=== PATIENT | female | born 1970 | race Hispanic/Latino ===

== ENCOUNTER 2017-09-30 16:00 | Outpatient (RCR) | payer OTHER, SELFPAY ==
--- NOTE | 2017-08-18 15:55 | PT.OTN ---
Current Diagnoses Effusion, right knee (08/18/17) Stiffness of right knee, not elsewhere classified (08/18/17) Muscle weakness (generalized) (08/18/17) Other abnormalities of gait and mobility (08/18/17) Other tear of lateral meniscus, current injury, right knee, initial encounter (08/18/17) Other tear of lateral meniscus, current injury, right knee, subsequent encounter (08/18/17) Transition note: On August 17, 2017 our therapy services consisting of Speech, Occupational, and Physical Therapy transitioned from the [employer] electronic documentation system to a new [employer] electronic documentation system.?? All documentation prior to August 17 can be found under [employer] saved data. From August 17 forward all medical record documentation will be in [employer] 6.1.
--- NOTE | 2017-08-18 17:35 | PT.OTN ---
Current Diagnoses Effusion, right knee (08/18/17) Stiffness of right knee, not elsewhere classified (08/18/17) Muscle weakness (generalized) (08/18/17) Other abnormalities of gait and mobility (08/18/17) Other tear of lateral meniscus, current injury, right knee, initial encounter (08/18/17) Other tear of lateral meniscus, current injury, right knee, subsequent encounter (08/18/17) Physical Therapy Treatment Note PT-OP-A Visit Information Start: 08/18/17 16:01 Freq: Status: Active Protocol: Activity Type Activity Date Activity User E-Sign Co-Sign Detail Recorded Client Recorded Date Recorded By Document 08/18/17 17:10 [facility] [email or web address] 08/18/17 17:34 [facility] 08/18/17 17:10 Out-Patient Physical Therapy Visit Information [Visit Information] -Visit Type Treatment Note -Visit Start Time 15:15 -Visit Stop Time 16:08 -Total Visit Minutes 53 -Visit Number 2/ of current auth. (60 total/yr) -Number of CHIEF OPERATOR SYNTHESIS Visits 0 [Evaluation Information] -Evaluation Date 08/13/17 PT-OP-C Subjective Start: 08/18/17 16:01 Freq: Status: Active Protocol: Activity Type Activity Date Activity User E-Sign Co-Sign Detail Recorded Client Recorded Date Recorded By Document 08/18/17 17:10 [facility] [email or web address] 08/18/17 17:34 [facility] 08/18/17 17:10 OP-PT Subjective [Patient Comments] -Patient Comments Pt notes that she has been doing her HEP as instructed. She still has some pain with immediate walking upon prolonged sitting. -Patient Reported Progress Improving PT-OP-K Range of Motion Start: 08/18/17 16:01 Freq: Status: Active Protocol: Activity Type Activity Date Activity User E-Sign Co-Sign Detail Recorded Client Recorded Date Recorded By Document 08/18/17 17:10 [facility] [email or web address] 08/18/17 17:34 [facility] 08/18/17 17:10 Knee Goniometric Range of Motion [Knee] Measured in Degrees Right -Knee ROM WFL No -Patient Position Supine -Extension Active (degrees) 2 -Extension Passive (degrees) 0 PT-OP-Q Treatments Start: 08/18/17 16:01 Freq: Status: Active Protocol: Activity Type Activity Date Activity User E-Sign Co-Sign Detail Recorded Client Recorded Date Recorded By Document 08/18/17 17:10 [place] [id number] 08/18/17 17:34 [facility] 08/18/17 17:10 Gym Equipment [Shuttle Recovery] Unilateral Squats -Details bilateral -Resistance 25 -Shuttle Recovery Platform Stable -Reps/Time 15 Bilateral Squats -Resistance 50 -Shuttle Recovery Platform Stable -Reps/Time 15 [Shuttle Balance] 1 -Details Red- DL normal, semi-tandem -Reps/Duration 4 Therapeutic Exercises [Supine Exercises] 1 -Supine Exercise Name SLR flexion- neutral and RLE ER -Side right -Reps/Minutes 15 neutral, 8 with ER [Sidelying Exercises] 1 -Sidelying Exercise Name clamshells -Side right -Reps/Minutes 20 [Standing Exercises] 2 -Standing Exercise Name Gastroc stretch -Side bilateral -Equipment Used THAI -Reps/Minutes 3 min 1 -Standing Exercise Name TKE -Side right -Resistance L3 band -Reps/Minutes 20 Manual Therapy Treatment [Joint Mobilizations] 2 -Joint PF joint -Direction superior, inferior, medial -Grade IV -Body Position Supine -Reps/Duration 11 min 1 -Joint Tibiofemoral -Direction A/P -Grade IV -Body Position Supine -Reps/Duration 8 min PT-OP-R Modalities Start: 08/18/17 16:01 Freq: Status: Active Protocol: Activity Type Activity Date Activity User E-Sign Co-Sign Detail Recorded Client Recorded Date Recorded By Document 08/18/17 17:10 [email or web address] 08/18/17 17:34 [facility] 08/18/17 17:10 Hot Pack/Cold Pack [Treatment] Cold Pack -Location R knee- ant/ posterior -Patient Position Supine -Treatment Duration (minutes) 10 -Patient Tolerance Good PT-OP-T Assessment and Plan Start: 08/18/17 16:01 Freq: Status: Active Protocol: Activity Type Activity Date Activity User E-Sign Co-Sign Detail Recorded Client Recorded Date Recorded By Document 08/18/17 17:10 [place] [id number] 08/18/17 17:34 [facility] 08/18/17 17:10 Physical Therapy Assessment [Rehab Potential] -Rehabilitation Potential Excellent [Impairments] -Impairments Balance Pain ROM [Assessment Summary] -Assessment Pt tolerated manual therapy with improved standing R knee ROM (able to achieve full extension in standing). Pt requires occasional tactile cuing to prevent hip rotation with TKE activity. Pt with c/o pain during Shuttle Recovery, but decreased when lowered resistance. Physical Therapy Plan [Frequency and Duration] -Frequency of Treatment 2x/Week -Duration of Treatment 53 -Plan of Care Start Date 08/13/17 [Next Visit Focus/Plan] -Next Visit Plan R knee ROM and strength progression, prone vs standing HS curls, standing balance, heel raises.
--- NOTE | 2017-08-25 17:43 | PT.OTN ---
Current Diagnoses Effusion, right knee (08/25/17) Stiffness of right knee, not elsewhere classified (08/25/17) Muscle weakness (generalized) (08/25/17) Other abnormalities of gait and mobility (08/25/17) Other tear of lateral meniscus, current injury, right knee, initial encounter (08/25/17) Other tear of lateral meniscus, current injury, right knee, subsequent encounter (08/25/17) Physical Therapy Treatment Note PT-OP-A Visit Information Start: 08/18/17 16:01 Freq: Status: Active Protocol: Document 08/25/17 17:30 [facility] (Rec: 08/25/17 17:43 [facility] [email or web address]) Out-Patient Physical Therapy Visit Information Visit Information Visit Type Treatment Note Visit Start Time 15:13 Visit Stop Time 15:53 Total Visit Minutes 40 Visit Number 3 of current auth. (60 total/yr) Number of GRIZZLY WORKER Visits 0 PT-OP-C Subjective Start: 08/18/17 16:01 Freq: Status: Active Protocol: Document 08/25/17 17:30 [facility] (Rec: 08/25/17 17:43 [facility] [email or web address]) OP-PT Subjective Patient Comments Patient Comments Pt reports more confidence with stairs although she admits she almost slipped in the shower again. Patient Reported Progress Improving PT-OP-K Range of Motion Start: 08/18/17 16:01 Freq: Status: Active Protocol: Document 08/25/17 17:30 [facility] (Rec: 08/25/17 17:43 [facility] [email or web address]) Knee Goniometric Range of Motion Knee Measured in Degrees Right Extension Active (degrees) 0 PT-OP-Q Treatments Start: 08/18/17 16:01 Freq: Status: Active Protocol: Document 08/25/17 17:30 [facility] (Rec: 08/25/17 17:43 [facility] [email or web address]) Gym Equipment Cable Column (Body Solid) Leg Curl Details bilateral Resistance 2 plates Reps/Time 15 reps Shuttle Recovery Unilateral Squats Resistance 25 Shuttle Recovery Platform Stable Reps/Time 15 reps Bilateral Squats Resistance 50 Shuttle Recovery Platform Stable Reps/Time 20 reps Shuttle Balance 1 Details Red- DL normal, semi-tandem, lateral WBOS Reps/Duration 8 min. Therapeutic Ball 1 Exercise Details bilateral knee flex/ext. Ball Size/Color 55 cm red Body Position Supine Reps/Duration 25 reps Therapeutic Exercises Prone Exercises 1 Prone Exercise Name Planks- forward Reps/Minutes 1 rep. Comments 35 sec to fatigue. Standing Exercises 2 Standing Exercise Name Gastroc stretch Side bilateral Equipment Used THAI Reps/Minutes 3 min Manual Therapy Treatment Joint Mobilizations 2 Joint PF joint Direction superior, inferior, medial Grade IV Body Position Supine Reps/Duration 10 min. PT-OP-T Assessment and Plan Start: 08/18/17 16:01 Freq: Status: Active Protocol: Document 08/25/17 17:30 [facility] (Rec: 08/25/17 17:43 [facility] [email or web address]) Physical Therapy Assessment Assessment Summary Assessment Pt able to achieve 0 degrees of knee extension AROM this session, but still with c/o pain during active movement and does not tolerate body weight exercises as of this time. Overall, pt appears to be improving, but will require ongoing progression as tolerated with strengthening, maintaining ROM, and improvements with balance and return to prior level of function. Physical Therapy Plan Frequency and Duration Frequency of Treatment 2x/Week Duration of Treatment 53 Plan of Care Start Date 08/13/17 Next Visit Focus/Plan Next Visit Plan progression of knee strengthening, balance, toward CKC activities.
--- NOTE | 2017-09-03 16:18 | PT.OTN ---
Current Diagnoses Effusion, right knee (09/03/17) Stiffness of right knee, not elsewhere classified (09/03/17) Muscle weakness (generalized) (09/03/17) Other abnormalities of gait and mobility (09/03/17) Other tear of lateral meniscus, current injury, right knee, initial encounter (09/03/17) Other tear of lateral meniscus, current injury, right knee, subsequent encounter (09/03/17) Physical Therapy Treatment Note PT-OP-A Visit Information Start: 08/18/17 16:01 Freq: Status: Active Protocol: Document 09/03/17 15:59 [facility] (Rec: 09/03/17 16:17 [facility] [email or web address]) Out-Patient Physical Therapy Visit Information Visit Information Visit Type Treatment Note Visit Start Time 15:15 Visit Stop Time 16:05 Total Visit Minutes 50 Visit Number 06/28 (60 total/yr) Number of PLUG STITCHER Visits 0 Evaluation Information Evaluation Date 08/13/17 PT-OP-C Subjective Start: 08/18/17 16:01 Freq: Status: Active Protocol: Document 09/03/17 15:59 [facility] (Rec: 09/03/17 16:17 [facility] [email or web address]) OP-PT Subjective Patient Comments Patient Comments Pt reports she has been doing her HEP. She is able to do stairs without c/o pain. Patient Reported Progress Improving PT-OP-K Range of Motion Start: 08/18/17 16:01 Freq: Status: Active Protocol: Document 09/03/17 15:59 [facility] (Rec: 09/03/17 16:17 [facility] [email or web address]) Knee Goniometric Range of Motion Knee Measured in Degrees Right Knee ROM WFL Yes Patient Position Supine Flexion Active (degrees) 135 Flexion Passive (degrees) 145 Extension Active (degrees) 0 Hyper-Extension Active 2 PT-OP-Q Treatments Start: 08/18/17 16:01 Freq: Status: Active Protocol: Document 09/03/17 15:59 [facility] (Rec: 09/03/17 16:17 [facility] [email or web address]) Gym Equipment Shuttle Recovery Unilateral Squats Resistance 75 Shuttle Recovery Platform Stable Reps/Time 20 reps Bilateral Squats Resistance 112 Shuttle Recovery Platform Stable Reps/Time 20 reps Shuttle Balance 1 Details Red- DL normal, semi-tandem, lateral WBOS Reps/Duration 5 min. Therapeutic Exercises Supine Exercises 1 Supine Exercise Name SLR flexion- neutral and RLE ER Side right Resistance 2 Reps/Minutes 15 each Standing Exercises 3 Standing Exercise Name 1/2 lunges with BOSU for L knee Reps/Minutes 10 reps Comments UE assist 2 Standing Exercise Name Gastroc stretch Side bilateral Equipment Used THAI Reps/Minutes 3 min Gait Training Gait Activity 1 Description 6 steps Device Used none Level of Assistance indep. Treatment Focus 2 min Comments no rails. Mild ER of R foot descending steps. Manual Therapy Treatment Joint Mobilizations 2 Joint PF joint Direction superior, inferior, medial Grade IV Body Position Supine Reps/Duration 4 min. Neuro Re-Education Treatment Balance Activities 1 Details DL standing on BOSU Surface black and blue surface Comments 4 min. PT-OP-R Modalities Start: 08/18/17 16:01 Freq: Status: Active Protocol: Document 09/03/17 15:59 [facility] (Rec: 09/03/17 16:17 [facility] [email or web address]) Hot Pack/Cold Pack Treatment Cold Pack Location R knee- ant/posterior Patient Position Supine Treatment Duration (minutes) 10 Patient Tolerance Good PT-OP-T Assessment and Plan Start: 08/18/17 16:01 Freq: Status: Active Protocol: Document 09/03/17 15:59 [facility] (Rec: 09/03/17 16:17 [facility] [email or web address]) Physical Therapy Assessment Assessment Summary Assessment Pt's R knee ROM is at normal ranges at this time, no pain with knee ROM testing. Pt still with lateral pain in the knee with stabilization training, and demonstrates loss of balance when on Shuttle Balance first aid trainer due to impaired tolerance to increased WB on the R knee. Pt unable to complete a full lunge due to hesitancy of increased weight on the R knee , although she reports she was able to do this before injury without difficulty. Physical Therapy Plan Frequency and Duration Frequency of Treatment 2x/Week Duration of Treatment 53 Plan of Care Start Date 08/13/17 Next Visit Focus/Plan Next Visit Plan Balance training, weight shifting to RLE to improve tolerance with increased function and recreation.
--- NOTE | 2017-09-08 17:58 | PT.OTN ---
Addendum entered and electronically signed by Nathan Cardoso, PT 09/08/17 17:59: inaccurate treatment duration under physical therapy plan- duration for this treatment was 40 min. Original Note: Current Diagnoses Effusion, right knee (09/08/17) Stiffness of right knee, not elsewhere classified (09/08/17) Muscle weakness (generalized) (09/08/17) Other abnormalities of gait and mobility (09/08/17) Other tear of lateral meniscus, current injury, right knee, initial encounter (09/08/17) Other tear of lateral meniscus, current injury, right knee, subsequent encounter (09/08/17) Physical Therapy Treatment Note PT-OP-A Visit Information Start: 08/18/17 16:01 Freq: Status: Active Protocol: Document 09/08/17 15:55 [facility] (Rec: 09/08/17 17:57 [facility] [email or web address]) Out-Patient Physical Therapy Visit Information Visit Information Visit Type Treatment Note Visit Start Time 15:15 Visit Stop Time 15:55 Total Visit Minutes 40 Visit Number 5/12 (60 total/yr) Number of EMPLOYMENT OFFICER Visits 0 Evaluation Information Evaluation Date 08/13/17 PT-OP-C Subjective Start: 08/18/17 16:01 Freq: Status: Active Protocol: Document 09/08/17 15:55 [facility] (Rec: 09/08/17 17:57 [facility] [email or web address]) OP-PT Subjective Patient Comments Patient Comments Pt states that weight shifting onto the RLE is still the most painful activity. PT-OP-Q Treatments Start: 08/18/17 16:01 Freq: Status: Active Protocol: Document 09/08/17 15:55 [facility] (Rec: 09/08/17 17:57 [facility] [email or web address]) Gym Equipment Shuttle Recovery Unilateral Squats Resistance 50 Shuttle Recovery Platform Stable Reps/Time 15 reps Bilateral Squats Resistance 112 Shuttle Recovery Platform Unstable Reps/Time 20 reps Shuttle Balance 1 Details Red- DL normal, semi-tandem, lateral WBOS Reps/Duration 5 min. Sport Cord 1 Exercise Details Resisted walk- fwd, bkwd, lateral Cord/Resistance black with blue Reps/Duration 6 each Manual Therapy Treatment Soft Tissue Mobilization 2 Body Location R Lateral hamstring Mobilization Type Strumming Intensity/Depth Moderate Body Position Supine 1 Body Location R lateral knee @ arthroscopic incision Mobilization Type Myofascial Release Intensity/Depth Moderate Body Position Supine Joint Mobilizations 2 Joint PF joint Direction superior, inferior, medial Grade IV Body Position Supine Reps/Duration 6 min. PT-OP-R Modalities Start: 08/18/17 16:01 Freq: Status: Active Protocol: Document 09/03/17 15:59 [facility] (Rec: 09/03/17 16:17 [facility] [email or web address]) Hot Pack/Cold Pack Treatment Cold Pack Location R knee- ant/posterior Patient Position Supine Treatment Duration (minutes) 10 Patient Tolerance Good PT-OP-T Assessment and Plan Start: 08/18/17 16:01 Freq: Status: Active Protocol: Document 09/08/17 15:55 [facility] (Rec: 09/08/17 17:57 [facility] [email or web address]) Physical Therapy Assessment Assessment Summary Assessment Pt with impaired eccentric control with WB on the RLE with resisted walking, and tendency to lean to the L with lateral balancing on the Shuttle Balance Board. Pt with tenderness at the lateral HS and joint line at arthroscopic incisional area, but improving. Physical Therapy Plan Frequency and Duration Frequency of Treatment 2x/Week Duration of Treatment 53 Plan of Care Start Date 08/13/17 Next Visit Focus/Plan Next Visit Plan Step up/down with resistance from sports cord, cont to advance weight shifting and equal standing weight distribution. Please Sign and Return: I have reviewed this Plan of Care and certify that the skilled therapy services above are required to meet the patient???s needs. Physician Signature Date Printed Name and Credentials Clinical Instructor Signature Printed Name and Credentials
--- NOTE | 2017-09-10 16:49 | PT.OTN ---
Current Diagnoses Effusion, right knee (09/10/17) Stiffness of right knee, not elsewhere classified (09/10/17) Muscle weakness (generalized) (09/10/17) Other abnormalities of gait and mobility (09/10/17) Other tear of lateral meniscus, current injury, right knee, initial encounter (09/10/17) Other tear of lateral meniscus, current injury, right knee, subsequent encounter (09/10/17) Physical Therapy Treatment Note PT-OP-A Visit Information Start: 08/18/17 16:01 Freq: Status: Active Protocol: Document 09/10/17 15:54 [facility] (Rec: 09/10/17 15:59 [facility] [email or web address]) Out-Patient Physical Therapy Visit Information Visit Information Visit Type Treatment Note Visit Start Time 15:19 Visit Stop Time 15:54 Total Visit Minutes 35 Visit Number 09/28 (60 total/yr) Number of AD TAKER Visits 0 Evaluation Information Evaluation Date 08/13/17 PT-OP-C Subjective Start: 08/18/17 16:01 Freq: Status: Active Protocol: Document 09/10/17 15:54 [facility] (Rec: 09/10/17 15:59 [facility] [email or web address]) OP-PT Subjective Patient Comments Patient Comments Pt notes that she is still having trouble wanting to increased WB on the RLE. Her knee was sore after previous session. PT-OP-F Manual Assessment Start: 09/10/17 15:54 Freq: Status: Active Protocol: Document 09/10/17 15:54 [facility] (Rec: 09/10/17 15:59 [facility] [email or web address]) Manual Assessments Joint Mobility Assessment Joint Mobility Assessment Hypomobile: PF medial, inf, superior glides PT-OP-K Range of Motion Start: 08/18/17 16:01 Freq: Status: Active Protocol: Document 09/03/17 15:59 [facility] (Rec: 09/03/17 16:17 [facility] [email or web address]) Knee Goniometric Range of Motion Knee Measured in Degrees Right Knee ROM WFL Yes Patient Position Supine Flexion Active (degrees) 135 Flexion Passive (degrees) 145 Extension Active (degrees) 0 Hyper-Extension Active 2 PT-OP-Q Treatments Start: 08/18/17 16:01 Freq: Status: Active Protocol: Document 09/10/17 15:54 [facility] (Rec: 09/10/17 15:59 [facility] [email or web address]) Gym Equipment Cable Column (Body Solid) Leg Extension Details bilateral Resistance 3 plates Reps/Time 20 reps Leg Curl Details bilateral Resistance 3 plates Reps/Time 20 reps Shuttle Balance 1 Details Red- DL normal, semi-tandem, lateral WBOS Reps/Duration 5 min. Therapeutic Exercises Standing Exercises 4 Standing Exercise Name Step up/down on 5 step with sports cord resistance Side bilateral Resistance black with blue SC Reps/Minutes 10 each PT-OP-R Modalities Start: 08/18/17 16:01 Freq: Status: Active Protocol: Document 09/03/17 15:59 [facility] (Rec: 09/03/17 16:17 [facility] [email or web address]) Hot Pack/Cold Pack Treatment Cold Pack Location R knee- ant/posterior Patient Position Supine Treatment Duration (minutes) 10 Patient Tolerance Good PT-OP-T Assessment and Plan Start: 08/18/17 16:01 Freq: Status: Active Protocol: Document 09/10/17 15:54 [facility] (Rec: 09/10/17 16:48 [facility] [email or web address]) Physical Therapy Assessment Assessment Summary Assessment Pt with hesitancy to place RLE in WB onto unstable surfaces, but improved after gentle part-practice into full motion of activity. Pt still with c/ o discomfort in the lateral R knee, and would greatly benefit from the continuation of skilled physical therapy to improve her gait and functional mobility to premorbid levels. Physical Therapy Plan Frequency and Duration Frequency of Treatment 2x/Week Plan of Care Start Date 08/13/17 Next Visit Focus/Plan Next Note Type Treatment Note Next Visit Plan prog. standing balance, R knee strengthening as tolerated. Please Sign and Return: I have reviewed this Plan of Care and certify that the skilled therapy services above are required to meet the patient???s needs. Physician Signature Date Printed Name and Credentials Clinical Instructor Signature Printed Name and Credentials
--- NOTE | 2017-09-15 17:10 | PT.OTN ---
Current Diagnoses Effusion, right knee (09/15/17) Stiffness of right knee, not elsewhere classified (09/15/17) Muscle weakness (generalized) (09/15/17) Other abnormalities of gait and mobility (09/15/17) Other tear of lateral meniscus, current injury, right knee, initial encounter (09/15/17) Other tear of lateral meniscus, current injury, right knee, subsequent encounter (09/15/17) Physical Therapy Treatment Note PT-OP-A Visit Information Start: 08/18/17 16:01 Freq: Status: Active Protocol: Document 09/15/17 15:55 [facility] (Rec: 09/15/17 17:10 [facility] [email or web address]) Out-Patient Physical Therapy Visit Information Visit Information Visit Type Treatment Note Visit Start Time 15:15 Visit Stop Time 15:55 Total Visit Minutes 40 Visit Number 10/28 (60 total/yr) Number of DIRECTOR EDUCATION Visits 0 Evaluation Information Evaluation Date 08/13/17 PT-OP-C Subjective Start: 08/18/17 16:01 Freq: Status: Active Protocol: Document 09/15/17 15:55 [facility] (Rec: 09/15/17 17:10 [facility] [email or web address]) OP-PT Subjective Patient Comments Patient Comments Pt notes pain along L joint line and some lateral hamstring musculature this session. PT-OP-F Manual Assessment Start: 09/10/17 15:54 Freq: Status: Active Protocol: Document 09/15/17 15:55 [facility] (Rec: 09/15/17 17:10 [facility] [email or web address]) Manual Assessments Soft Tissue Assessment Soft Tissue Mobility Assessment TTP: lateral HS R knee Joint Mobility Assessment Joint Mobility Assessment Hypomobile: PF medial, inf, superior glides R knee PT-OP-Q Treatments Start: 08/18/17 16:01 Freq: Status: Active Protocol: Document 09/15/17 15:55 [facility] (Rec: 09/15/17 17:10 [facility] [email or web address]) Gym Equipment Cable Column (Body Solid) Leg Extension Details bilateral Resistance 3 plates Reps/Time 20 reps Leg Curl Details bilateral, unilateral Resistance 4 plates B, 3 plate U Reps/Time 15 reps Shuttle Balance 1 Details Red- DL normal, lateral WBOS Reps/Duration 10 min. Comments with and without perturbations . Therapeutic Exercises Sitting Exercises 1 Sitting Exercise Name Stool scoots (HS) Side bilateral Reps/Minutes 30 ft Standing Exercises 5 Standing Exercise Name Fitter Side bilateral Reps/Minutes 15 reps 4 Standing Exercise Name Step up/down on 5 step with sports cord resistance Side bilateral Resistance black with blue SC Reps/Minutes 12 each Comments fwd, bkwd, R and crossover with RLE going L Manual Therapy Treatment Soft Tissue Mobilization 2 Body Location R Lateral hamstring Mobilization Type Strumming Intensity/Depth Moderate Body Position Supine 1 Body Location R lateral knee @ arthroscopic incision Mobilization Type Myofascial Release Intensity/Depth Moderate Body Position Supine Joint Mobilizations 2 Joint PF joint Direction superior, inferior, medial Grade IV Body Position Supine Reps/Duration 6 min. PT-OP-T Assessment and Plan Start: 08/18/17 16:01 Freq: Status: Active Protocol: Document 09/15/17 15:55 [facility] (Rec: 09/15/17 17:10 [facility] [email or web address]) Physical Therapy Assessment Assessment Summary Assessment Pt requires UE assistance on Shuttle Balance Board with perturbations, but effective to increase WB on the R affected side. Pt was able to do cross-over step up onto 5 step with verbal encouragement due to fear of WB on the RLE. Physical Therapy Plan Frequency and Duration Frequency of Treatment 2x/Week Duration of Treatment 8 weeks Plan of Care Start Date 08/13/17 Plan of Care End Date 10/07/17 Next Visit Focus/Plan Next Note Type Treatment Note Next Visit Plan progress HS and quad strength R knee, standing balance and balance reactions. Please Sign and Return: I have reviewed this Plan of Care and certify that the skilled therapy services above are required to meet the patient???s needs. Physician Signature Date Printed Name and Credentials Clinical Instructor Signature Printed Name and Credentials
--- NOTE | 2017-09-30 17:17 | PT.OTN ---
Current Diagnoses Effusion, right knee (09/30/17) Stiffness of right knee, not elsewhere classified (09/30/17) Muscle weakness (generalized) (09/30/17) Other abnormalities of gait and mobility (09/30/17) Other tear of lateral meniscus, current injury, right knee, initial encounter (09/30/17) Other tear of lateral meniscus, current injury, right knee, subsequent encounter (09/30/17) Physical Therapy Treatment Note PT-OP-A Visit Information Start: 08/18/17 16:01 Freq: Status: Active Protocol: Document 09/30/17 16:55 RCC (Rec: 09/30/17 17:15 RCC [email or web address]) Out-Patient Physical Therapy Visit Information Visit Information Visit Type Treatment Note Visit Start Time 16:02 Visit Stop Time 16:55 Total Visit Minutes 55 Visit Number 11/28 (60 total/yr) Number of INSTRUMENTATION AND CONTROLS TECHNICIAN Visits 0 Evaluation Information Evaluation Date 08/13/17 PT-OP-C Subjective Start: 08/18/17 16:01 Freq: Status: Active Protocol: Document 09/30/17 16:55 RCC (Rec: 09/30/17 17:16 RCC [email or web address]) OP-PT Subjective Patient Comments Patient Comments Pt notes mild swelling in the R knee. Overall, she still has difficulty with placing increased WB on the RLE. PT-OP-F Manual Assessment Start: 09/10/17 15:54 Freq: Status: Active Protocol: Document 09/30/17 16:55 RCC (Rec: 09/30/17 17:15 RCC [email or web address]) Manual Assessments Soft Tissue Assessment Soft Tissue Mobility Assessment TTP: lateral R knee joint line near arthroscopic incision. PT-OP-K Range of Motion Start: 08/18/17 16:01 Freq: Status: Active Protocol: Document 09/03/17 15:59 RCC (Rec: 09/03/17 16:17 RCC [email or web address]) Knee Goniometric Range of Motion Knee Measured in Degrees Right Knee ROM WFL Yes Patient Position Supine Flexion Active (degrees) 135 Flexion Passive (degrees) 145 Extension Active (degrees) 0 Hyper-Extension Active 2 PT-OP-Q Treatments Start: 08/18/17 16:01 Freq: Status: Active Protocol: Document 09/30/17 16:55 RCC (Rec: 09/30/17 17:15 RCC [email or web address]) Gym Equipment Shuttle Recovery Unilateral Squats Resistance 50 Shuttle Recovery Platform Stable Reps/Time 15 reps Bilateral Squats Resistance 100 Shuttle Recovery Platform Stable Reps/Time 25 reps Shuttle Balance 1 Details Red- DL normal, lateral WBOS Reps/Duration 5 min. Comments with and without perturbations . Sport Cord 2 Exercise Details Step up/down- fwd, bkwd, lateral & cross-over Cord/Resistance blue with black Reps/Duration 10 each Comments 5 step Therapeutic Exercises Standing Exercises 3 Standing Exercise Name 1/2 lunges with BOSU (blue) Side right Reps/Minutes 10 reps 1 Standing Exercise Name Wall squats Side bilateral Equipment Used 55 cm ball Reps/Minutes 10 reps Manual Therapy Treatment Soft Tissue Mobilization 1 Body Location R lateral knee @ arthroscopic incision Mobilization Type Myofascial Release Intensity/Depth Moderate Body Position Supine Joint Mobilizations 2 Joint PF joint Direction superior, inferior, medial Grade IV Body Position Supine Reps/Duration 8 min. PT-OP-R Modalities Start: 08/18/17 16:01 Freq: Status: Active Protocol: Document 09/30/17 16:55 RCC (Rec: 09/30/17 17:16 [facility] [email or web address]) Hot Pack/Cold Pack Treatment Cold Pack Location R knee- ant/posterior Patient Position Supine Treatment Duration (minutes) 10 Patient Tolerance Good PT-OP-T Assessment and Plan Start: 08/18/17 16:01 Freq: Status: Active Protocol: Document 09/30/17 16:55 RCC (Rec: 09/30/17 17:15 [facility] [email or web address]) Physical Therapy Assessment Assessment Summary Assessment Pt still with anxiety/ apprehension to place increased WB on the RLE on stable and unstable surfaces. Pt unable to perform full squat on ball with wall, but did achieve ~70 degrees of knee flexion. Physical Therapy Plan Frequency and Duration Frequency of Treatment 2x/Week Duration of Treatment 8 weeks Plan of Care Start Date 08/13/17 Plan of Care End Date 10/07/17 Next Visit Focus/Plan Next Note Type Progress Note Next Visit Plan reassess objective measures Please Sign and Return: I have reviewed this Plan of Care and certify that the skilled therapy services above are required to meet the patient?s needs. Physician Signature Date Printed Name and Credentials Clinical Instructor Signature Printed Name and Credentials
--- NOTE | 2018-01-26 09:40 | PT.OPDS ---
Current Diagnoses Effusion, right knee (09/30/17) Stiffness of right knee, not elsewhere classified (09/30/17) Muscle weakness (generalized) (09/30/17) Other abnormalities of gait and mobility (09/30/17) Other tear of lateral meniscus, current injury, right knee, initial encounter (09/30/17) Other tear of lateral meniscus, current injury, right knee, subsequent encounter (09/30/17) Provider Visit Care Team Role Provider Type Sagar Martin MD Attending Provider Physician Family Provider Primary Care Provider Specialty: Family Practice Address: [address] [place] [address] Email: [email or web address] Visit Number Visit Number 11/28 (60 total/yr) Discharge Summary PT-OP-C Subjective Start: 08/18/17 16:01 Freq: Status: Active Protocol: Document 01/26/18 09:36 RCC (Rec: 01/26/18 09:40 RCC [email or web address]) OP-PT Subjective Patient Comments Patient Comments Pt cancelled her final PT appointments, has not attended PT since 09/30/2017 for her R knee. She states she is still having some difficulty with weight shifting, but doing better overall. PT-OP-F Manual Assessment Start: 09/10/17 15:54 Freq: Status: Active Protocol: Document 09/30/17 16:55 RCC (Rec: 09/30/17 17:15 RCC [email or web address]) Manual Assessments Soft Tissue Assessment Soft Tissue Mobility Assessment TTP: lateral R knee joint line near arthroscopic incision. PT-OP-K Range of Motion Start: 08/18/17 16:01 Freq: Status: Active Protocol: Document 09/03/17 15:59 RCC (Rec: 09/03/17 16:17 RCC [email or web address]) Knee Goniometric Range of Motion Knee Measured in Degrees Right Knee ROM WFL Yes Patient Position Supine Flexion Active (degrees) 135 Flexion Passive (degrees) 145 Extension Active (degrees) 0 Hyper-Extension Active 2 PT-OP-T Assessment and Plan Start: 08/18/17 16:01 Freq: Status: Active Protocol: Document 01/26/18 09:36 RCC (Rec: 01/26/18 09:40 RCC [email or web address]) Physical Therapy Assessment Assessment Summary Assessment Pt last attended physical therapy on 09/30/2017, and did not attend any further appointments during the most recent plan of care. Overall, pt was improving with gait and stairs, but still somewhat with difficulty in weight shifting due to apprehension/ anxiety vs. pain. Pt will be discharged at this time, as she has not been seen in this clinic for nearly 4 months. Recommend follow up with surgeon if issues/concerns continue. Unable to perform objective measures, as pt did not return for her re- evaluation. Physical Therapy Plan Discharge Physical Therapy Discharge Reasons No Longer Attending PT Discharge Comments pt did not complete most recent POC.
== END 2018-01-28 11:33 ==
LOC: PHYS 16:00
PROVIDERS: Family Provider Family Medicine; PCP Family Medicine; Visit Provider Family Medicine
DX: S83.281A Other tear of lateral meniscus, current injury, right knee, initial encounter (principal); S83.281D Other tear of lateral meniscus, current injury, right knee, subsequent encounter; R26.89 Other abnormalities of gait and mobility; M62.81 Muscle weakness (generalized); M25.661 Stiffness of right knee, not elsewhere classified; M25.461 Effusion, right knee
CPT/HCPCS: 97010; 97110; 97112; 97140

== ENCOUNTER 2017-12-04 09:30 | Emergency (ER) | payer OTHER, SELFPAY ==
[2017-12-04 09:36] VITALS: BP 135/92; PULSE 126; RESP 18; TEMP 37.1; O2SAT 100; BMI 31.1
--- NOTE | 2017-12-04 09:50 | DI.RAD.S_ITS ---
PROCEDURE: XR CHEST 1V INDICATIONS: suspected sepsis TECHNIQUE: One view of the chest was acquired. COMPARISON: None. FINDINGS: Surgical changes and devices: None. Lungs and pleura: No pleural effusions or pneumothorax. Lungs are clear. Mediastinum: Mediastinal contours appear normal. Heart size is normal. Bones and chest wall: No suspicious bony lesions. Overlying soft tissues appear unremarkable. IMPRESSION: No acute process. Dictated by: Humberto Fulton M.D. on 12/04/2017 at 10:32 Approved by: Humberto Fulton M.D. on 12/04/2017 at 10:33
[2017-12-04 09:55] LABS: Bacteria Urine None Seen
[2017-12-04 09:56] LABS: Appearance Urine UA SL CLOUDY; Bilirubin Urine UA 2+ (NEGATIVE); Color Urine UA ORANGE; Glucose Urine UA TRACE g/dL (Normal); Ketones Urine UA 1+ (NEGATIVE); Leukocyte Esterase Urine UA TRACE (NEGATIVE); Nitrite Urine UA Negative (Negative); Occult Blood Urine UA 2+ (Negative); Protein Urine UA 3+ (Negative); pH Urine UA 5.5 (4.5-8.0)
[2017-12-04 10:01] LABS: Ictotest Urine Positive (Negative)
[2017-12-04 10:03] LABS: Culture Indicated Urine Cult Not Indicated; Granular Casts Urine 0-1/LPF; RBC Urine 5-10/HPF (0-5/HPF); Squamous Epithelial Cell Urine 5-10 /HPF; WBC Urine 1-5/HPF (0-5/HPF)
[2017-12-04 10:11] VITALS: BP 141/92; PULSE 120; RESP 18; TEMP 37.7; O2SAT 100
[2017-12-04 10:17] LABS: Add Manual Diff / Slide Review NO; Basophils Percent Auto 0.3 % (0-2); Eosinophils Percent Auto 0.1 % (2-4); Hematocrit 40.6 % (36-46); Hemoglobin 13.9 g/dL (12.0-16.0); Lymphocytes Percent Auto 7.9 % (25-40); Mean Corpuscular HGB Conc 34.2 % (30-36); Mean Corpuscular Hemoglobin 29.9 PG (26-34); Mean Corpuscular Volume 87.4 fL (80-100); Monocytes Percent Auto 6.9 % (3-14); Neutrophils Absolute Auto 10600 /uL (3000-5900); Neutrophils Percent Auto 84.8 % (50-75); Platelet Count 127 X10^3/uL (150-400); Red Blood Cell Count 4.65 X10^6/uL (4.0-5.2); Red Cell Distribution Width 14.6 % (11.6-14.8); White Blood Cell Count 12.5 X10^3/uL (4.5-11.0)
[2017-12-04] MEDS: SODIUM CHLORIDE 0.9% 1,000 ML 1000 ML IV ×2 (10:17→12:05)
[2017-12-04 10:24] LABS: INR 1.3 (0.9-1.3); Prothrombin Time 14.6 SECONDS (10.1-12.7)
[2017-12-04 10:26] LABS: PTT Partial Thromboplastin Tim 28 SECONDS (26.4-36.2)
[2017-12-04 10:29] LABS: Alanine Aminotransferase 106 IU/L (9-52); Albumin 3.7 g/dL (3.5-5.0); Alkaline Phosphatase 124 U/L (38-126); Aspartate Aminotransferase 77 IU/L (14-36); Bilirubin Total 1.3 mg/dL (0.2-1.3); Blood Urea Nitrogen 14 mg/dL (7-17); Calcium 8.3 mg/dL (8.4-10.2); Carbon Dioxide 25 mmol/L (22-32); Chloride 96 mmol/L (98-107); Estimated Glomerular Filt Rate 59.2 mL/min (>60); Globulin 3.6 g/dL (1.7-4.1); Glucose 120 mg/dL (70-100); HEMOLYSIS 82 (0-50); Lactate (Lactic Acid) 1.2 mmol/L (0.7-2.1); Lipase 82 U/L (23-300); Potassium 4.4 mmol/L (3.4-5.1); Sodium 130 mmol/L (137-145); Total Protein 7.3 g/dL (6.3-8.2)
--- NOTE | 2017-12-04 10:34 | DI.CT.S_ITS ---
PROCEDURE: CT ABDOMEN PELVIS W CON INDICATIONS: left sided abd Pain TECHNIQUE: After the administration of intravenous contrast, 5 mm thick sections acquired from the diaphragm to the symphysis. 5 mm coronal and sagittal reformats were acquired. For radiation dose reduction, the following was used: automated exposure control, adjustment of mA and/or kV according to patient size. COMPARISON: [facility], CT, KIDNEY/ URETER/BLADDER, 04/16/2015, 10:04. FINDINGS: Image quality: Excellent. ABDOMEN: Lung bases: Lung bases are clear. Heart size is normal. Solid organs: Liver is normal in size and enhancement. Gallbladder is within normal limits. Biliary system is non dilated. Pancreas enhances normally. Spleen is normal in size and enhancement. No adrenal nodules. Right kidney is within normal limits. There is mild left renal enlargement. Wedge-shaped regions of hypoperfusion throughout the left kidney are present. Peritoneum and bowel: Bowel loops demonstrate normal wall thickness and caliber. No free fluid or air. Normal appendix. Nodes and vessels: No retroperitoneal or mesenteric adenopathy by size criteria. Aorta and inferior vena cava are normal in size. Miscellaneous: No ventral hernias. PELVIS: Genitourinary: Bladder wall thickness is normal. 54 mm diameter left ovarian cyst is present. 12 mm cystic focus within the endometrial canal. Miscellaneous: No inguinal hernias or adenopathy. Bones: No suspicious bony lesions. No vertebral body compression fractures. IMPRESSION: 1. Left pyelonephritis. 2. Normal appendix. 3. 54 mm diameter left ovarian cyst, as well as small endometrial cystic focus. Followup ultrasound in 6 weeks is recommended to ensure resolution, and to exclude underlying malignancy. 4. Small amount of free fluid within the pelvis, within physiological limits in a menstruating female. Dictated by: Humberto Fulton M.D. on 12/04/2017 at 11:23 Approved by: Humberto Fulton M.D. on 12/04/2017 at 11:27
[2017-12-04] MEDS: HYDROMORPHONE 1 MG INJ IV (10:52)
[2017-12-04 10:58] LABS: Procalcitonin 3.54 ng/mL (<0.5)
[2017-12-04 11:29] VITALS: BP 127/72; PULSE 103; RESP 16; O2SAT 99
[2017-12-04] MEDS: CEFTRIAXONE 1 GM/50 ML FROZ.PIGGY IV (11:46)
[2017-12-04 12:00] VITALS: BP 136/84; PULSE 103; O2SAT 97
[2017-12-04 12:35] VITALS: BP 137/78; PULSE 108; RESP 14; TEMP 37.6; O2SAT 100
--- NOTE | 2017-12-04 12:58 | ED_ITS ---
HPI - Fever General Chief Complaint: Fever Stated Complaint: POSSIBLE KIDNEY INFEC History of Present Illness HPI Narrative: HPI 47-year-old female presents complaining of fever, malaise, left sided abdominal pain for approximate 2 days, notes dark urine without dysuria, history of kidney stones. Patient is concerned that she be sick if she ate, has not taken PO recently. Denies chest pain, shortness of breath. M/S/F/SocHx notable for: please see HPI; remainder reviewed with patient and in chart. ROS: Negative constitutional, eye, cardiovascular, pulmonary, GI, , MSK, skin , neurologic, psychiatric, endocrine unless noted in the HPI. Exam HR 120, BP 140/92, RR 18, T 99.9 ?F, SaO2 100% on room air; at 10:11 AM. Gen: Pleasant, non-toxic appearing, resting comfortably. HEENT: NC, AT, PEERL, EOMI. Resp: Clear to auscultation bilaterally, normal work of breathing, no accessory muscle usage. Card: Regular rate and rhythm with no murmurs, rubs, or gallops, extremities warm and well perfused. GI: mild left upper quadrant tenderness palpation, remainder of abdomen nontender to palpation throughout all quadrants, no focal tenderness at McBurney 's point, negative Velez's sign, non-distended, no rebound or guarding. : No right sided CVA tenderness to percussion, no left sided CVA tenderness to percussion. No suprapubic tenderness to palpation. MSK: No visible deformities, strength and tone WNL. Skin: Normal color with no visible lesions. Neuro: AO x 3, no facial asymmetry, vision and hearing WNL. Psych: Mood and affect appropriate. Labs / Imaging (pertinent): WBC 12.5, Hb 13.9, PLT 127, PTT/INR 1.3 Na 130, K 4.4, total bilirubin 1.3, AST 77, ALT 106, ALP 124, lipase 82, lactic 1.2, pro-calcitonin 3.54. UA - negative nitrate, 2+ bilirubin, trace leukocyte esterase, 5-10 RBCs, 1-5 WBCs, 5-10 squamous epithelial cells, no bacteria CXR: no acute process. CT Abd/Pelvis: left pyelonephritis. Normal appendix. 54 mm diameter left ovarian cyst, as well as small endometrial cystic focus. Follow-up ultrasound 6 weeks is recommended to ensure resolution, and to exclude underlined malignancy. Small amount of free fluid within the pelvis., Within physiological limits and administering female. MDM Previous chart, nursing note, and vitals reviewed. A: 47-year-old female presents complaining of fever, malaise, left sided abdominal pain for approximate 2 days, notes dark urine without dysuria, history of kidney stones. DDx: renal colic, UTI, pyelonephritis, AAA, biliary disease (colic/ cholelithiasis/cholecystitis), large bowel disease (diverticulitis/appendicitis) ,ovarian torsion, hemorrhagic cyst, ectopic . Evaluation: UA equivocal with respect to UTI/pyelonephritis, CT noting left- sided counter phrase without evidence of ureterolithiasis. Incidental findings noted and communicated to the patient verbally and in writing. Patient given 2 L hydration, patient with appropriate physiologic compensation, repeat evaluation at 12:55 PM with patient resting comfortably, borderline tachycardia , and no significant distress, patient with good urine output. Patient prescribed ciprofloxacin, risks and benefits of this medication reviewed, patient to return if developed any worsening symptoms with respect to tendinopathy's. Above evaluation without evidence of remainder of differential. Patient was notified of their elevated blood pressure and recommended to follow up with their primary care physician. As the patient is without evidence of acute end organ dysfunction no further emergent evaluation is indicated as per the 2013 [facility] clinical policy. Impression: pyelonephritis (please reference below for remainder of encounter information) Related Data Home Medications Medication Instructions Recorded Confirmed No Known Home Medications 12/04/17 12/04/17 Allergies Allergy/AdvReac Type Severity Reaction Status Date / Time No Known Drug Allergies Allergy Verified 12/04/17 09:40 [facility] Medical History Anemia (Chronic) Asthma (Chronic ~2002) Fibroids (Chronic ~2015) GERD (gastroesophageal reflux disease) (Chronic ~2016) Hay fever (Chronic ~1999) Kidney stones (Chronic ~2016) Ovarian cyst (Chronic ~2015) Shoulder pain (Chronic) Chicken pox (Resolved ~1973) Surgical History Anesthesia (Resolved) Status post endometrial ablation (~01/2016) Family History Mother Age: 73 Heart disease Hypertension Diabetes mellitus Sister Age: 51 Heart disease Hypertension Mental health problem Diabetes mellitus Sister Age: 49 Heart disease Hypertension Father Cancer Grandmother Diabetes mellitus Social History Smoking Status: Never smoker Exam Initial Vital Signs Initial Vital Signs: Vital Signs Temperature 98.7 F 12/04/17 09:36 Pulse Rate 126 H 12/04/17 09:36 Respiratory Rate 18 12/04/17 09:36 Blood Pressure 135/92 H 12/04/17 09:36 Pulse Oximetry 100 12/04/17 09:36 Course Orders Ordered: ED Orders 12/04/17 09:42 Ictotest Urine Stat Urinalysis and Microscopic Stat 12/04/17 09:50 XR chest 1V Stat 12/04/17 10:00 Complete Blood Count AUTO DIFF Stat Comprehensive Metabolic Panel Stat Lactate (Lactic Acid) Stat Lipase Stat Partial Thromboplastin Time Stat Procalcitonin Stat Prothrombin Time INR Stat 12/04/17 10:10 Blood Culture Stat 12/04/17 10:34 CT abdomen pelvis w con Stat Discontinued Medications Hydromorphone HCl (Dilaudid) 1 mg IV NOW ONE Stop: 12/04/17 10:52 Last Admin: 12/04/17 10:52 Dose: 1 mg Sodium Chloride (Normal Saline 0.9%) 1,000 mls @ 1,000 mls/hr IV BOLUS ONE Stop: 12/04/17 10:49 Last Infusion: 12/04/17 12:08 Dose: 0 mls/hr Admin: 12/04/17 10:17 Dose: 1,000 mls/hr Sodium Chloride (Normal Saline 0.9%) 1,000 mls @ 1,000 mls/hr IV BOLUS ONE Stop: 12/04/17 11:33 Last Admin: 12/04/17 12:05 Dose: 1,000 mls/hr Ceftriaxone Sodium/Dextrose (Rocephin) 1 gm in 50 mls @ 100 mls/hr IV NOW ONE Stop: 12/04/17 12:11 Last Admin: 12/04/17 11:46 Dose: 100 mls/hr Vital Signs - 8 hr 12/04/17 09:36 12/04/17 10:11 12/04/17 11:29 Temperature 98.7 F 99.9 F H Pulse Rate 126 H 120 H 103 H Respiratory Rate 18 18 16 Blood Pressure 135/92 H Blood Pressure [Right Arm] 141/92 H 127/72 H Pulse Oximetry 100 100 99 12/04/17 12:00 12/04/17 12:35 Temperature 99.6 F Pulse Rate 103 H 108 H Respiratory Rate 14 Blood Pressure Blood Pressure [Right Arm] 136/84 H 137/78 H Pulse Oximetry 97 100 MDM - Fever Lab Data Result diagrams: 12/04/17 10:00 12/04/17 10:00 Lab Results 12/04/17 12/04/17 12/04/17 Range/Units 09:42 09:42 10:00 WBC 12.5 H (4.5-11.0) X10^3/uL RBC 4.65 (4.0-5.2) X10^6/uL Hgb 13.9 (12.0-16.0) g/dL Hct 40.6 (36-46) % MCV 87.4 (80-100) fL MCH 29.9 (26-34) PG MCHC 34.2 (30-36) % RDW 14.6 (11.6-14.8) % Plt Count 127 L (150-400) X10^3/uL Neut % (Auto) 84.8 H (50-75) % Lymph % (Auto) 7.9 L (25-40) % [place] % (Auto) 6.9 (3-14) % Eos % (Auto) 0.1 L (2-4) % Baso % (Auto) 0.3 (0-2) % Neut # (Auto) 42163 H (9957-9957) /uL PT (10.1-12.7) SECONDS INR (0.9-1.3) APTT (26.4-36.2) SECONDS Sodium (137-145) mmol/L Potassium (3.4-5.1) mmol/L Chloride (98-107) mmol/L Carbon Dioxide (22-32) mmol/L BUN (7-17) mg/dL Creatinine (0.52-1.04) mg/dL Estimated GFR (>60) mL/min BUN/Creatinine Ratio (6-22) Glucose (70-100) mg/dL Lactate (0.7-2.1) mmol/L Calcium (8.4-10.2) mg/dL Total Bilirubin (0.2-1.3) mg/dL AST (14-36) IU/L ALT (9-52) IU/L Alkaline Phosphatase (38-126) U/L Total Protein (6.3-8.2) g/dL Albumin (3.5-5.0) g/dL Globulin (1.7-4.1) g/dL Albumin/Globulin Ratio (1.0-2.8) Lipase (23-300) U/L Procalcitonin (<0.5) ng/mL Urine Color [place] Urine Appearance Sl cloudy Urine pH 5.5 (4.5-8.0) Ur Specific [place] 1.020 (1.000-1.035) Urine Protein 3+ H (Negative) Urine Glucose (UA) Trace (Normal) g/dL Urine Ketones 1+ H (NEGATIVE) Urine Occult Blood 2+ H (Negative) Urine Nitrate Negative (Negative) Urine Bilirubin 2+ H (NEGATIVE) Urine Ictotest Positive H (Negative) Urine Urobilinogen 1.0 (0.2) E.U./dL Ur Leukocyte Esterase Trace H (NEGATIVE) Urine RBC 5-10/hpf H (0-5/HPF) Urine WBC 1-5/hpf (0-5/HPF) Ur Squamous Epith Cells 5-10 /hpf H Urine Bacteria None seen (None) Granular Casts 0-1/lpf (None) Ur Culture Indicated? Cult not indicated Micro UA Comment Not Reportable 12/04/17 12/04/17 12/04/17 Range/Units 10:00 10:00 10:00 WBC (4.5-11.0) X10^3/uL RBC (4.0-5.2) X10^6/uL Hgb (12.0-16.0) g/dL Hct (36-46) % MCV (80-100) fL MCH (26-34) PG MCHC (30-36) % RDW (11.6-14.8) % Plt Count (150-400) X10^3/uL Neut % (Auto) (50-75) % Lymph % (Auto) (25-40) % [place] % (Auto) (3-14) % Eos % (Auto) (2-4) % Baso % (Auto) (0-2) % Neut # (Auto) (1693-6961) /uL PT 14.6 H (10.1-12.7) SECONDS INR 1.3 (0.9-1.3) APTT 28 (26.4-36.2) SECONDS Sodium 130 L (137-145) mmol/L Potassium 4.4 (3.4-5.1) mmol/L Chloride 96 L (98-107) mmol/L Carbon Dioxide 25 (22-32) mmol/L BUN 14 (7-17) mg/dL Creatinine 1.00 (0.52-1.04) mg/dL Estimated GFR 59.2 L (>60) mL/min BUN/Creatinine Ratio 14.0 (6-22) Glucose 120 H (70-100) mg/dL Lactate (0.7-2.1) mmol/L Calcium 8.3 L (8.4-10.2) mg/dL Total Bilirubin 1.3 (0.2-1.3) mg/dL AST 77 H (14-36) IU/L ALT 106 H (9-52) IU/L Alkaline Phosphatase 124 (38-126) U/L Total Protein 7.3 (6.3-8.2) g/dL Albumin 3.7 (3.5-5.0) g/dL Globulin 3.6 (1.7-4.1) g/dL Albumin/Globulin Ratio 1.0 (1.0-2.8) Lipase 82 (23-300) U/L Procalcitonin 3.54 H (<0.5) ng/mL Urine Color Urine Appearance Urine pH (4.5-8.0) Ur Specific [place] (1.000-1.035) Urine Protein (Negative) Urine Glucose (UA) (Normal) g/dL Urine Ketones (NEGATIVE) Urine Occult Blood (Negative) Urine Nitrate (Negative) Urine Bilirubin (NEGATIVE) Urine Ictotest (Negative) Urine Urobilinogen (0.2) E.U./dL Ur Leukocyte Esterase (NEGATIVE) Urine RBC (0-5/HPF) Urine WBC (0-5/HPF) Ur Squamous Epith Cells Urine Bacteria (None) Granular Casts (None) Ur Culture Indicated? Micro UA Comment 12/04/17 Range/Units 10:00 WBC (4.5-11.0) X10^3/uL RBC (4.0-5.2) X10^6/uL Hgb (12.0-16.0) g/dL Hct (36-46) % MCV (80-100) fL MCH (26-34) PG MCHC (30-36) % RDW (11.6-14.8) % Plt Count (150-400) X10^3/uL Neut % (Auto) (50-75) % Lymph % (Auto) (25-40) % [place] % (Auto) (3-14) % Eos % (Auto) (2-4) % Baso % (Auto) (0-2) % Neut # (Auto) (4218-7398) /uL PT (10.1-12.7) SECONDS INR (0.9-1.3) APTT (26.4-36.2) SECONDS Sodium (137-145) mmol/L Potassium (3.4-5.1) mmol/L Chloride (98-107) mmol/L Carbon Dioxide (22-32) mmol/L BUN (7-17) mg/dL Creatinine (0.52-1.04) mg/dL Estimated GFR (>60) mL/min BUN/Creatinine Ratio (6-22) Glucose (70-100) mg/dL Lactate 1.2 (0.7-2.1) mmol/L Calcium (8.4-10.2) mg/dL Total Bilirubin (0.2-1.3) mg/dL AST (14-36) IU/L ALT (9-52) IU/L Alkaline Phosphatase (38-126) U/L Total Protein (6.3-8.2) g/dL Albumin (3.5-5.0) g/dL Globulin (1.7-4.1) g/dL Albumin/Globulin Ratio (1.0-2.8) Lipase (23-300) U/L Procalcitonin (<0.5) ng/mL Urine Color Urine Appearance Urine pH (4.5-8.0) Ur Specific [place] (1.000-1.035) Urine Protein (Negative) Urine Glucose (UA) (Normal) g/dL Urine Ketones (NEGATIVE) Urine Occult Blood (Negative) Urine Nitrate (Negative) Urine Bilirubin (NEGATIVE) Urine Ictotest (Negative) Urine Urobilinogen (0.2) E.U./dL Ur Leukocyte Esterase (NEGATIVE) Urine RBC (0-5/HPF) Urine WBC (0-5/HPF) Ur Squamous Epith Cells Urine Bacteria (None) Granular Casts (None) Ur Culture Indicated? Micro UA Comment Discharge Plan Departure Patient Disposition: Home Prescriptions: No Action No Known Home Medications RF: 0
[2017-12-04 13:23] LABS: Pregnancy Test Serum,Qual Negative (Negative)
[2017-12-04] MEDS: KETOROLAC 60 MG/2 ML VIAL 15 MG IV (13:41)
[2017-12-04 13:42] VITALS: BP 129/87; PULSE 98; RESP 14; TEMP 37.7; O2SAT 98
[2017-12-05 06:38] LABS: Enterococcus species Not Detected (Not Detect); Listeria monocytogenes Not Detected (Not Detect)
[2017-12-05 06:39] LABS: Acinetobacter baumannii Not Detected (Not Detect); Candida albicans Not Detected (Not Detect); Candida glabrata Not Detected (Not Detect); Candida krusei Not Detected (Not Detect); Candida parapsilosis Not Detected (Not Detect); Candida tropicalis Not Detected (Not Detect); Enterobacter cloacae complex Not Detected (Not Detect); Enterobacteriaceae species Detected (Not Detect); Haemophilus influenzae Not Detected (Not Detect); KPC (carbapenem-resist gene) Not Detected (Not Detect); Neisseria meningitidis Not Detected (Not Detect); Proteus species Not Detected (Not Detect); Pseudomonas aeruginosa Not Detected (Not Detect); Serratia marcescens Not Detected (Not Detect); Staphylococcus species Not Detected (Not Detect); Streptococcus agalactiae (Gr B Not Detected (Not Detect); Streptococcus pneumonia Not Detected (Not Detect); Streptococcus pyogenes (Gr A) Not Detected (Not Detect); Streptococcus species Not Detected (Not Detect)
[2017-12-05 06:44] LABS: E. coli Detected (Not Detect)
== END 2017-12-04 13:53 | disposition home or self-care (01) ==
PROVIDERS: Emergency Provider Emergency Medicine; PCP Family Medicine
DX: N12 Tubulo-interstitial nephritis, not specified as acute or chronic (principal)
CPT/HCPCS: 36415; 36591; 71045; 74177; 80053; 81001; 83605; 83690; 84145; 84703; 85025; 85610; 85730; 87040; 87077; 87150; 87186; 87205; 96361; 96365; 96375; 99284; 99285; J1170; J1885; Q9967

== ENCOUNTER 2017-12-05 14:44 | Emergency (ER) | payer OTHER, SELFPAY ==
[2017-12-05 14:50] VITALS: BP 141/97; PULSE 104; RESP 18; TEMP 36.3; O2SAT 99; BMI 31.1
[2017-12-05] MEDS: SODIUM CHLORIDE 0.9% 1,000 ML 1000 ML IV (15:37)
[2017-12-05 15:39] LABS: Add Manual Diff / Slide Review NO; Basophils Percent Auto 0.5 % (0-2); Eosinophils Percent Auto 0.9 % (2-4); Hematocrit 39.1 % (36-46); Hemoglobin 13.4 g/dL (12.0-16.0); Lymphocytes Percent Auto 12.5 % (25-40); Mean Corpuscular HGB Conc 34.1 % (30-36); Mean Corpuscular Hemoglobin 29.8 PG (26-34); Mean Corpuscular Volume 87.4 fL (80-100); Monocytes Percent Auto 8.8 % (3-14); Neutrophils Absolute Auto 5100 /uL (3000-5900); Neutrophils Percent Auto 77.3 % (50-75); Platelet Count 139 X10^3/uL (150-400); Red Blood Cell Count 4.48 X10^6/uL (4.0-5.2); Red Cell Distribution Width 14.9 % (11.6-14.8); White Blood Cell Count 6.6 X10^3/uL (4.5-11.0)
--- NOTE | 2017-12-05 15:43 | PC.NURSE ---
Seen yesterday, dx w/ pylonephritis. Placed on Cipro after IV abx in ED. Pt taking po fluids well. Pt has been taking ibuprofen and tylenol around the clock for fever and pain. Continues to have pain left flank. Appears flushed and tired. States she feels better than yesterday but 'not well'. Encouraged to call for needs.
[2017-12-05 15:52] LABS: Prothrombin Time 11.3 SECONDS (10.1-12.7)
[2017-12-05 15:53] LABS: Bacteria Urine None Seen
[2017-12-05 15:55] LABS: PTT Partial Thromboplastin Tim 26 SECONDS (26.4-36.2)
[2017-12-05 15:59] LABS: Alanine Aminotransferase 118 IU/L (9-52); Albumin 3.2 g/dL (3.5-5.0); Alkaline Phosphatase 175 U/L (38-126); Aspartate Aminotransferase 128 IU/L (14-36); BUN Creatinine Ratio 13.8 (6-22); Bilirubin Total 0.9 mg/dL (0.2-1.3); Blood Urea Nitrogen 11 mg/dL (7-17); Calcium 8.6 mg/dL (8.4-10.2); Carbon Dioxide 30 mmol/L (22-32); Chloride 99 mmol/L (98-107); Estimated Glomerular Filt Rate > 60.0 mL/min (>60); Globulin 3.2 g/dL (1.7-4.1); Glucose 171 mg/dL (70-100); HEMOLYSIS < 15 (0-50); Lipase 248 U/L (23-300); Sodium 136 mmol/L (137-145); Total Protein 6.4 g/dL (6.3-8.2)
[2017-12-05 16:00] LABS: Lactate (Lactic Acid) 1.3 mmol/L (0.7-2.1)
[2017-12-05 16:08] LABS: Appearance Urine UA CLEAR; Bilirubin Urine UA NEGATIVE (NEGATIVE); Color Urine UA YELLOW; Glucose Urine UA 1+ g/dL (Normal); Ketones Urine UA TRACE (NEGATIVE); Leukocyte Esterase Urine UA TRACE (NEGATIVE); Nitrite Urine UA Negative (Negative); Occult Blood Urine UA TRACE-INTACT (Negative); Protein Urine UA 1+ (Negative); Specific Gravity Urine UA <=1.005 (1.000-1.035)
[2017-12-05] MEDS: ONDANSETRON 4 MG/2 ML INJ IV ×2 (16:15→18:44)
[2017-12-05] MEDS: MORPHINE 4 MG/ML INJ IV (16:15)
[2017-12-05 16:19] VITALS: BP 144/90; PULSE 99; RESP 20; TEMP 37.2; O2SAT 95
[2017-12-05 16:19] LABS: Culture Indicated Urine Specimen Cultured; RBC Urine 0-1/HPF (0-5/HPF); Squamous Epithelial Cell Urine 0-1 /HPF; WBC Urine 1-5/HPF (0-5/HPF)
[2017-12-05 16:20] LABS: Procalcitonin 1.62 ng/mL (<0.5)
[2017-12-05 17:49] VITALS: BP 152/99; PULSE 98; RESP 20; TEMP 37.7
--- NOTE | 2017-12-05 18:19 | ED.FEVER ---
HPI - Fever General Chief Complaint: Fever Stated Complaint: + blood cultures, pylonephritis Time Seen by Provider: 12/05/17 18:02 Source: patient Mode of arrival: ambulatory Limitations: no limitations History of Present Illness HPI Narrative: Patient returns to the emergency department for a recheck after she was seen and evaluated yesterday for left flank pain with fever and chills. She was diagnosed with pyelonephritis and placed on ciprofloxacin. She admittedly feels much better today and denies any ongoing fever, chills nor nausea. She states her pain is much better. She was called at home by the daytime nursing staff whom noted Gram stain suggesting gram-negative rods. MD complaint: weakness Onset (ago): day(s) Temperature Source: oral Associated symptoms: denies other symptoms Relieving factors: nothing Exacerbating factors: nothing Treatments prior to arrival fever: acetaminophen and antibiotics Related Data Previous Rx's Medication Instructions Recorded ciprofloxacin HCl 500 mg PO BID #20 tab 12/04/17 hydrocodone-acetaminophen 1 tab PO Q4-6H PRN #14 tab 12/05/17 Allergies Allergy/AdvReac Type Severity Reaction Status Date / Time No Known Drug Allergies Allergy Verified 12/05/17 14:54 Review of Systems Review of Systems All systems reviewed & are unremarkable except as noted in HPI and below Constitutional Denies chills, Denies fever(s), Denies lethargy and Denies weakness Eyes Denies change in vision, Denies eye discharge, Denies irritation and Denies loss of vision ENT Ears, Nose, Mouth, and Throat: Denies change in voice, Denies neck pain and Denies sore throat Cardiovascular Denies chest pain, Denies irregular heart rhythm, Denies lightheadedness, Denies palpitations, Denies dyspnea, Denies dyspnea on exertion and Denies orthopnea Respiratory Denies cough, Denies dyspnea, Denies dyspnea on exertion and Denies wheezing Gastrointestinal Gastrointestinal: Denies abdominal pain, Denies change in bowel habits, Denies diarrhea, Denies nausea and Denies vomiting Genitourinary Denies hematuria, Denies flank pain, Denies urinary incontinence and Denies urinary urgency Musculoskeletal Reports back pain and Denies neck pain Integumentary/Breasts Denies pruritus, Denies erythema, Denies rash and Denies wounds Neurologic Denies confusion, Denies loss of vision and Denies weakness Psychiatric Denies anxiety, Denies confusion, Denies depression, Denies homicidal ideation and Denies suicidal ideation Endocrine Denies palpitations Hematologic/Lymphatic Denies easy bruising Allergic/Immunologic Denies wheezing [facility] Medical History Anemia (Chronic) Asthma (Chronic ~2002) Fibroids (Chronic ~2015) GERD (gastroesophageal reflux disease) (Chronic ~2016) Hay fever (Chronic ~1999) Kidney stones (Chronic ~2016) Ovarian cyst (Chronic ~2015) Shoulder pain (Chronic) Chicken pox (Resolved ~1973) Surgical History Anesthesia (Resolved) Status post endometrial ablation (~01/2016) Family History Mother Age: 73 Heart disease Hypertension Diabetes mellitus Sister Age: 51 Heart disease Hypertension Mental health problem Diabetes mellitus Sister Age: 49 Heart disease Hypertension Father Cancer Grandmother Diabetes mellitus Social History Smoking Status: Never smoker Exam Initial Vital Signs Initial Vital Signs: Vital Signs Temperature 97.4 F L 12/05/17 14:50 Pulse Rate 104 H 12/05/17 14:50 Respiratory Rate 18 12/05/17 14:50 Blood Pressure 141/97 H 12/05/17 14:50 Pulse Oximetry 99 12/05/17 14:50 Const General: cooperative and well developed Nutritional Appearance: well nourished Orientation: alert, awake, oriented x3 and not confused [facility] Head: normocephalic and atraumatic Ears: external ears normal and TM's normal bilaterally Nose: external nose normal and No nasal discharge Face and sinus: sinuses nontender, face symmetric, no sinus tenderness and No dry mucous membranes Mouth: oral mucosae normal and moist mucous membranes Teeth and gingiva: dentition normal Throat: tonsils normal and uvula midline Eyes General: appearance normal, both eyes and all related structures Eyelids: eyelids normal Conjunctivae: conjunctivae normal Sclera: sclerae normal Pupils: PERRL EOM: EOM intact bilaterally Neck Neck: normal visual inspection, trachea midline, No lymphadenopathy, No midline deformity and No JVD Lymphatic: No lymphedema Chest Chest: normal inspection of the chest Resp Effort & Inspection: normal respiratory effort, able to speak in complete sentences, no respiratory distress and no use of accessory muscles Auscultation: clear to auscultation bilaterally, no rales, no rhonchi and no wheezes Cardio Rate: regular rate Rhythm: regular rhythm Heart Sounds: no click, no gallops, no murmurs and no rubs Pulses: normal peripheral pulses GI Inspection: non-distended Palpation: soft, no hepatosplenomegaly, No guarding, No pulsatile mass and No tender Auscultation: normal bowel sounds Back/Spine/Pelvis Back: No CVA tenderness Cervical Spine: cervical ROM normal and No pain with cervical ROM Thoracic/Lumbar Spine: thoracic and lumbar spine normal to inspection Skin General: no rashes or lesions noted, No jaundice and No petechiae Neuro General: alert, oriented x3, gait normal and no focal motor deficits Speech: speech normal Extrem General: full ROM, no clubbing, cyanosis or edema, no pedal edema and no calf tenderness Psych Appearance: well kempt Mental Status: mental status grossly normal Attitude: cooperative Thought Content: normal and suicidality Judgment: judgment good Course Orders Ordered: Discontinued Medications Hydrocodone Bitart/Acetaminophen (Vicodin Prepack) 1 bottle MISC SEEINSTR ONE Stop: 12/05/17 20:07 Last Admin: 12/05/17 20:44 Dose: 1 bottle Hydromorphone HCl (Dilaudid) 1 mg IV NOW ONE Stop: 12/05/17 18:38 Last Admin: 12/05/17 18:44 Dose: 1 mg Sodium Chloride (Normal Saline 0.9%) 1,000 mls @ 1,000 mls/hr IV BOLUS ONE Stop: 12/05/17 16:09 Last Infusion: 12/05/17 16:48 Dose: 0 mls/hr Admin: 12/05/17 15:37 Dose: 1,000 mls/hr Lactated Ringer's (Lactated Ringers) 1,000 mls @ 1,000 mls/hr IV BOLUS ONE Stop: 12/05/17 19:18 Last Infusion: 12/05/17 20:26 Dose: 0 mls/hr Admin: 12/05/17 18:25 Dose: 1,000 mls/hr Morphine Sulfate (Morphine) 4 mg IV NOW ONE Stop: 12/05/17 16:13 Last Admin: 12/05/17 16:15 Dose: 4 mg Ondansetron HCl (Zofran) 4 mg IV NOW ONE Stop: 12/05/17 16:13 Last Admin: 12/05/17 16:15 Dose: 4 mg Ondansetron HCl (Zofran) 4 mg IV NOW ONE Stop: 12/05/17 18:38 Last Admin: 12/05/17 18:44 Dose: 4 mg Ondansetron HCl (Zofran Odt Prepack) 1 bottle MISC SEEINSTR ONE Stop: 12/05/17 20:44 Last Admin: 12/05/17 20:44 Dose: 1 bottle Potassium Chloride (Potassium Chloride) 40 meq PO NOW ONE Stop: 12/05/17 18:20 Last Admin: 12/05/17 18:42 Dose: 40 meq Vital Signs - 8 hr 12/05/17 19:41 12/05/17 19:52 Temperature 99.0 F Pulse Rate 98 H 85 Respiratory Rate 20 15 Blood Pressure [Right Arm] 133/84 H Pulse Oximetry 99 98 MDM - Fever Lab Data Result diagrams: 12/05/17 15:28 12/05/17 15:28 Lab Results 12/05/17 12/05/17 12/05/17 Range/Units 15:28 15:28 15:28 WBC 6.6 (4.5-11.0) X10^3/uL RBC 4.48 (4.0-5.2) X10^6/uL Hgb 13.4 (12.0-16.0) g/dL Hct 39.1 (36-46) % MCV 87.4 (80-100) fL MCH 29.8 (26-34) PG MCHC 34.1 (30-36) % RDW 14.9 H (11.6-14.8) % Plt Count 139 L (150-400) X10^3/uL Neut % (Auto) 77.3 H (50-75) % Lymph % (Auto) 12.5 L (25-40) % Jack % (Auto) 8.8 (3-14) % Eos % (Auto) 0.9 L (2-4) % Baso % (Auto) 0.5 (0-2) % Neut # (Auto) 5100 (8706-9362) /uL PT 11.3 (10.1-12.7) SECONDS INR 1.0 (0.9-1.3) APTT 26 L D (26.4-36.2) SECONDS Sodium (137-145) mmol/L Potassium (3.4-5.1) mmol/L Chloride (98-107) mmol/L Carbon Dioxide (22-32) mmol/L BUN (7-17) mg/dL Creatinine (0.52-1.04) mg/dL Estimated GFR (>60) mL/min BUN/Creatinine Ratio (6-22) Glucose (70-100) mg/dL Lactate (0.7-2.1) mmol/L Calcium (8.4-10.2) mg/dL Total Bilirubin (0.2-1.3) mg/dL AST (14-36) IU/L ALT (9-52) IU/L Alkaline Phosphatase (38-126) U/L Total Protein (6.3-8.2) g/dL Albumin (3.5-5.0) g/dL Globulin (1.7-4.1) g/dL Albumin/Globulin Ratio (1.0-2.8) Lipase (23-300) U/L Procalcitonin 1.62 H (<0.5) ng/mL Urine Color Urine Appearance Urine pH (4.5-8.0) Ur Specific [place] (1.000-1.035) Urine Protein (Negative) Urine Glucose (UA) (Normal) g/dL Urine Ketones (NEGATIVE) Urine Occult Blood (Negative) Urine Nitrate (Negative) Urine Bilirubin (NEGATIVE) Urine Urobilinogen (0.2) E.U./dL Ur Leukocyte Esterase (NEGATIVE) Urine RBC (0-5/HPF) Urine WBC (0-5/HPF) Ur Squamous Epith Cells Urine Bacteria (None) Ur Culture Indicated? Micro UA Comment 12/05/17 12/05/17 12/05/17 Range/Units 15:28 15:28 15:36 WBC (4.5-11.0) X10^3/uL RBC (4.0-5.2) X10^6/uL Hgb (12.0-16.0) g/dL Hct (36-46) % MCV (80-100) fL MCH (26-34) PG MCHC (30-36) % RDW (11.6-14.8) % Plt Count (150-400) X10^3/uL Neut % (Auto) (50-75) % Lymph % (Auto) (25-40) % Jack % (Auto) (3-14) % Eos % (Auto) (2-4) % Baso % (Auto) (0-2) % Neut # (Auto) (0303-5268) /uL PT (10.1-12.7) SECONDS INR (0.9-1.3) APTT (26.4-36.2) SECONDS Sodium 136 L (137-145) mmol/L Potassium 3.0 L D (3.4-5.1) mmol/L Chloride 99 (98-107) mmol/L Carbon Dioxide 30 (22-32) mmol/L BUN 11 (7-17) mg/dL Creatinine 0.80 (0.52-1.04) mg/dL Estimated GFR > 60.0 (>60) mL/min BUN/Creatinine Ratio 13.8 (6-22) Glucose 171 H (70-100) mg/dL Lactate 1.3 (0.7-2.1) mmol/L Calcium 8.6 (8.4-10.2) mg/dL Total Bilirubin 0.9 (0.2-1.3) mg/dL AST 128 H (14-36) IU/L ALT 118 H (9-52) IU/L Alkaline Phosphatase 175 H (38-126) U/L Total Protein 6.4 (6.3-8.2) g/dL Albumin 3.2 L (3.5-5.0) g/dL Globulin 3.2 (1.7-4.1) g/dL Albumin/Globulin Ratio 1.0 (1.0-2.8) Lipase 248 D (23-300) U/L Procalcitonin (<0.5) ng/mL Urine Color Yellow Urine Appearance Clear Urine pH 7.0 (4.5-8.0) Ur Specific [place] <=1.005 (1.000-1.035) Urine Protein 1+ H (Negative) Urine Glucose (UA) 1+ (Normal) g/dL Urine Ketones Trace H (NEGATIVE) Urine Occult Blood Trace-intact (Negative) Urine Nitrate Negative (Negative) Urine Bilirubin Negative (NEGATIVE) Urine Urobilinogen 4.0 H (0.2) E.U./dL Ur Leukocyte Esterase Trace H (NEGATIVE) Urine RBC 0-1/hpf (0-5/HPF) Urine WBC 1-5/hpf (0-5/HPF) Ur Squamous Epith Cells 0-1 /hpf Urine Bacteria None seen (None) Ur Culture Indicated? Specimen cultured Micro UA Comment Not Reportable MDM Narrative Medical decision making narrative: extensive bedside discussion regarding how to proceed. Patient admittedly feels much better and labs have also approved. Gram Stain notes G- rods. Cultures and GEO pending. Discharge Plan Departure Patient Disposition: Home Clinical Impression: Pyelonephritis, Bacteremia Discharge Date/Time: 12/05/17 20:46 Interventions: ED Discharge Assessment Last Done: 12/05/17 20:45 Instructions: DI for Kidney Infection Activity Restrictions/Additional Instructions: *You have been diagnosed with [ pyelonephritis with positive cultures ] *What to do: *Take medications as directed: Including the antibiotic that was previously prescribed as well as the new pain medication. Keep in mind that the pain medicine I gave you has Tylenol in it so did not take extra Tylenol, ibuprofen/Motrin is okay *Follow up with your primary care provider in 2-3 days, call for an appointment. Let them know you were seen in the Emergency Department and that we ask that you be seen in follow up *Return to ER if you should have any new, worsening or concerning symptoms, such as [ increasing fever, shaking chills, vomiting, other bothersome symptoms] Prescriptions: New hydrocodone-acetaminophen 5-325 mg tablet 1 tab PO Q4-6H PRN (Reason: pain) Qty: 14 RF: 0 No Action ciprofloxacin HCl 500 mg tablet 500 mg PO BID Qty: 20 RF: 0 Referrals: Sagar Martin MD [Primary Care Provider] - Stand Alone Forms: Work/School Restrictions
[2017-12-05] MEDS: LACTATED RINGERS 1,000 ML 1000 ML IV (18:25)
[2017-12-05] MEDS: POTASSIUM CHLORIDE 20 MEQ/15 ML UDC 40 MEQ PO (18:42)
[2017-12-05] MEDS: HYDROMORPHONE 1 MG INJ IV (18:44)
[2017-12-05 19:41] VITALS: PULSE 98; RESP 20; TEMP 37.2; O2SAT 99
[2017-12-05 19:52] VITALS: BP 133/84; PULSE 85; RESP 15; O2SAT 98
[2017-12-05] MEDS: HYDROCODONE/ACET 5/325 PREPACK 1 BOTTLE MISC (20:44)
[2017-12-05] MEDS: ONDANSETRON 4 MG ODT PREPACK 1 BOTTLE MISC (20:44)
--- NOTE | 2017-12-05 20:51 | PC.NURSE ---
patients prepack zofran RX:[id number], prepack for norco RX: [id number]
== END 2017-12-05 20:46 | disposition home or self-care (01) ==
PROVIDERS: Emergency Medicine; Emergency Provider Emergency Medicine; Family Provider Family Medicine; PCP Family Medicine
DX: N12 Tubulo-interstitial nephritis, not specified as acute or chronic (principal); R78.81 Bacteremia
CPT/HCPCS: 36591; 80053; 81001; 83605; 83690; 84145; 85025; 85610; 85730; 87086; 96361; 96374; 96375; 96376; 99285; J1170; J2270; J2405

== ENCOUNTER → 2017-12-15 07:12 | Outpatient (CLI) | payer OTHER, SELFPAY ==
[2017-12-15 07:25] LABS: Bacteria Urine None Seen; RBC Urine None Seen (0-5/HPF); WBC Urine None Seen (0-5/HPF)
[2017-12-15 08:11] LABS: Appearance Urine UA CLEAR; Bilirubin Urine UA NEGATIVE (NEGATIVE); Color Urine UA YELLOW; Glucose Urine UA NEGATIVE (Normal); Ketones Urine UA NEGATIVE (NEGATIVE); Leukocyte Esterase Urine UA NEGATIVE (NEGATIVE); Nitrite Urine UA Negative (Negative); Occult Blood Urine UA NEGATIVE (Negative); Protein Urine UA NEGATIVE (Negative); Specific Gravity Urine UA 1.015 (1.000-1.035); Urobilinogen Urine UA 0.2 E.U./dL (0.2)
[2017-12-15 08:14] LABS: Add Manual Diff / Slide Review NO; Basophils Percent Auto 0.6 % (0-2); Eosinophils Percent Auto 1.2 % (2-4); Hematocrit 39.3 % (36-46); Hemoglobin 13.2 g/dL (12.0-16.0); Lymphocytes Percent Auto 26.5 % (25-40); Mean Corpuscular HGB Conc 33.6 % (30-36); Mean Corpuscular Hemoglobin 29.3 PG (26-34); Mean Corpuscular Volume 87.1 fL (80-100); Monocytes Percent Auto 5.7 % (3-14); Neutrophils Absolute Auto 7300 /uL (3000-5900); Platelet Count 436 X10^3/uL (150-400); Red Blood Cell Count 4.51 X10^6/uL (4.0-5.2); Red Cell Distribution Width 14.7 % (11.6-14.8); White Blood Cell Count 11.1 X10^3/uL (4.5-11.0)
[2017-12-15 08:28] LABS: Culture Indicated Urine Cult Not Indicated; Urine Comments Microscopic Normal
[2017-12-15 08:39] LABS: Alanine Aminotransferase 31 IU/L (9-52); Albumin 3.9 g/dL (3.5-5.0); Alkaline Phosphatase 123 U/L (38-126); Aspartate Aminotransferase 26 IU/L (14-36); BUN Creatinine Ratio 15.7 (6-22); Bilirubin Total 0.6 mg/dL (0.2-1.3); Blood Urea Nitrogen 11 mg/dL (7-17); Carbon Dioxide 30 mmol/L (22-32); Chloride 104 mmol/L (98-107); Cholesterol 149 mg/dL (140-199); Estimated Glomerular Filt Rate > 60.0 mL/min (>60); Globulin 3.9 g/dL (1.7-4.1); Glucose 117 mg/dL (70-100); HDL Cholesterol 30 mg/dL (40-60); HEMOLYSIS < 15 (0-50); LDL Cholesterol Calculated 85 mg/dL (<100); Sodium 144 mmol/L (137-145); Total Protein 7.8 g/dL (6.3-8.2); Triglycerides 170 mg/dL (35-150)
[2017-12-15 08:45] LABS: Microalbumi Creatinin Ratio Ur 37.5 ug/mg CR (<30); Microalbumin Urine Random 3.3 mg/dL (0-1.6)
[2017-12-15 09:09] LABS: TSH w/ Reflex to FT4 0.75 uIU/mL (0.47-4.68)
== END ==
PROVIDERS: Family Provider Family Medicine; PCP Family Medicine; Visit Provider Nurse Practitioner Family
DX: N12 Tubulo-interstitial nephritis, not specified as acute or chronic (principal); R73.9 Hyperglycemia, unspecified; E87.6 Hypokalemia; N20.0 Calculus of kidney
CPT/HCPCS: 36415; 80053; 80061; 81001; 82043; 82570; 83036; 84443; 85025

== ENCOUNTER → 2018-02-21 13:00 | Outpatient (CLI) | payer OTHER, SELFPAY | PROVIDERS: Family Provider Family Medicine; PCP Family Medicine | DX: Z23 Encounter for immunization (principal) | CPT/HCPCS: 90471; 90686 ==

== ENCOUNTER 2018-05-20 14:30 | Outpatient (RCR) | payer OTHER, SELFPAY ==
--- NOTE | 2018-01-26 15:15 | PT.OIE ---
Current Diagnoses Muscle weakness (generalized) (01/26/18) Achilles tendinitis, right leg (01/26/18) Achilles tendinitis, left leg (01/26/18) Past Medical History (Last Reviewed 12/06/17 @ 02:48 by Portillo Berkowitz DO) Anemia (Chronic) Asthma (Chronic ~2002) Fibroids (Chronic ~2015) GERD (gastroesophageal reflux disease) (Chronic ~2016) Hay fever (Chronic ~1999) Kidney stones (Chronic ~2016) Ovarian cyst (Chronic ~2015) Shoulder pain (Chronic) Chicken pox (Resolved ~1973) Past Surgical History (Last Reviewed 12/06/17 @ 02:48 by Portillo Berkowitz DO) Anesthesia (Resolved) Status post endometrial ablation (~01/2016) Provider Visit Care Team Role Provider Type Sagar Martin MD Family Provider Physician Primary Care Provider Specialty: [facility] Practice Address: [address] [place] [address] Email: [email or web address] Adrianne Prince DNP, ANP, PARCEL WRAPPER-C Attending Provider Advanced [employer] Specialty: [facility] Address: [address] [place] [address], [facility] Email: Physical Therapy Initial Evaluation PT-OP-A Visit Information Start: 01/26/18 15:58 Freq: Status: Active Protocol: Document 01/26/18 15:15 RCC (Rec: 01/30/18 13:02 [facility] [email or web address]) Out-Patient Physical Therapy Visit Information Visit Information Visit Type Initial Evaluation Visit Start Time 14:34 Visit Stop Time 15:15 Total Visit Minutes 41 Visit Number 04/30 Number of MEDICAL CLINIC MANAGER Visits 0 Evaluation Information Evaluation Date 01/26/18 PT-OP-B Current Condition Start: 01/26/18 15:58 Freq: Status: Active Protocol: Document 01/26/18 15:15 RCC (Rec: 01/30/18 13:02 RCC [email or web address]) Current Condition History of Current Condition Onset Date Dec 2017 Current Complaints B heel and calf pain, tightness History of Current Condition Pt is a 47 y/o female presenting to physical therapy with a c/o bilateral calf and achilles pain and tension. Pt was ill on December 05, 2017 and states that she was possibly septic. She was placed on antibiotics. She took antibiotics for 10 days. After her antibiotic treatment , she had increased pain in bilateral calf and posterior knee. Her CHAIRPERSON ANESTHESIOLOGY noted that sometimes the antibiotics she was on can cause tendon and tissue issues, which she believes in the cause of this pain. Pain is limiting her ability to walk for exercise as well as going up/down a flight of stairs. Treatment Goals Patient/Caregiver Goals decrease pain, improve mobility Prior Functional Status Baseline Function- Gait community ambulation without device Baseline Function- Work/School no limitations Baseline Function- Recreation/Hobbies walking outdoors Current Functional Impairments (Reported) Functional Limitations- Recreation/ uanble to walk outdoors for Hobbies exercise PT-OP-C Subjective Start: 01/26/18 15:58 Freq: Status: Active Protocol: Document 01/26/18 15:15 RCC (Rec: 01/30/18 13:02 [facility] [email or web address]) Patient Questionnaires Lower Extremity Functional Scale LEFS Score 62 OP-PT Pain Assessment Location bilateral achilles and calf Intensity 2 Scale Used Numeric (1 - 10) PT-OP-F Manual Assessment Start: 01/26/18 15:58 Freq: Status: Active Protocol: Document 01/26/18 15:15 RCC (Rec: 01/30/18 13:02 [facility] [email or web address]) Manual Assessments Soft Tissue Assessment Soft Tissue Mobility Assessment moderate tension L gastoc/ soleus, mild R gastroc/soleus PT-OP-G Mobility & Gait Start: 01/26/18 15:58 Freq: Status: Active Protocol: Document 01/26/18 15:15 RCC (Rec: 01/30/18 13:02 [facility] [email or web address]) OP Gait Assessment Assistive Devices Assistive Device None Comments Gait Comments decreased push off bilaterally , slightly antalgic. Stair Climbing Evaluation Comments Stair Climbing Comments step through, mildly antalgic ascend/descend. PT-OP-H Neuro Start: 01/26/18 15:58 Freq: Status: Active Protocol: Document 01/26/18 15:15 RCC (Rec: 01/30/18 13:02 [facility] [email or web address]) Sensation Evaluation Gross Sensation Gross Sensation WNL Deep Tendon Reflex & Clonus Assessment Deep Tendon Reflex Bilateral Achilles Deep Tendon Reflex 2+ Normal Bilateral Patellar Deep Tendon Reflex 2+ Normal PT-OP-K Range of Motion Start: 01/26/18 15:58 Freq: Status: Active Protocol: Document 01/26/18 15:15 RCC (Rec: 01/30/18 13:02 RCC [email or web address]) Ankle and Foot Goniometric Range of Motion Ankle and Foot Measured in Degrees Right Passive Dorsiflexion with Knee Flexed 19 Dorsiflexion with Knee Extended 18 Left Passive Dorsiflexion with Knee Flexed 18 Dorsiflexion with Knee Extended 15 Right Active Ankle/Foot ROM WFL No Dorsiflexion with Knee Flexed 18 Dorsiflexion with Knee Extended 12 Plantarflexion 50 Left Active Ankle/Foot ROM WFL No Dorsiflexion with Knee Flexed 13 Dorsiflexion with Knee Extended 9 Plantarflexion 42 PT-OP-L Special Tests Start: 01/26/18 15:58 Freq: Status: Active Protocol: Document 01/26/18 15:15 RCC (Rec: 01/30/18 13:02 RCC [email or web address]) Special Tests Foot/Ankle Special Tests Patton Test Results negative bilaterally PT-OP-M Strength Start: 01/26/18 15:58 Freq: Status: Active Protocol: Document 01/26/18 15:15 RCC (Rec: 01/30/18 13:02 RCC [email or web address]) Hip Strength Hip Manual Muscle Testing Right Flexion (L2) 4 Good Abduction 4 Good Adduction 5 Normal Left Flexion (L2) 4 Good Abduction 4 Good Adduction 5 Normal Knee Strength Knee Manual Muscle Testing Right Flexion (S2) 5 Normal Extension (L3) 5 Normal Left Flexion (S2) 5 Normal Extension (L3) 5 Normal Ankle/Foot Strength Ankle and Foot Manual Muscle Testing Right Dorsiflexion (L4) 5 Normal Plantarflexion (S1) 4 Good Reason Not Measured Pain Comments 10 reps SL heel raise Left Dorsiflexion (L4) 5 Normal Plantarflexion (S1) 4 Good Reason Not Measured Pain Comments 8 reps SL heel raise PT-OP-Q Treatments Start: 01/26/18 15:58 Freq: Status: Active Protocol: Document 01/26/18 15:15 RCC (Rec: 01/30/18 13:02 RCC [email or web address]) Therapeutic Exercises Standing Exercises gastroc/soleus strech Standing Exercise Name gastroc/soleus stretch Side bilateral Equipment Used stairs Reps/Minutes 3x30 sec PT-OP-T Assessment and Plan Start: 01/26/18 15:58 Freq: Status: Active Protocol: Document 01/26/18 15:15 RCC (Rec: 01/30/18 13:02 RCC [email or web address]) Physical Therapy Assessment Rehab Potential Rehabilitation Potential Good Evaluation Complexity Number of Personal Factors/Comorbidities 0 Number of Body Systems Impaired 3 Clinical Presentation at Evaluation Stable Impairments Impairments Activity Tolerance Gait Pain ROM Soft Tissue Mobility Strength Goals Ankle ROM Mcfp Goal (LTG) Ankle DF 10 (knee extended) and 20 (knee flexed) AROM bilaterally for improvements with gait, uneven terrain management, and stair tolerance. LTG Duration 8 weeks stairs Impairment antalgic stair management Mcfp Goal (LTG) pt will be able to go up/down 15 steps without c/o pain prior to d/c. LTG Duration 8 weeks walking Impairment unable to walk for exercise outdoors Short Term Goal (STG) pt able to walk for 15 min, 5 days per week for exercise without pain. STG Duration 4 weeks Mcfp Goal (LTG) pt able to walk for 30 min, 5 days per week for exercise without pain (indep. walking program). LTG Duration 8 weeks LEFS Impairment Lower Extremity Functional Scale (62/80) Mcfp Goal (LTG) Score of at least 70/80 on the LEFS to improve with functional mobility and activity tolerance. LTG Duration 8 weeks Assessment Summary Assessment Pt presents with intact achilles bilaterally, but tension noted bilaterally with L>R noted. She demonstrates muscular weakness in the bilateral gastroc/soleus complex, and increased pain and fatigue with single leg heel raise. Overall, pt would greatly benefit from physical therapy to progress her strength, improve gait and ROM , and progress toward a tolerable home walking program and return to prior level of function. Physical Therapy Plan Frequency and Duration Frequency of Treatment 2x/Week Duration of Treatment 8 weeks Plan of Care Start Date 01/26/18 Plan of Care End Date 03/23/18 Therapeutic Interventions Therapeutic Interventions Aquatic Therapy Gait Training Home Exercise Program Manual Therapy Neuromuscular Re-education Patient/Caregiver Education Self-Care/Home Management Soft Tissue Mobilization Taping Therapeutic Activities Therapeutic Exercises Modalities Cold Pack/Ice Massage Electric Stimulation Hot Packs Ultrasound Next Visit Focus/Plan Next Note Type Treatment Note Next Visit Plan prog. B ankle strength ( resistance bands), cont. heel cord stretching, LE strengthening (hip abduction).
--- NOTE | 2018-01-26 15:15 | PT.OPPOC ---
Current Diagnoses Muscle weakness (generalized) (01/26/18) Achilles tendinitis, right leg (01/26/18) Achilles tendinitis, left leg (01/26/18) Provider Visit Care Team Role Provider Type Sagar Martin MD Family Provider Physician Primary Care Provider Specialty: Family Practice Address: [address] [place] [address], [id number] Email: [email or web address] Adrianne Prince DNP, ANP, SAFETY OFFICER-C Attending Provider Advanced Steamtable Worker Specialty: [facility] Practice Address: [address] [place] [address], [id number] Email: Plan Of Care PT-OP-T Assessment and Plan Start: 01/26/18 15:58 Freq: Status: Active Protocol: Document 01/26/18 15:15 RCC (Rec: 01/30/18 13:02 RCC [email or web address]) Physical Therapy Assessment Rehab Potential Rehabilitation Potential Good Evaluation Complexity Number of Personal Factors/Comorbidities 0 Number of Body Systems Impaired 3 Clinical Presentation at Evaluation Stable Impairments Impairments Activity Tolerance Gait Pain ROM Soft Tissue Mobility Strength Goals Ankle ROM Fdc Goal (LTG) Ankle DF 10 (knee extended) and 20 (knee flexed) AROM bilaterally for improvements with gait, uneven terrain management, and stair tolerance. LTG Duration 8 weeks stairs Impairment antalgic stair management Fdc Goal (LTG) pt will be able to go up/down 15 steps without c/o pain prior to d/c. LTG Duration 8 weeks walking Impairment unable to walk for exercise outdoors Short Term Goal (STG) pt able to walk for 15 min, 5 days per week for exercise without pain. STG Duration 4 weeks Fdc Goal (LTG) pt able to walk for 30 min, 5 days per week for exercise without pain (indep. walking program). LTG Duration 8 weeks LEFS Impairment Lower Extremity Functional Scale (62/80) Fdc Goal (LTG) Score of at least 70/80 on the LEFS to improve with functional mobility and activity tolerance. LTG Duration 8 weeks Assessment Summary Assessment Pt presents with intact achilles bilaterally, but tension noted bilaterally with L>R noted. She demonstrates muscular weakness in the bilateral gastroc/soleus complex, and increased pain and fatigue with single leg heel raise. Overall, pt would greatly benefit from physical therapy to progress her strength, improve gait and ROM , and progress toward a tolerable home walking program and return to prior level of function. Physical Therapy Plan Frequency and Duration Frequency of Treatment 2x/Week Duration of Treatment 8 weeks Plan of Care Start Date 01/26/18 Plan of Care End Date 03/23/18 Therapeutic Interventions Therapeutic Interventions Aquatic Therapy Gait Training Home Exercise Program Manual Therapy Neuromuscular Re-education Patient/Caregiver Education Self-Care/Home Management Soft Tissue Mobilization Taping Therapeutic Activities Therapeutic Exercises Modalities Cold Pack/Ice Massage Electric Stimulation Hot Packs Ultrasound Next Visit Focus/Plan Next Note Type Treatment Note Next Visit Plan prog. B ankle strength ( resistance bands), cont. heel cord stretching, LE strengthening (hip abduction). Plan of Care Dates Plan of Care Start Date 01/26/18 Plan of Care End Date 03/23/18 Please Sign and Return: I have reviewed this Plan of Care and certify that the skilled therapy services above are required to meet the patient?s needs. Physician Signature Date Printed Name and Credentials Clinical Instructor Signature Printed Name and Credentials
--- NOTE | 2018-02-09 15:14 | PT.OTN ---
Current Diagnoses Achilles tendinitis, right leg (02/09/18) Achilles tendinitis, left leg (02/09/18) Physical Therapy Treatment Note PT-OP-A Visit Information Start: 01/26/18 15:58 Freq: Status: Active Protocol: Document 02/09/18 15:14 RCC (Rec: 02/10/18 10:44 RCC [email or web address]) Out-Patient Physical Therapy Visit Information Visit Information Visit Type Treatment Note Visit Start Time 14:31 Visit Stop Time 15:14 Total Visit Minutes 43 Visit Number 2/12 Number of CONSERVATION SCIENCE TEACHER Visits 0 Evaluation Information Evaluation Date 01/26/18 PT-OP-B Current Condition Start: 01/26/18 15:58 Freq: Status: Active Protocol: Document 01/26/18 15:15 RCC (Rec: 01/30/18 13:02 RCC [email or web address]) Current Condition History of Current Condition Onset Date Dec 2017 Current Complaints B heel and calf pain, tightness History of Current Condition Pt is a 47 y/o female presenting to physical therapy with a c/o bilateral calf and achilles pain and tension. Pt was ill on December 05, 2017 and states that she was possibly septic. She was placed on antibiotics. She took antibiotics for 10 days. After her antibiotic treatment , she had increased pain in bilateral calf and posterior knee. Her IRON WORKER noted that sometimes the antibiotics she was on can cause tendon and tissue issues, which she believes in the cause of this pain. Pain is limiting her ability to walk for exercise as well as going up/down a flight of stairs. Treatment Goals Patient/Caregiver Goals decrease pain, improve mobility Prior Functional Status Baseline Function- Gait community ambulation without device Baseline Function- Work/School no limitations Baseline Function- Recreation/Hobbies walking outdoors Current Functional Impairments (Reported) Functional Limitations- Recreation/ uanble to walk outdoors for Hobbies exercise PT-OP-C Subjective Start: 01/26/18 15:58 Freq: Status: Active Protocol: Document 02/09/18 15:14 RCC (Rec: 02/10/18 10:44 RCC [email or web address]) OP-PT Subjective Patient Comments Patient Comments pt notes that she was sore after previous session. She has been compliant with HEP. PT-OP-F Manual Assessment Start: 01/26/18 15:58 Freq: Status: Active Protocol: Document 02/09/18 15:14 RCC (Rec: 02/10/18 10:44 RCC [email or web address]) Manual Assessments Soft Tissue Assessment Soft Tissue Mobility Assessment moderate tension L gastoc/ soleus, mild R gastroc/soleus; lateral>medial PT-OP-G Mobility & Gait Start: 01/26/18 15:58 Freq: Status: Active Protocol: Document 01/26/18 15:15 RCC (Rec: 01/30/18 13:02 RCC [email or web address]) OP Gait Assessment Assistive Devices Assistive Device None Comments Gait Comments decreased push off bilaterally , slightly antalgic. Stair Climbing Evaluation Comments Stair Climbing Comments step through, mildly antalgic ascend/descend. PT-OP-H Neuro Start: 01/26/18 15:58 Freq: Status: Active Protocol: Document 01/26/18 15:15 RCC (Rec: 01/30/18 13:02 RCC [email or web address]) Sensation Evaluation Gross Sensation Gross Sensation WNL Deep Tendon Reflex & Clonus Assessment Deep Tendon Reflex Bilateral Achilles Deep Tendon Reflex 2+ Normal Bilateral Patellar Deep Tendon Reflex 2+ Normal PT-OP-K Range of Motion Start: 01/26/18 15:58 Freq: Status: Active Protocol: Document 01/26/18 15:15 RCC (Rec: 01/30/18 13:02 RCC [email or web address]) Ankle and Foot Goniometric Range of Motion Ankle and Foot Measured in Degrees Right Passive Dorsiflexion with Knee Flexed 19 Dorsiflexion with Knee Extended 18 Left Passive Dorsiflexion with Knee Flexed 18 Dorsiflexion with Knee Extended 15 Right Active Ankle/Foot ROM WFL No Dorsiflexion with Knee Flexed 18 Dorsiflexion with Knee Extended 12 Plantarflexion 50 Left Active Ankle/Foot ROM WFL No Dorsiflexion with Knee Flexed 13 Dorsiflexion with Knee Extended 9 Plantarflexion 42 PT-OP-L Special Tests Start: 01/26/18 15:58 Freq: Status: Active Protocol: Document 01/26/18 15:15 RCC (Rec: 01/30/18 13:02 RCC [email or web address]) Special Tests Foot/Ankle Special Tests Patton Test Results negative bilaterally PT-OP-M Strength Start: 01/26/18 15:58 Freq: Status: Active Protocol: Document 01/26/18 15:15 RCC (Rec: 01/30/18 13:02 RCC [email or web address]) Hip Strength Hip Manual Muscle Testing Right Flexion (L2) 4 Good Abduction 4 Good Adduction 5 Normal Left Flexion (L2) 4 Good Abduction 4 Good Adduction 5 Normal Knee Strength Knee Manual Muscle Testing Right Flexion (S2) 5 Normal Extension (L3) 5 Normal Left Flexion (S2) 5 Normal Extension (L3) 5 Normal Ankle/Foot Strength Ankle and Foot Manual Muscle Testing Right Dorsiflexion (L4) 5 Normal Plantarflexion (S1) 4 Good Reason Not Measured Pain Comments 10 reps SL heel raise Left Dorsiflexion (L4) 5 Normal Plantarflexion (S1) 4 Good Reason Not Measured Pain Comments 8 reps SL heel raise PT-OP-Q Treatments Start: 01/26/18 15:58 Freq: Status: Active Protocol: Document 02/09/18 15:14 RCC (Rec: 02/10/18 10:44 [facility] [email or web address]) Therapeutic Exercises Sitting Exercises ankle PF Sitting Exercise Name ankle PF Side bilateral Resistance L3 Reps/Minutes 3x15 each Standing Exercises gastroc/soleus strech Standing Exercise Name gastroc/soleus stretch Side bilateral Equipment Used THAI Reps/Minutes 3x30 sec Manual Therapy Treatment Soft Tissue Mobilization 2 Body Location B gastroc & soleus Mobilization Type Rolling Intensity/Depth Moderate Body Position Prone 1 Body Location L achilles Mobilization Type Other Intensity/Depth Moderate Body Position Prone PT-OP-T Assessment and Plan Start: 01/26/18 15:58 Freq: Status: Active Protocol: Document 02/09/18 15:14 [facility] (Rec: 02/10/18 10:44 [facility] [email or web address]) Physical Therapy Assessment Assessment Summary Assessment Pt with greater tension in the L compared to the R in the gastroc/soleus complex. Pt's tension does affect her ability to tolerate ambulation , with decreased push-off bilaterally. Physical Therapy Plan Frequency and Duration Frequency of Treatment 2x/Week Duration of Treatment 8 weeks Plan of Care Start Date 01/26/18 Plan of Care End Date 03/23/18 Next Visit Focus/Plan Next Note Type Treatment Note Next Visit Plan hip abduction/ER strengthening , leg press.
--- NOTE | 2018-04-14 14:30 | PT.OPPOC ---
Current Diagnoses Achilles tendinitis, right leg (04/14/18) Achilles tendinitis, left leg (04/14/18) Provider Visit Care Team Role Provider Type Sagar Martin MD Family Provider Physician Primary Care Provider Specialty: [facility] Address: [address] [place] [address], [id number] Email: [email or web address] Adrianne Prince, VINNIE, ANP, TAP DANCER-C Attending Provider Advanced Supplier Quality Manager Specialty: [facility] Address: [address] [place] [address], [id number] Email: Plan Of Care PT-OP-T Assessment and Plan Start: 01/26/18 15:58 Freq: Status: Active Protocol: Document 04/14/18 14:30 HH (Rec: 04/14/18 16:01 HH [email or web address]) Physical Therapy Assessment Rehab Potential Rehabilitation Potential Good Evaluation Complexity Number of Personal Factors/Comorbidities 0 Number of Body Systems Impaired 3 Clinical Presentation at Evaluation Stable Impairments Impairments Activity Tolerance Gait Pain ROM Soft Tissue Mobility Strength Goals Ankle ROM Impairment ROM Short Term Goal (STG) increase overall DF pass and active by 2 degrees for feet clearance STG Duration 4 weeks Research Agricultural Engineer Goal (LTG) increase overall DF pass and active by 5 degrees for feet clearance LTG Duration 8 weeks stairs Impairment pain Short Term Goal (STG) reduce pain by 2 points during stair negotiation STG Duration 4 weeks Residential Goal (LTG) reduce pain by 4 points during stair negotiation LTG Duration 8 weeks walking Impairment endurance Short Term Goal (STG) pt able to walk for 15 min, 5 days per week for exercise without pain. STG Duration 4 weeks Residential Goal (LTG) pt able to walk for 30 min, 5 days per week for exercise without pain (indep. walking program). LTG Duration 8 weeks Progress Towards Goals Progress Towards Goals Slow Progress due to Activity Tolerance Slow Progress - Other Progress Comments Pt reports her pain has decreased for the past 2 months and able to perform functional activities with reduced discomfort. Assessment Summary Assessment Pt has not seen PT since 02/09 due to personal issues. Pt reports she is compliant to HEP with stretches and calf raises, but do not walk consistently to maintain her functional strength and mobility. Pt states PT did address her symptoms quite well with pain decreased from 8 to 5 now with increased activity tolerance without experiencing aggravation such as stair mangaement and walking. Pt c/o her symptoms increases towards the end of the day and she tends to be sedentary most of the time because of her job. Upon reassessment today, pt cont presents lack of functional ankle mobility and strength possibly due to her sedentary lifestyle. However, pt abraham tx very well today with reports decreased pain after IASTM at bilateral calfs along with ankle stability exercises. Pt will cont benefit from skilled PT to address aforementioned impairments and previous successful outcomes. cont POC to focus on improving overall ankle mobility, stability, strength of B ankle PF, DF, Physical Therapy Plan Frequency and Duration Frequency of Treatment 2x/Week Duration of Treatment 8 weeks Plan of Care Start Date 04/14/18 Plan of Care End Date 06/08/17 Therapeutic Interventions Therapeutic Interventions Aquatic Therapy Gait Training Home Exercise Program Manual Therapy Neuromuscular Re-education Patient/Caregiver Education Self-Care/Home Management Soft Tissue Mobilization Taping Therapeutic Activities Therapeutic Exercises Modalities Cold Pack/Ice Massage Electric Stimulation Hot Packs Ultrasound Next Visit Focus/Plan Next Note Type Treatment Note Next Visit Plan B ankle and hip strengthening, hip abd/ ER strengthening ankle dynamic stability training Plan of Care Dates Plan of Care Start Date 04/14/18 Plan of Care End Date 06/08/17 Please Sign and Return: I have reviewed this Plan of Care and certify that the skilled therapy services above are required to meet the patient?s needs. Physician Signature Date Printed Name and Credentials Clinical Instructor Signature Printed Name and Credentials
--- NOTE | 2018-04-14 18:24 | PT.OTRE ---
Current Diagnoses Achilles tendinitis, right leg (04/14/18) Achilles tendinitis, left leg (04/14/18) Past Medical History (Last Reviewed 12/06/17 @ 02:48 by Portillo Berkowitz DO) Anemia (Chronic) Asthma (Chronic ~2002) Fibroids (Chronic ~2015) GERD (gastroesophageal reflux disease) (Chronic ~2016) Hay fever (Chronic ~1999) Kidney stones (Chronic ~2016) Ovarian cyst (Chronic ~2015) Shoulder pain (Chronic) Chicken pox (Resolved ~1973) Surgical History (Last Reviewed 12/06/17 @ 02:48 by Portillo Berkowitz DO) Anesthesia (Resolved) Status post endometrial ablation (~01/2016) Provider Visit Care Team Role Provider Type Sagar Martin MD Family Provider Physician Primary Care Provider Specialty: [facility] Practice Address: [address] [place] [address] Email: [email or web address] Adrianne Prince DNP, ANP, BONE CHAR OPERATOR-C Attending Provider Advanced Farm Service Adviser Specialty: [facility] Address: [address] [place] [address] Email: Physical Therapy Re-Evaluation PT-OP-A Visit Information Start: 01/26/18 15:58 Freq: Status: Active Protocol: Document 04/14/18 14:30 HH (Rec: 04/14/18 16:01 [email or web address]) Out-Patient Physical Therapy Visit Information Visit Information Visit Type Re-Evaluation Visit Start Time 14:30 Visit Stop Time 15:15 Total Visit Minutes 45 Visit Number 3/12 Number of CLERICAL OFFICE WORKER Visits 0 PT-OP-B Current Condition Start: 01/26/18 15:58 Freq: Status: Active Protocol: Document 01/26/18 15:15 RCC (Rec: 01/30/18 13:02 RCC [email or web address]) Current Condition History of Current Condition Onset Date Dec 2017 Current Complaints B heel and calf pain, tightness History of Current Condition Pt is a 47 y/o female presenting to physical therapy with a c/o bilateral calf and achilles pain and tension. Pt was ill on December 05, 2017 and states that she was possibly septic. She was placed on antibiotics. She took antibiotics for 10 days. After her antibiotic treatment , she had increased pain in bilateral calf and posterior knee. Her FLY WORKER noted that sometimes the antibiotics she was on can cause tendon and tissue issues, which she believes in the cause of this pain. Pain is limiting her ability to walk for exercise as well as going up/down a flight of stairs. Treatment Goals Patient/Caregiver Goals decrease pain, improve mobility Prior Functional Status Baseline Function- Gait community ambulation without device Baseline Function- Work/School no limitations Baseline Function- Recreation/Hobbies walking outdoors Current Functional Impairments (Reported) Functional Limitations- Recreation/ uanble to walk outdoors for Hobbies exercise PT-OP-C Subjective Start: 01/26/18 15:58 Freq: Status: Active Protocol: Document 04/14/18 14:30 HH (Rec: 04/14/18 16:01 HH [email or web address]) OP-PT Subjective Patient Comments Patient Comments Pt has not received PT since 02/10/28 due to improved rehab progress. Pt presents to clinic today with c/o cont experiencing pain 5/10 and tightness at her B calfs. Patient Reported Progress Improving PT-OP-F Manual Assessment Start: 01/26/18 15:58 Freq: Status: Active Protocol: Document 04/14/18 14:30 HH (Rec: 04/14/18 16:01 HH [email or web address]) Manual Assessments Soft Tissue Assessment Soft Tissue Mobility Assessment moderate tension L gastoc/ soleus, mild R gastroc/soleus; lateral>medial PT-OP-G Mobility & Gait Start: 01/26/18 15:58 Freq: Status: Active Protocol: Document 04/14/18 14:30 HH (Rec: 04/14/18 16:01 HH [email or web address]) OP Gait Assessment Comments Gait Comments No antalgic gait noted. PT-OP-H Neuro Start: 01/26/18 15:58 Freq: Status: Active Protocol: Document 01/26/18 15:15 RCC (Rec: 01/30/18 13:02 RCC [email or web address]) Sensation Evaluation Gross Sensation Gross Sensation WNL Deep Tendon Reflex & Clonus Assessment Deep Tendon Reflex Bilateral Achilles Deep Tendon Reflex 2+ Normal Bilateral Patellar Deep Tendon Reflex 2+ Normal PT-OP-K Range of Motion Start: 01/26/18 15:58 Freq: Status: Active Protocol: Document 04/14/18 14:30 HH (Rec: 04/14/18 16:01 [email or web address]) Ankle and Foot Goniometric Range of Motion Ankle and Foot Measured in Degrees Right Passive Dorsiflexion with Knee Flexed 20 Dorsiflexion with Knee Extended 18 Left Passive Dorsiflexion with Knee Flexed 18 Dorsiflexion with Knee Extended 16 Right Active Ankle/Foot ROM WFL No Dorsiflexion with Knee Flexed 16 Dorsiflexion with Knee Extended 12 Plantarflexion 55 Left Active Ankle/Foot ROM WFL No Dorsiflexion with Knee Flexed 12 Dorsiflexion with Knee Extended 6 Plantarflexion 50 PT-OP-L Special Tests Start: 01/26/18 15:58 Freq: Status: Active Protocol: Document 04/14/18 14:30 HH (Rec: 04/14/18 16:01 [email or web address]) Special Tests Foot/Ankle Special Tests Patton Test Results negative bilaterally PT-OP-M Strength Start: 01/26/18 15:58 Freq: Status: Active Protocol: Document 04/14/18 14:30 HH (Rec: 04/14/18 16:01 [email or web address]) Ankle/Foot Strength Ankle and Foot Manual Muscle Testing Right Dorsiflexion (L4) 5 Normal Plantarflexion (S1) 4+ Good+ Left Dorsiflexion (L4) 5 Normal Plantarflexion (S1) 4+ Good+ PT-OP-Q Treatments Start: 01/26/18 15:58 Freq: Status: Active Protocol: Document 04/14/18 14:30 HH (Rec: 04/14/18 18:23 [email or web address]) Therapeutic Exercises Standing Exercises kimberley disk Standing Exercise Name SLS on kimberley disk Side bilateral Reps/Minutes 5 mins PT-OP-T Assessment and Plan Start: 01/26/18 15:58 Freq: Status: Active Protocol: Document 04/14/18 14:30 HH (Rec: 04/14/18 16:01 [email or web address]) Physical Therapy Assessment Rehab Potential Rehabilitation Potential Good Evaluation Complexity Number of Personal Factors/Comorbidities 0 Number of Body Systems Impaired 3 Clinical Presentation at Evaluation Stable Impairments Impairments Activity Tolerance Gait Pain ROM Soft Tissue Mobility Strength Goals Ankle ROM Impairment ROM Short Term Goal (STG) increase overall DF pass and active by 2 degrees for feet clearance STG Duration 4 weeks Manager Sas Goal (LTG) increase overall DF pass and active by 5 degrees for feet clearance LTG Duration 8 weeks stairs Impairment pain Short Term Goal (STG) reduce pain by 2 points during stair negotiation STG Duration 4 weeks Group Home Goal (LTG) reduce pain by 4 points during stair negotiation LTG Duration 8 weeks walking Impairment endurance Short Term Goal (STG) pt able to walk for 15 min, 5 days per week for exercise without pain. STG Duration 4 weeks Group Home Goal (LTG) pt able to walk for 30 min, 5 days per week for exercise without pain (indep. walking program). LTG Duration 8 weeks Progress Towards Goals Progress Towards Goals Slow Progress due to Activity Tolerance Slow Progress - Other Progress Comments Pt reports her pain has decreased for the past 2 months and able to perform functional activities with reduced discomfort. Assessment Summary Assessment Pt has not seen PT since 02/09 due to personal issues. Pt reports she is compliant to HEP with stretches and calf raises, but do not walk consistently to maintain her functional strength and mobility. Pt states PT did address her symptoms quite well with pain decreased from 8 to 5 now with increased activity tolerance without experiencing aggravation such as stair mangaement and walking. Pt c/o her symptoms increases towards the end of the day and she tends to be sedentary most of the time because of her job. Upon reassessment today, pt cont presents lack of functional ankle mobility and strength possibly due to her sedentary lifestyle. However, pt abraham tx very well today with reports decreased pain after IASTM at bilateral calfs along with ankle stability exercises. Pt will cont benefit from skilled PT to address aforementioned impairments and previous successful outcomes. cont POC to focus on improving overall ankle mobility, stability, strength of B ankle PF, DF, Physical Therapy Plan Frequency and Duration Frequency of Treatment 2x/Week Duration of Treatment 8 weeks Plan of Care Start Date 04/14/18 Plan of Care End Date 06/08/17 Therapeutic Interventions Therapeutic Interventions Aquatic Therapy Gait Training Home Exercise Program Manual Therapy Neuromuscular Re-education Patient/Caregiver Education Self-Care/Home Management Soft Tissue Mobilization Taping Therapeutic Activities Therapeutic Exercises Modalities Cold Pack/Ice Massage Electric Stimulation Hot Packs Ultrasound Next Visit Focus/Plan Next Note Type Treatment Note Next Visit Plan B ankle and hip strengthening, hip abd/ ER strengthening ankle dynamic stability training
--- NOTE | 2018-04-20 15:56 | PT.OTN ---
Current Diagnoses Achilles tendinitis, right leg (04/20/18) Achilles tendinitis, left leg (04/20/18) Physical Therapy Treatment Note PT-OP-A Visit Information Start: 01/26/18 15:58 Freq: Status: Active Protocol: Document 04/20/18 14:26 EA (Rec: 04/20/18 14:35 EA [id number]) Out-Patient Physical Therapy Visit Information Visit Information Visit Type Treatment Note Visit Start Time 13:45 Visit Stop Time 15:30 Total Visit Minutes 40 Visit Number 4/12 Number of LUBE MAN Visits 0 PT-OP-B Current Condition Start: 01/26/18 15:58 Freq: Status: Active Protocol: Document 01/26/18 15:15 RCC (Rec: 01/30/18 13:02 RCC [email or web address]) Current Condition History of Current Condition Onset Date Dec 2017 Current Complaints B heel and calf pain, tightness History of Current Condition Pt is a 47 y/o female presenting to physical therapy with a c/o bilateral calf and achilles pain and tension. Pt was ill on December 05, 2017 and states that she was possibly septic. She was placed on antibiotics. She took antibiotics for 10 days. After her antibiotic treatment , she had increased pain in bilateral calf and posterior knee. Her MEAT CUTTER noted that sometimes the antibiotics she was on can cause tendon and tissue issues, which she believes in the cause of this pain. Pain is limiting her ability to walk for exercise as well as going up/down a flight of stairs. Treatment Goals Patient/Caregiver Goals decrease pain, improve mobility Prior Functional Status Baseline Function- Gait community ambulation without device Baseline Function- Work/School no limitations Baseline Function- Recreation/Hobbies walking outdoors Current Functional Impairments (Reported) Functional Limitations- Recreation/ uanble to walk outdoors for Hobbies exercise PT-OP-C Subjective Start: 01/26/18 15:58 Freq: Status: Active Protocol: Document 04/20/18 14:26 EA (Rec: 04/20/18 14:35 EA [id number]) OP-PT Subjective Patient Comments Patient Comments Pt reports both calves were tight after last session. PT-OP-F Manual Assessment Start: 01/26/18 15:58 Freq: Status: Active Protocol: Document 04/14/18 14:30 HH (Rec: 04/14/18 16:01 HH [email or web address]) Manual Assessments Soft Tissue Assessment Soft Tissue Mobility Assessment moderate tension L gastoc/ soleus, mild R gastroc/soleus; lateral>medial PT-OP-G Mobility & Gait Start: 01/26/18 15:58 Freq: Status: Active Protocol: Document 04/14/18 14:30 HH (Rec: 04/14/18 16:01 [email or web address]) OP Gait Assessment Comments Gait Comments No antalgic gait noted. PT-OP-H Neuro Start: 01/26/18 15:58 Freq: Status: Active Protocol: Document 01/26/18 15:15 RCC (Rec: 01/30/18 13:02 RCC [email or web address]) Sensation Evaluation Gross Sensation Gross Sensation WNL Deep Tendon Reflex & Clonus Assessment Deep Tendon Reflex Bilateral Achilles Deep Tendon Reflex 2+ Normal Bilateral Patellar Deep Tendon Reflex 2+ Normal PT-OP-K Range of Motion Start: 01/26/18 15:58 Freq: Status: Active Protocol: Document 04/14/18 14:30 HH (Rec: 04/14/18 16:01 [email or web address]) Ankle and Foot Goniometric Range of Motion Ankle and Foot Measured in Degrees Right Passive Dorsiflexion with Knee Flexed 20 Dorsiflexion with Knee Extended 18 Left Passive Dorsiflexion with Knee Flexed 18 Dorsiflexion with Knee Extended 16 Right Active Ankle/Foot ROM WFL No Dorsiflexion with Knee Flexed 16 Dorsiflexion with Knee Extended 12 Plantarflexion 55 Left Active Ankle/Foot ROM WFL No Dorsiflexion with Knee Flexed 12 Dorsiflexion with Knee Extended 6 Plantarflexion 50 PT-OP-L Special Tests Start: 01/26/18 15:58 Freq: Status: Active Protocol: Document 04/14/18 14:30 HH (Rec: 04/14/18 16:01 [email or web address]) Special Tests Foot/Ankle Special Tests Patton Test Results negative bilaterally PT-OP-M Strength Start: 01/26/18 15:58 Freq: Status: Active Protocol: Document 04/14/18 14:30 HH (Rec: 04/14/18 16:01 [email or web address]) Ankle/Foot Strength Ankle and Foot Manual Muscle Testing Right Dorsiflexion (L4) 5 Normal Plantarflexion (S1) 4+ Good+ Left Dorsiflexion (L4) 5 Normal Plantarflexion (S1) 4+ Good+ PT-OP-Q Treatments Start: 01/26/18 15:58 Freq: Status: Active Protocol: Document 04/20/18 14:26 EA (Rec: 04/20/18 14:35 EA [id number]) Cardio Equipment Treadmill Duration (Minutes) 5 Speed 1.5 Incline 0-7 Therapeutic Exercises Sitting Exercises ankle PF Sitting Exercise Name ankle PF Side bilateral Resistance L3 Reps/Minutes 3x15 each Standing Exercises kimberley disk Standing Exercise Name SLS on Bluee foam: ar m challenge Side bilateral Reps/Minutes 5 mins gastroc/soleus strech Standing Exercise Name gastroc/soleus stretch Side bilateral Equipment Used THAI Reps/Minutes 3x30 sec 5 Standing Exercise Name edge of stairs Heel raises Side bilateral Reps/Minutes x 10 reps 4 Standing Exercise Name BUSO: PF/DF/EV/INV Reps/Minutes x 10 repes each Comments Hand to guard for support on stairs rails Manual Therapy Treatment Soft Tissue Mobilization 2 Body Location B gastroc & soleus Mobilization Type Myofascial Release Rolling Other Intensity/Depth Moderate Body Position Sitting Comments effleurage to begin and ends 1 Body Location L achilles Mobilization Type Other Intensity/Depth Moderate Body Position Prone PT-OP-T Assessment and Plan Start: 01/26/18 15:58 Freq: Status: Active Protocol: Document 04/20/18 14:26 EA (Rec: 04/20/18 14:35 EA [id number]) Physical Therapy Assessment Assessment Summary Assessment Decreased tolerance to standing exercises still noticeable and requires few rests. Physical Therapy Plan Next Visit Focus/Plan Next Note Type Treatment Note Next Visit Plan B ankle and hip strengthening, hip abd/ ER strengthening ankle dynamic stability training
--- NOTE | 2018-04-27 15:14 | PT.OTN ---
Current Diagnoses Achilles tendinitis, right leg (04/27/18) Achilles tendinitis, left leg (04/27/18) Physical Therapy Treatment Note PT-OP-A Visit Information Start: 01/26/18 15:58 Freq: Status: Active Protocol: Document 04/27/18 15:14 RCC (Rec: 04/27/18 15:19 RCC [email or web address]) Out-Patient Physical Therapy Visit Information Visit Information Visit Type Treatment Note Visit Start Time 13:49 Visit Stop Time 15:14 Total Visit Minutes 40 Visit Number 5/12 Number of CERAMIC WORKER Visits 0 Evaluation Information Evaluation Date 01/26/18 PT-OP-B Current Condition Start: 01/26/18 15:58 Freq: Status: Active Protocol: Document 01/26/18 15:15 RCC (Rec: 01/30/18 13:02 RCC [email or web address]) Current Condition History of Current Condition Onset Date Dec 2017 Current Complaints B heel and calf pain, tightness History of Current Condition Pt is a 47 y/o female presenting to physical therapy with a c/o bilateral calf and achilles pain and tension. Pt was ill on December 05, 2017 and states that she was possibly septic. She was placed on antibiotics. She took antibiotics for 10 days. After her antibiotic treatment , she had increased pain in bilateral calf and posterior knee. Her POT ROOM TAPPER noted that sometimes the antibiotics she was on can cause tendon and tissue issues, which she believes in the cause of this pain. Pain is limiting her ability to walk for exercise as well as going up/down a flight of stairs. Treatment Goals Patient/Caregiver Goals decrease pain, improve mobility Prior Functional Status Baseline Function- Gait community ambulation without device Baseline Function- Work/School no limitations Baseline Function- Recreation/Hobbies walking outdoors Current Functional Impairments (Reported) Functional Limitations- Recreation/ uanble to walk outdoors for Hobbies exercise PT-OP-C Subjective Start: 01/26/18 15:58 Freq: Status: Active Protocol: Document 04/27/18 15:14 RCC (Rec: 04/27/18 15:19 RCC [email or web address]) OP-PT Subjective Patient Comments Patient Comments Pt states she has had more pain in the L knee/calf vs. the R. She is doing her stretches. PT-OP-F Manual Assessment Start: 01/26/18 15:58 Freq: Status: Active Protocol: Document 04/27/18 15:14 RCC (Rec: 04/27/18 15:19 RCC [email or web address]) Manual Assessments Soft Tissue Assessment Soft Tissue Mobility Assessment Mod. tension L lateral gastroc /soleus PT-OP-G Mobility & Gait Start: 01/26/18 15:58 Freq: Status: Active Protocol: Document 04/14/18 14:30 HH (Rec: 04/14/18 16:01 HH [email or web address]) OP Gait Assessment Comments Gait Comments No antalgic gait noted. PT-OP-H Neuro Start: 01/26/18 15:58 Freq: Status: Active Protocol: Document 01/26/18 15:15 RCC (Rec: 01/30/18 13:02 RCC [email or web address]) Sensation Evaluation Gross Sensation Gross Sensation WNL Deep Tendon Reflex & Clonus Assessment Deep Tendon Reflex Bilateral Achilles Deep Tendon Reflex 2+ Normal Bilateral Patellar Deep Tendon Reflex 2+ Normal PT-OP-K Range of Motion Start: 01/26/18 15:58 Freq: Status: Active Protocol: Document 04/14/18 14:30 HH (Rec: 04/14/18 16:01 [email or web address]) Ankle and Foot Goniometric Range of Motion Ankle and Foot Measured in Degrees Right Passive Dorsiflexion with Knee Flexed 20 Dorsiflexion with Knee Extended 18 Left Passive Dorsiflexion with Knee Flexed 18 Dorsiflexion with Knee Extended 16 Right Active Ankle/Foot ROM WFL No Dorsiflexion with Knee Flexed 16 Dorsiflexion with Knee Extended 12 Plantarflexion 55 Left Active Ankle/Foot ROM WFL No Dorsiflexion with Knee Flexed 12 Dorsiflexion with Knee Extended 6 Plantarflexion 50 PT-OP-L Special Tests Start: 01/26/18 15:58 Freq: Status: Active Protocol: Document 04/14/18 14:30 HH (Rec: 04/14/18 16:01 HH [email or web address]) Special Tests Foot/Ankle Special Tests Patton Test Results negative bilaterally PT-OP-M Strength Start: 01/26/18 15:58 Freq: Status: Active Protocol: Document 04/14/18 14:30 HH (Rec: 04/14/18 16:01 HH [email or web address]) Ankle/Foot Strength Ankle and Foot Manual Muscle Testing Right Dorsiflexion (L4) 5 Normal Plantarflexion (S1) 4+ Good+ Left Dorsiflexion (L4) 5 Normal Plantarflexion (S1) 4+ Good+ PT-OP-Q Treatments Start: 01/26/18 15:58 Freq: Status: Active Protocol: Document 04/27/18 15:14 RCC (Rec: 04/27/18 15:19 [facility] [email or web address]) Gym Equipment Cable Column (Body Solid) Leg Curl Details bilateral Resistance 4 plates Reps/Time 20 reps Shuttle Balance 1 Details Red- A/P tilting for control and ROM Reps/Duration 5 min. Therapeutic Exercises Standing Exercises HS stretch Side bilateral Equipment Used stairs heel raises Standing Exercise Name bilateral and unilateral Reps/Minutes 1x20 B, 1x10 unilat. gastroc/soleus strech Standing Exercise Name gastroc/soleus stretch Side bilateral Equipment Used THAI Reps/Minutes 3x30 sec Manual Therapy Treatment Soft Tissue Mobilization 2 Body Location B gastroc & soleus Mobilization Type Myofascial Release Rolling Intensity/Depth Moderate Body Position Prone 1 Body Location L achilles Mobilization Type Cross-Friction Intensity/Depth Moderate Body Position Prone PT-OP-T Assessment and Plan Start: 01/26/18 15:58 Freq: Status: Active Protocol: Document 04/27/18 15:14 [facility] (Rec: 04/27/18 15:19 [facility] [email or web address]) Physical Therapy Assessment Assessment Summary Assessment Pt with increased tension in the L lateral gastroc/soleus, and still with tension bilaterally in the achilles. Pt able to tolerate 10 reps SL heel raise with fatigue but no pain this session (added to HEP). Physical Therapy Plan Frequency and Duration Frequency of Treatment 2x/Week Duration of Treatment 8 weeks Plan of Care Start Date 04/14/18 Plan of Care End Date 06/08/17 Next Visit Focus/Plan Next Note Type Treatment Note Next Visit Plan hip abd/ER strengthening, functional ROM- progress toward running.
--- NOTE | 2018-04-29 15:15 | PT.OTN ---
Current Diagnoses Achilles tendinitis, right leg (04/29/18) Achilles tendinitis, left leg (04/29/18) Physical Therapy Treatment Note PT-OP-A Visit Information Start: 01/26/18 15:58 Freq: Status: Active Protocol: Document 04/29/18 15:15 RCC (Rec: 04/30/18 14:46 RCC [email or web address]) Out-Patient Physical Therapy Visit Information Visit Information Visit Type Treatment Note Visit Start Time 14:30 Visit Stop Time 15:15 Total Visit Minutes 45 Visit Number 6/12 Number of METAL PLATER Visits 0 Evaluation Information Evaluation Date 01/26/18 PT-OP-B Current Condition Start: 01/26/18 15:58 Freq: Status: Active Protocol: Document 01/26/18 15:15 RCC (Rec: 01/30/18 13:02 RCC [email or web address]) Current Condition History of Current Condition Onset Date Dec 2017 Current Complaints B heel and calf pain, tightness History of Current Condition Pt is a 47 y/o female presenting to physical therapy with a c/o bilateral calf and achilles pain and tension. Pt was ill on December 05, 2017 and states that she was possibly septic. She was placed on antibiotics. She took antibiotics for 10 days. After her antibiotic treatment , she had increased pain in bilateral calf and posterior knee. Her AIR MARSHAL noted that sometimes the antibiotics she was on can cause tendon and tissue issues, which she believes in the cause of this pain. Pain is limiting her ability to walk for exercise as well as going up/down a flight of stairs. Treatment Goals Patient/Caregiver Goals decrease pain, improve mobility Prior Functional Status Baseline Function- Gait community ambulation without device Baseline Function- Work/School no limitations Baseline Function- Recreation/Hobbies walking outdoors Current Functional Impairments (Reported) Functional Limitations- Recreation/ uanble to walk outdoors for Hobbies exercise PT-OP-C Subjective Start: 01/26/18 15:58 Freq: Status: Active Protocol: Document 04/29/18 15:15 RCC (Rec: 04/30/18 14:46 RCC [email or web address]) OP-PT Subjective Patient Comments Patient Comments Pt states her L calf still feels tight, less discomfort in the achilles areas today. PT-OP-F Manual Assessment Start: 01/26/18 15:58 Freq: Status: Active Protocol: Document 04/27/18 15:14 RCC (Rec: 04/27/18 15:19 RCC [email or web address]) Manual Assessments Soft Tissue Assessment Soft Tissue Mobility Assessment Mod. tension L lateral gastroc /soleus PT-OP-G Mobility & Gait Start: 01/26/18 15:58 Freq: Status: Active Protocol: Document 04/14/18 14:30 HH (Rec: 04/14/18 16:01 HH [email or web address]) OP Gait Assessment Comments Gait Comments No antalgic gait noted. PT-OP-H Neuro Start: 01/26/18 15:58 Freq: Status: Active Protocol: Document 01/26/18 15:15 RCC (Rec: 01/30/18 13:02 RCC [email or web address]) Sensation Evaluation Gross Sensation Gross Sensation WNL Deep Tendon Reflex & Clonus Assessment Deep Tendon Reflex Bilateral Achilles Deep Tendon Reflex 2+ Normal Bilateral Patellar Deep Tendon Reflex 2+ Normal PT-OP-K Range of Motion Start: 01/26/18 15:58 Freq: Status: Active Protocol: Document 04/14/18 14:30 HH (Rec: 04/14/18 16:01 [email or web address]) Ankle and Foot Goniometric Range of Motion Ankle and Foot Measured in Degrees Right Passive Dorsiflexion with Knee Flexed 20 Dorsiflexion with Knee Extended 18 Left Passive Dorsiflexion with Knee Flexed 18 Dorsiflexion with Knee Extended 16 Right Active Ankle/Foot ROM WFL No Dorsiflexion with Knee Flexed 16 Dorsiflexion with Knee Extended 12 Plantarflexion 55 Left Active Ankle/Foot ROM WFL No Dorsiflexion with Knee Flexed 12 Dorsiflexion with Knee Extended 6 Plantarflexion 50 PT-OP-L Special Tests Start: 01/26/18 15:58 Freq: Status: Active Protocol: Document 04/14/18 14:30 HH (Rec: 04/14/18 16:01 HH [email or web address]) Special Tests Foot/Ankle Special Tests Patton Test Results negative bilaterally PT-OP-M Strength Start: 01/26/18 15:58 Freq: Status: Active Protocol: Document 04/14/18 14:30 HH (Rec: 04/14/18 16:01 HH [email or web address]) Ankle/Foot Strength Ankle and Foot Manual Muscle Testing Right Dorsiflexion (L4) 5 Normal Plantarflexion (S1) 4+ Good+ Left Dorsiflexion (L4) 5 Normal Plantarflexion (S1) 4+ Good+ PT-OP-Q Treatments Start: 01/26/18 15:58 Freq: Status: Active Protocol: Document 04/29/18 15:15 RCC (Rec: 04/30/18 14:46 [facility] [email or web address]) Therapeutic Exercises Standing Exercises nerve glides Standing Exercise Name sciatic and common fibular nerve glides Side bilateral Comments standing @ stairs gastroc/soleus strech Standing Exercise Name gastroc/soleus stretch Side bilateral Equipment Used THAI Reps/Minutes 3x30 sec Manual Therapy Treatment Soft Tissue Mobilization 2 Body Location B gastroc & soleus Mobilization Type Myofascial Release Rolling Intensity/Depth Moderate Body Position Prone 1 Body Location L achilles Mobilization Type Cross-Friction Intensity/Depth Moderate Body Position Prone PT-OP-T Assessment and Plan Start: 01/26/18 15:58 Freq: Status: Active Protocol: Document 04/29/18 15:15 [facility] (Rec: 04/30/18 14:46 [facility] [email or web address]) Physical Therapy Assessment Assessment Summary Assessment Increased time today spent with manual therapy, soft tissue release to the bilateral soleus and gastroc as well as the achilles to decrease muscle tone. Sciatic and common fibular nerve glides added to her HEP, with increased tension on the L vs the R noted. Physical Therapy Plan Frequency and Duration Frequency of Treatment 2x/Week Duration of Treatment 8 weeks Plan of Care Start Date 04/14/18 Plan of Care End Date 06/08/17 Next Visit Focus/Plan Next Note Type Treatment Note Next Visit Plan assess tolerance to nerve glides and tension in the gastroc/soleus. Continue to advance HEP toward jogging/ running program
--- NOTE | 2018-05-04 15:10 | PT.OTN ---
Current Diagnoses Achilles tendinitis, right leg (05/04/18) Achilles tendinitis, left leg (05/04/18) Physical Therapy Treatment Note PT-OP-A Visit Information Start: 01/26/18 15:58 Freq: Status: Active Protocol: Document 05/04/18 15:10 RCC (Rec: 05/04/18 15:18 RCC [email or web address]) Out-Patient Physical Therapy Visit Information Visit Information Visit Type Treatment Note Visit Start Time 14:29 Visit Stop Time 15:10 Total Visit Minutes 41 Visit Number 7/12 Number of LINDERMAN OPERATOR Visits 0 Evaluation Information Evaluation Date 01/26/18 PT-OP-B Current Condition Start: 01/26/18 15:58 Freq: Status: Active Protocol: Document 01/26/18 15:15 RCC (Rec: 01/30/18 13:02 RCC [email or web address]) Current Condition History of Current Condition Onset Date Dec 2017 Current Complaints B heel and calf pain, tightness History of Current Condition Pt is a 47 y/o female presenting to physical therapy with a c/o bilateral calf and achilles pain and tension. Pt was ill on December 05, 2017 and states that she was possibly septic. She was placed on antibiotics. She took antibiotics for 10 days. After her antibiotic treatment , she had increased pain in bilateral calf and posterior knee. Her PROCESSING ANALYST noted that sometimes the antibiotics she was on can cause tendon and tissue issues, which she believes in the cause of this pain. Pain is limiting her ability to walk for exercise as well as going up/down a flight of stairs. Treatment Goals Patient/Caregiver Goals decrease pain, improve mobility Prior Functional Status Baseline Function- Gait community ambulation without device Baseline Function- Work/School no limitations Baseline Function- Recreation/Hobbies walking outdoors Current Functional Impairments (Reported) Functional Limitations- Recreation/ uanble to walk outdoors for Hobbies exercise PT-OP-C Subjective Start: 01/26/18 15:58 Freq: Status: Active Protocol: Document 05/04/18 15:10 RCC (Rec: 05/04/18 15:18 RCC [email or web address]) OP-PT Subjective Patient Comments Patient Comments Pt reports she has been compliant with HEP, still having some calf pain bilaterally. PT-OP-F Manual Assessment Start: 01/26/18 15:58 Freq: Status: Active Protocol: Document 05/04/18 15:10 RCC (Rec: 05/04/18 15:18 RCC [email or web address]) Manual Assessments Soft Tissue Assessment Soft Tissue Mobility Assessment Mod tension R medial gastroc, mild tension L lateral and medial gastroc PT-OP-G Mobility & Gait Start: 01/26/18 15:58 Freq: Status: Active Protocol: Document 04/14/18 14:30 HH (Rec: 04/14/18 16:01 HH [email or web address]) OP Gait Assessment Comments Gait Comments No antalgic gait noted. PT-OP-H Neuro Start: 01/26/18 15:58 Freq: Status: Active Protocol: Document 01/26/18 15:15 RCC (Rec: 01/30/18 13:02 RCC [email or web address]) Sensation Evaluation Gross Sensation Gross Sensation WNL Deep Tendon Reflex & Clonus Assessment Deep Tendon Reflex Bilateral Achilles Deep Tendon Reflex 2+ Normal Bilateral Patellar Deep Tendon Reflex 2+ Normal PT-OP-K Range of Motion Start: 01/26/18 15:58 Freq: Status: Active Protocol: Document 04/14/18 14:30 HH (Rec: 04/14/18 16:01 [email or web address]) Ankle and Foot Goniometric Range of Motion Ankle and Foot Measured in Degrees Right Passive Dorsiflexion with Knee Flexed 20 Dorsiflexion with Knee Extended 18 Left Passive Dorsiflexion with Knee Flexed 18 Dorsiflexion with Knee Extended 16 Right Active Ankle/Foot ROM WFL No Dorsiflexion with Knee Flexed 16 Dorsiflexion with Knee Extended 12 Plantarflexion 55 Left Active Ankle/Foot ROM WFL No Dorsiflexion with Knee Flexed 12 Dorsiflexion with Knee Extended 6 Plantarflexion 50 PT-OP-L Special Tests Start: 01/26/18 15:58 Freq: Status: Active Protocol: Document 04/14/18 14:30 HH (Rec: 04/14/18 16:01 [email or web address]) Special Tests Foot/Ankle Special Tests Patton Test Results negative bilaterally PT-OP-M Strength Start: 01/26/18 15:58 Freq: Status: Active Protocol: Document 04/14/18 14:30 HH (Rec: 04/14/18 16:01 [email or web address]) Ankle/Foot Strength Ankle and Foot Manual Muscle Testing Right Dorsiflexion (L4) 5 Normal Plantarflexion (S1) 4+ Good+ Left Dorsiflexion (L4) 5 Normal Plantarflexion (S1) 4+ Good+ PT-OP-Q Treatments Start: 01/26/18 15:58 Freq: Status: Active Protocol: Document 05/04/18 15:10 [facility] (Rec: 05/04/18 15:18 [facility] [email or web address]) Therapeutic Exercises Standing Exercises gastroc/soleus strech Standing Exercise Name gastroc/soleus stretch Side bilateral Equipment Used THAI Reps/Minutes 3x30 sec Manual Therapy Treatment Soft Tissue Mobilization 2 Body Location B gastroc & soleus Mobilization Type Myofascial Release Rolling Intensity/Depth Moderate Body Position Prone 1 Body Location L achilles Mobilization Type Cross-Friction Intensity/Depth Moderate Body Position Prone Other Other Manual Treatments self STR with the stick - B gastroc/soleus, achilles, IT band PT-OP-T Assessment and Plan Start: 01/26/18 15:58 Freq: Status: Active Protocol: Document 05/04/18 15:10 [facility] (Rec: 05/04/18 15:18 [facility] [email or web address]) Physical Therapy Assessment Assessment Summary Assessment Pt with improved L lateral gastroc tension to mild today, but increased tension noted in R medial gastroc. Pt reports compliance with HEP, but is still requiring significant manual therapy to assist with controlling her muscular tension. Physical Therapy Plan Frequency and Duration Frequency of Treatment 2x/Week Duration of Treatment 8 weeks Plan of Care Start Date 04/14/18 Plan of Care End Date 06/08/17 Next Visit Focus/Plan Next Note Type Treatment Note Next Visit Plan progress hip strengthening, review nerve glides.
--- NOTE | 2018-05-06 15:13 | PT.OTN ---
Current Diagnoses Achilles tendinitis, right leg (05/06/18) Achilles tendinitis, left leg (05/06/18) Physical Therapy Treatment Note PT-OP-A Visit Information Start: 01/26/18 15:58 Freq: Status: Active Protocol: Document 05/06/18 15:13 RCC (Rec: 05/07/18 13:04 RCC [email or web address]) Out-Patient Physical Therapy Visit Information Visit Information Visit Type Treatment Note Visit Start Time 14:30 Visit Stop Time 15:13 Total Visit Minutes 43 Visit Number 8/12 Number of GRINDER SET UP OPERATOR CENTERLESS Visits 0 Evaluation Information Evaluation Date 01/26/18 PT-OP-B Current Condition Start: 01/26/18 15:58 Freq: Status: Active Protocol: Document 01/26/18 15:15 RCC (Rec: 01/30/18 13:02 RCC [email or web address]) Current Condition History of Current Condition Onset Date Dec 2017 Current Complaints B heel and calf pain, tightness History of Current Condition Pt is a 47 y/o female presenting to physical therapy with a c/o bilateral calf and achilles pain and tension. Pt was ill on December 05, 2017 and states that she was possibly septic. She was placed on antibiotics. She took antibiotics for 10 days. After her antibiotic treatment , she had increased pain in bilateral calf and posterior knee. Her FINANCIAL SERVICES REPRESENTATIVE noted that sometimes the antibiotics she was on can cause tendon and tissue issues, which she believes in the cause of this pain. Pain is limiting her ability to walk for exercise as well as going up/down a flight of stairs. Treatment Goals Patient/Caregiver Goals decrease pain, improve mobility Prior Functional Status Baseline Function- Gait community ambulation without device Baseline Function- Work/School no limitations Baseline Function- Recreation/Hobbies walking outdoors Current Functional Impairments (Reported) Functional Limitations- Recreation/ uanble to walk outdoors for Hobbies exercise PT-OP-C Subjective Start: 01/26/18 15:58 Freq: Status: Active Protocol: Document 05/06/18 15:13 RCC (Rec: 05/07/18 13:04 RCC [email or web address]) OP-PT Subjective Patient Comments Patient Comments Pt states her calves are still tight, she has had some R knee discomfort over the past day or so. PT-OP-F Manual Assessment Start: 01/26/18 15:58 Freq: Status: Active Protocol: Document 05/04/18 15:10 RCC (Rec: 05/04/18 15:18 RCC [email or web address]) Manual Assessments Soft Tissue Assessment Soft Tissue Mobility Assessment Mod tension R medial gastroc, mild tension L lateral and medial gastroc PT-OP-G Mobility & Gait Start: 01/26/18 15:58 Freq: Status: Active Protocol: Document 04/14/18 14:30 HH (Rec: 04/14/18 16:01 HH [email or web address]) OP Gait Assessment Comments Gait Comments No antalgic gait noted. PT-OP-H Neuro Start: 01/26/18 15:58 Freq: Status: Active Protocol: Document 01/26/18 15:15 RCC (Rec: 01/30/18 13:02 RCC [email or web address]) Sensation Evaluation Gross Sensation Gross Sensation WNL Deep Tendon Reflex & Clonus Assessment Deep Tendon Reflex Bilateral Achilles Deep Tendon Reflex 2+ Normal Bilateral Patellar Deep Tendon Reflex 2+ Normal PT-OP-K Range of Motion Start: 01/26/18 15:58 Freq: Status: Active Protocol: Document 04/14/18 14:30 HH (Rec: 04/14/18 16:01 [email or web address]) Ankle and Foot Goniometric Range of Motion Ankle and Foot Measured in Degrees Right Passive Dorsiflexion with Knee Flexed 20 Dorsiflexion with Knee Extended 18 Left Passive Dorsiflexion with Knee Flexed 18 Dorsiflexion with Knee Extended 16 Right Active Ankle/Foot ROM WFL No Dorsiflexion with Knee Flexed 16 Dorsiflexion with Knee Extended 12 Plantarflexion 55 Left Active Ankle/Foot ROM WFL No Dorsiflexion with Knee Flexed 12 Dorsiflexion with Knee Extended 6 Plantarflexion 50 PT-OP-L Special Tests Start: 01/26/18 15:58 Freq: Status: Active Protocol: Document 04/14/18 14:30 HH (Rec: 04/14/18 16:01 HH [email or web address]) Special Tests Foot/Ankle Special Tests Patton Test Results negative bilaterally PT-OP-M Strength Start: 01/26/18 15:58 Freq: Status: Active Protocol: Document 04/14/18 14:30 HH (Rec: 04/14/18 16:01 HH [email or web address]) Ankle/Foot Strength Ankle and Foot Manual Muscle Testing Right Dorsiflexion (L4) 5 Normal Plantarflexion (S1) 4+ Good+ Left Dorsiflexion (L4) 5 Normal Plantarflexion (S1) 4+ Good+ PT-OP-Q Treatments Start: 01/26/18 15:58 Freq: Status: Active Protocol: Document 05/06/18 15:13 RCC (Rec: 05/07/18 13:04 [facility] [email or web address]) Gym Equipment Shuttle Recovery Shuttle jumps Details bilateral and unilateral ( running) jumps Resistance 50 lbs Shuttle Recovery Platform Stable Reps/Time 10 jumps B, 30 jumps unilateral Unilateral Squats Resistance 50 Shuttle Recovery Platform Stable Reps/Time 10 reps Bilateral Squats Resistance 100 Shuttle Recovery Platform Stable Reps/Time 25 reps Therapeutic Exercises Standing Exercises gastroc/soleus strech Standing Exercise Name gastroc/soleus stretch Side bilateral Equipment Used THAI Reps/Minutes 3x30 sec Manual Therapy Treatment Soft Tissue Mobilization 2 Body Location B gastroc & soleus Mobilization Type Myofascial Release Rolling Trigger Point Release Intensity/Depth Moderate Body Position Prone 1 Body Location L achilles Mobilization Type Cross-Friction Intensity/Depth Moderate Body Position Prone PT-OP-T Assessment and Plan Start: 01/26/18 15:58 Freq: Status: Active Protocol: Document 05/06/18 15:13 [facility] (Rec: 05/07/18 13:04 [facility] [email or web address]) Physical Therapy Assessment Assessment Summary Assessment Pt apprehensive to perform light modified plyometrics on Shuttle Recovery today, but able to perform without c/o pain. Pt demonstrated good landing techniques with min cuing. She continues to have tension in bilateral gastroc/ soleus complex, but does appear to be improving slowly. Physical Therapy Plan Frequency and Duration Frequency of Treatment 2x/Week Duration of Treatment 8 weeks Plan of Care Start Date 04/14/18 Plan of Care End Date 06/08/17 Next Visit Focus/Plan Next Note Type Treatment Note Next Visit Plan cont. to advance toward running with light plyometrics and part-practice.
--- NOTE | 2018-05-11 15:15 | PT.OTN ---
Current Diagnoses Achilles tendinitis, right leg (05/11/18) Achilles tendinitis, left leg (05/11/18) Physical Therapy Treatment Note PT-OP-A Visit Information Start: 01/26/18 15:58 Freq: Status: Active Protocol: Document 05/11/18 15:15 RCC (Rec: 05/11/18 15:55 RCC [email or web address]) Out-Patient Physical Therapy Visit Information Visit Information Visit Type Treatment Note Visit Start Time 14:34 Visit Stop Time 15:15 Total Visit Minutes 42 Visit Number 12/29 Number of ELECTRICAL SOLDERER Visits 0 Evaluation Information Evaluation Date 01/26/18 PT-OP-B Current Condition Start: 01/26/18 15:58 Freq: Status: Active Protocol: Document 01/26/18 15:15 RCC (Rec: 01/30/18 13:02 RCC [email or web address]) Current Condition History of Current Condition Onset Date Dec 2017 Current Complaints B heel and calf pain, tightness History of Current Condition Pt is a 47 y/o female presenting to physical therapy with a c/o bilateral calf and achilles pain and tension. Pt was ill on December 05, 2017 and states that she was possibly septic. She was placed on antibiotics. She took antibiotics for 10 days. After her antibiotic treatment , she had increased pain in bilateral calf and posterior knee. Her INTERNATIONAL TRADE TEACHER noted that sometimes the antibiotics she was on can cause tendon and tissue issues, which she believes in the cause of this pain. Pain is limiting her ability to walk for exercise as well as going up/down a flight of stairs. Treatment Goals Patient/Caregiver Goals decrease pain, improve mobility Prior Functional Status Baseline Function- Gait community ambulation without device Baseline Function- Work/School no limitations Baseline Function- Recreation/Hobbies walking outdoors Current Functional Impairments (Reported) Functional Limitations- Recreation/ uanble to walk outdoors for Hobbies exercise PT-OP-C Subjective Start: 01/26/18 15:58 Freq: Status: Active Protocol: Document 05/11/18 15:15 RCC (Rec: 05/11/18 15:55 RCC [email or web address]) OP-PT Subjective Patient Comments Patient Comments Pt reports her calves are a little better this week, but still tight when walking. PT-OP-F Manual Assessment Start: 01/26/18 15:58 Freq: Status: Active Protocol: Document 05/04/18 15:10 RCC (Rec: 05/04/18 15:18 RCC [email or web address]) Manual Assessments Soft Tissue Assessment Soft Tissue Mobility Assessment Mod tension R medial gastroc, mild tension L lateral and medial gastroc PT-OP-G Mobility & Gait Start: 01/26/18 15:58 Freq: Status: Active Protocol: Document 04/14/18 14:30 HH (Rec: 04/14/18 16:01 HH [email or web address]) OP Gait Assessment Comments Gait Comments No antalgic gait noted. PT-OP-H Neuro Start: 01/26/18 15:58 Freq: Status: Active Protocol: Document 01/26/18 15:15 RCC (Rec: 01/30/18 13:02 RCC [email or web address]) Sensation Evaluation Gross Sensation Gross Sensation WNL Deep Tendon Reflex & Clonus Assessment Deep Tendon Reflex Bilateral Achilles Deep Tendon Reflex 2+ Normal Bilateral Patellar Deep Tendon Reflex 2+ Normal PT-OP-K Range of Motion Start: 01/26/18 15:58 Freq: Status: Active Protocol: Document 04/14/18 14:30 HH (Rec: 04/14/18 16:01 [email or web address]) Ankle and Foot Goniometric Range of Motion Ankle and Foot Measured in Degrees Right Passive Dorsiflexion with Knee Flexed 20 Dorsiflexion with Knee Extended 18 Left Passive Dorsiflexion with Knee Flexed 18 Dorsiflexion with Knee Extended 16 Right Active Ankle/Foot ROM WFL No Dorsiflexion with Knee Flexed 16 Dorsiflexion with Knee Extended 12 Plantarflexion 55 Left Active Ankle/Foot ROM WFL No Dorsiflexion with Knee Flexed 12 Dorsiflexion with Knee Extended 6 Plantarflexion 50 PT-OP-L Special Tests Start: 01/26/18 15:58 Freq: Status: Active Protocol: Document 04/14/18 14:30 HH (Rec: 04/14/18 16:01 HH [email or web address]) Special Tests Foot/Ankle Special Tests Patton Test Results negative bilaterally PT-OP-M Strength Start: 01/26/18 15:58 Freq: Status: Active Protocol: Document 04/14/18 14:30 HH (Rec: 04/14/18 16:01 HH [email or web address]) Ankle/Foot Strength Ankle and Foot Manual Muscle Testing Right Dorsiflexion (L4) 5 Normal Plantarflexion (S1) 4+ Good+ Left Dorsiflexion (L4) 5 Normal Plantarflexion (S1) 4+ Good+ PT-OP-Q Treatments Start: 01/26/18 15:58 Freq: Status: Active Protocol: Document 05/11/18 15:15 RCC (Rec: 05/11/18 15:55 RCC [email or web address]) Therapeutic Exercises Standing Exercises gastroc/soleus strech Standing Exercise Name gastroc/soleus stretch Side bilateral Equipment Used THAI Manual Therapy Treatment Soft Tissue Mobilization 2 Body Location B gastroc & soleus Mobilization Type Myofascial Release Rolling Trigger Point Release Intensity/Depth Moderate Body Position Prone 1 Body Location L achilles Mobilization Type Cross-Friction Intensity/Depth Moderate Body Position Prone PT-OP-T Assessment and Plan Start: 01/26/18 15:58 Freq: Status: Active Protocol: Document 05/11/18 15:15 RCC (Rec: 05/11/18 15:55 [facility] [email or web address]) Physical Therapy Assessment Assessment Summary Assessment Pt with R>L tension in gastroc /soleus today, L side with mild tension only which is improved since last week. Pt continues to have restrictions bilaterally, and not yet back to her prior level of function. Physical Therapy Plan Frequency and Duration Frequency of Treatment 2x/Week Duration of Treatment 8 weeks Plan of Care Start Date 04/14/18 Plan of Care End Date 06/08/17 Next Visit Focus/Plan Next Note Type Treatment Note Next Visit Plan light plyometrics, cont. gastroc/soleus stretching and manual therapy
--- NOTE | 2018-05-13 14:30 | PT.OTN ---
Current Diagnoses Achilles tendinitis, right leg (05/13/18) Achilles tendinitis, left leg (05/13/18) Physical Therapy Treatment Note PT-OP-A Visit Information Start: 01/26/18 15:58 Freq: Status: Active Protocol: Document 05/13/18 14:30 RCC (Rec: 05/14/18 13:58 RCC [email or web address]) Out-Patient Physical Therapy Visit Information Visit Information Visit Type Treatment Note Visit Start Time 14:30 Visit Stop Time 15:10 Total Visit Minutes 40 Visit Number 01/28 Number of FIRE PROTECTION INSPECTOR Visits 0 Evaluation Information Evaluation Date 01/26/18 PT-OP-B Current Condition Start: 01/26/18 15:58 Freq: Status: Active Protocol: Document 01/26/18 15:15 RCC (Rec: 01/30/18 13:02 RCC [email or web address]) Current Condition History of Current Condition Onset Date Dec 2017 Current Complaints B heel and calf pain, tightness History of Current Condition Pt is a 47 y/o female presenting to physical therapy with a c/o bilateral calf and achilles pain and tension. Pt was ill on December 05, 2017 and states that she was possibly septic. She was placed on antibiotics. She took antibiotics for 10 days. After her antibiotic treatment , she had increased pain in bilateral calf and posterior knee. Her FRAME ALIGNER noted that sometimes the antibiotics she was on can cause tendon and tissue issues, which she believes in the cause of this pain. Pain is limiting her ability to walk for exercise as well as going up/down a flight of stairs. Treatment Goals Patient/Caregiver Goals decrease pain, improve mobility Prior Functional Status Baseline Function- Gait community ambulation without device Baseline Function- Work/School no limitations Baseline Function- Recreation/Hobbies walking outdoors Current Functional Impairments (Reported) Functional Limitations- Recreation/ uanble to walk outdoors for Hobbies exercise PT-OP-C Subjective Start: 01/26/18 15:58 Freq: Status: Active Protocol: Document 05/13/18 14:30 RCC (Rec: 05/14/18 13:58 RCC [email or web address]) OP-PT Subjective Patient Comments Patient Comments Pt sore after previous session but no increased pain. PT-OP-F Manual Assessment Start: 01/26/18 15:58 Freq: Status: Active Protocol: Document 05/04/18 15:10 RCC (Rec: 05/04/18 15:18 RCC [email or web address]) Manual Assessments Soft Tissue Assessment Soft Tissue Mobility Assessment Mod tension R medial gastroc, mild tension L lateral and medial gastroc PT-OP-G Mobility & Gait Start: 01/26/18 15:58 Freq: Status: Active Protocol: Document 04/14/18 14:30 HH (Rec: 04/14/18 16:01 [email or web address]) OP Gait Assessment Comments Gait Comments No antalgic gait noted. PT-OP-H Neuro Start: 01/26/18 15:58 Freq: Status: Active Protocol: Document 01/26/18 15:15 RCC (Rec: 01/30/18 13:02 RCC [email or web address]) Sensation Evaluation Gross Sensation Gross Sensation WNL Deep Tendon Reflex & Clonus Assessment Deep Tendon Reflex Bilateral Achilles Deep Tendon Reflex 2+ Normal Bilateral Patellar Deep Tendon Reflex 2+ Normal PT-OP-K Range of Motion Start: 01/26/18 15:58 Freq: Status: Active Protocol: Document 04/14/18 14:30 HH (Rec: 04/14/18 16:01 [email or web address]) Ankle and Foot Goniometric Range of Motion Ankle and Foot Measured in Degrees Right Passive Dorsiflexion with Knee Flexed 20 Dorsiflexion with Knee Extended 18 Left Passive Dorsiflexion with Knee Flexed 18 Dorsiflexion with Knee Extended 16 Right Active Ankle/Foot ROM WFL No Dorsiflexion with Knee Flexed 16 Dorsiflexion with Knee Extended 12 Plantarflexion 55 Left Active Ankle/Foot ROM WFL No Dorsiflexion with Knee Flexed 12 Dorsiflexion with Knee Extended 6 Plantarflexion 50 PT-OP-L Special Tests Start: 01/26/18 15:58 Freq: Status: Active Protocol: Document 04/14/18 14:30 HH (Rec: 04/14/18 16:01 [email or web address]) Special Tests Foot/Ankle Special Tests Patton Test Results negative bilaterally PT-OP-M Strength Start: 01/26/18 15:58 Freq: Status: Active Protocol: Document 04/14/18 14:30 HH (Rec: 04/14/18 16:01 [email or web address]) Ankle/Foot Strength Ankle and Foot Manual Muscle Testing Right Dorsiflexion (L4) 5 Normal Plantarflexion (S1) 4+ Good+ Left Dorsiflexion (L4) 5 Normal Plantarflexion (S1) 4+ Good+ PT-OP-Q Treatments Start: 01/26/18 15:58 Freq: Status: Active Protocol: Document 05/13/18 14:30 RCC (Rec: 05/14/18 13:58 RCC [email or web address]) Gym Equipment Shuttle Recovery Shuttle jumps Details bilateral and unilateral ( running) jumps Resistance 50 lbs Shuttle Recovery Platform Stable Reps/Time 10 jumps B, 30 jumps unilateral Bilateral Squats Resistance 100 Shuttle Recovery Platform Stable Reps/Time 25 reps Therapeutic Exercises Standing Exercises gastroc/soleus strech Standing Exercise Name gastroc/soleus stretch Side bilateral Equipment Used THAI Manual Therapy Treatment Soft Tissue Mobilization 2 Body Location B gastroc & soleus Mobilization Type Myofascial Release Rolling Trigger Point Release Intensity/Depth Moderate Body Position Prone 1 Body Location L achilles Mobilization Type Cross-Friction Intensity/Depth Moderate Body Position Prone PT-OP-T Assessment and Plan Start: 01/26/18 15:58 Freq: Status: Active Protocol: Document 05/13/18 14:30 RCC (Rec: 05/14/18 13:58 [facility] [email or web address]) Physical Therapy Assessment Assessment Summary Assessment Pt apprehensive with Shuttle jumps (bilateral and unilateral) but no pain with this activity. Pt requires increased coaxing with light plyometrics and instructed on reasoning for progression of these exercises to return back to running. Physical Therapy Plan Frequency and Duration Frequency of Treatment 2x/Week Duration of Treatment 8 weeks Plan of Care Start Date 04/14/18 Plan of Care End Date 06/08/17 Next Visit Focus/Plan Next Note Type Treatment Note Next Visit Plan cont. to advance plyometrics as tolerated (light toward back to running).
--- NOTE | 2018-05-18 14:30 | PT.OTN ---
Current Diagnoses Achilles tendinitis, right leg (05/18/18) Achilles tendinitis, left leg (05/18/18) Physical Therapy Treatment Note PT-OP-A Visit Information Start: 01/26/18 15:58 Freq: Status: Active Protocol: Document 05/18/18 14:30 RCC (Rec: 05/18/18 17:55 RCC [email or web address]) Out-Patient Physical Therapy Visit Information Visit Information Visit Type Treatment Note Visit Start Time 14:30 Visit Stop Time 15:14 Total Visit Minutes 44 Visit Number 11/12 Number of RING MAKING MACHINE OPERATOR Visits 0 Evaluation Information Evaluation Date 01/26/18 PT-OP-B Current Condition Start: 01/26/18 15:58 Freq: Status: Active Protocol: Document 01/26/18 15:15 RCC (Rec: 01/30/18 13:02 RCC [email or web address]) Current Condition History of Current Condition Onset Date Dec 2017 Current Complaints B heel and calf pain, tightness History of Current Condition Pt is a 47 y/o female presenting to physical therapy with a c/o bilateral calf and achilles pain and tension. Pt was ill on December 05, 2017 and states that she was possibly septic. She was placed on antibiotics. She took antibiotics for 10 days. After her antibiotic treatment , she had increased pain in bilateral calf and posterior knee. Her ANALYTICS ASSOCIATE noted that sometimes the antibiotics she was on can cause tendon and tissue issues, which she believes in the cause of this pain. Pain is limiting her ability to walk for exercise as well as going up/down a flight of stairs. Treatment Goals Patient/Caregiver Goals decrease pain, improve mobility Prior Functional Status Baseline Function- Gait community ambulation without device Baseline Function- Work/School no limitations Baseline Function- Recreation/Hobbies walking outdoors Current Functional Impairments (Reported) Functional Limitations- Recreation/ uanble to walk outdoors for Hobbies exercise PT-OP-C Subjective Start: 01/26/18 15:58 Freq: Status: Active Protocol: Document 05/18/18 14:30 RCC (Rec: 05/18/18 17:55 RCC [email or web address]) OP-PT Subjective Patient Comments Patient Comments No new complaints. Pt was able to walk outdoors without pain . R knee still bothersome but no increased pain with increased activity. PT-OP-F Manual Assessment Start: 01/26/18 15:58 Freq: Status: Active Protocol: Document 05/04/18 15:10 RCC (Rec: 05/04/18 15:18 RCC [email or web address]) Manual Assessments Soft Tissue Assessment Soft Tissue Mobility Assessment Mod tension R medial gastroc, mild tension L lateral and medial gastroc PT-OP-G Mobility & Gait Start: 01/26/18 15:58 Freq: Status: Active Protocol: Document 04/14/18 14:30 HH (Rec: 04/14/18 16:01 HH [email or web address]) OP Gait Assessment Comments Gait Comments No antalgic gait noted. PT-OP-H Neuro Start: 01/26/18 15:58 Freq: Status: Active Protocol: Document 01/26/18 15:15 RCC (Rec: 01/30/18 13:02 RCC [email or web address]) Sensation Evaluation Gross Sensation Gross Sensation WNL Deep Tendon Reflex & Clonus Assessment Deep Tendon Reflex Bilateral Achilles Deep Tendon Reflex 2+ Normal Bilateral Patellar Deep Tendon Reflex 2+ Normal PT-OP-K Range of Motion Start: 01/26/18 15:58 Freq: Status: Active Protocol: Document 04/14/18 14:30 HH (Rec: 04/14/18 16:01 HH [email or web address]) Ankle and Foot Goniometric Range of Motion Ankle and Foot Measured in Degrees Right Passive Dorsiflexion with Knee Flexed 20 Dorsiflexion with Knee Extended 18 Left Passive Dorsiflexion with Knee Flexed 18 Dorsiflexion with Knee Extended 16 Right Active Ankle/Foot ROM WFL No Dorsiflexion with Knee Flexed 16 Dorsiflexion with Knee Extended 12 Plantarflexion 55 Left Active Ankle/Foot ROM WFL No Dorsiflexion with Knee Flexed 12 Dorsiflexion with Knee Extended 6 Plantarflexion 50 PT-OP-L Special Tests Start: 01/26/18 15:58 Freq: Status: Active Protocol: Document 04/14/18 14:30 HH (Rec: 04/14/18 16:01 HH [email or web address]) Special Tests Foot/Ankle Special Tests Patton Test Results negative bilaterally PT-OP-M Strength Start: 01/26/18 15:58 Freq: Status: Active Protocol: Document 04/14/18 14:30 HH (Rec: 04/14/18 16:01 HH [email or web address]) Ankle/Foot Strength Ankle and Foot Manual Muscle Testing Right Dorsiflexion (L4) 5 Normal Plantarflexion (S1) 4+ Good+ Left Dorsiflexion (L4) 5 Normal Plantarflexion (S1) 4+ Good+ PT-OP-Q Treatments Start: 01/26/18 15:58 Freq: Status: Active Protocol: Document 05/18/18 14:30 [facility] (Rec: 05/18/18 17:55 [facility] [email or web address]) Gym Equipment Shuttle Recovery Shuttle jumps Details bilateral and unilateral ( running) jumps Resistance 50 lbs Shuttle Recovery Platform Stable Reps/Time 10 jumps B, 30 jumps unilateral Therapeutic Exercises Standing Exercises HS stretch Side bilateral Equipment Used stairs gastroc/soleus strech Standing Exercise Name gastroc/soleus stretch Side bilateral Equipment Used THAI Manual Therapy Treatment Soft Tissue Mobilization 2 Body Location B gastroc & soleus Mobilization Type Myofascial Release Rolling Trigger Point Release Intensity/Depth Moderate Body Position Prone 1 Body Location L achilles Mobilization Type Cross-Friction Intensity/Depth Moderate Body Position Prone PT-OP-T Assessment and Plan Start: 01/26/18 15:58 Freq: Status: Active Protocol: Document 05/18/18 14:30 [facility] (Rec: 05/18/18 17:55 [facility] [email or web address]) Physical Therapy Assessment Assessment Summary Assessment Pt with tension in bilateral gastroc/soleus and hamstrings, but improving with tolerance to light plyometric training compared to previous session. R>L tension in gastroc, medial > lateral, but is still demonstrating improvements s/p manual therapy and stretching . Physical Therapy Plan Frequency and Duration Frequency of Treatment 2x/Week Duration of Treatment 8 weeks Plan of Care Start Date 04/14/18 Plan of Care End Date 06/08/17 Next Visit Focus/Plan Next Note Type Treatment Note Next Visit Plan advance toward return to running
--- NOTE | 2018-05-20 14:30 | PT.OTN ---
Current Diagnoses Achilles tendinitis, right leg (05/20/18) Achilles tendinitis, left leg (05/20/18) Physical Therapy Treatment Note PT-OP-A Visit Information Start: 01/26/18 15:58 Freq: Status: Active Protocol: Document 05/20/18 14:30 RCC (Rec: 05/20/18 15:14 RCC [email or web address]) Out-Patient Physical Therapy Visit Information Visit Information Visit Type Treatment Note Visit Start Time 14:30 Visit Stop Time 15:10 Total Visit Minutes 40 Visit Number 03/30 Number of PAINTER SPRAY Visits 0 Evaluation Information Evaluation Date 01/26/18 PT-OP-B Current Condition Start: 01/26/18 15:58 Freq: Status: Active Protocol: Document 01/26/18 15:15 RCC (Rec: 01/30/18 13:02 RCC [email or web address]) Current Condition History of Current Condition Onset Date Dec 2017 Current Complaints B heel and calf pain, tightness History of Current Condition Pt is a 47 y/o female presenting to physical therapy with a c/o bilateral calf and achilles pain and tension. Pt was ill on December 05, 2017 and states that she was possibly septic. She was placed on antibiotics. She took antibiotics for 10 days. After her antibiotic treatment , she had increased pain in bilateral calf and posterior knee. Her ITINERANT TEACHER ASSISTANT noted that sometimes the antibiotics she was on can cause tendon and tissue issues, which she believes in the cause of this pain. Pain is limiting her ability to walk for exercise as well as going up/down a flight of stairs. Treatment Goals Patient/Caregiver Goals decrease pain, improve mobility Prior Functional Status Baseline Function- Gait community ambulation without device Baseline Function- Work/School no limitations Baseline Function- Recreation/Hobbies walking outdoors Current Functional Impairments (Reported) Functional Limitations- Recreation/ uanble to walk outdoors for Hobbies exercise PT-OP-C Subjective Start: 01/26/18 15:58 Freq: Status: Active Protocol: Document 05/20/18 14:30 RCC (Rec: 05/20/18 15:14 RCC [email or web address]) OP-PT Subjective Patient Comments Patient Comments Pt had medial R calf cramping last night and continues to feel tight in the R knee throughout the day. PT-OP-F Manual Assessment Start: 01/26/18 15:58 Freq: Status: Active Protocol: Document 05/04/18 15:10 RCC (Rec: 05/04/18 15:18 RCC [email or web address]) Manual Assessments Soft Tissue Assessment Soft Tissue Mobility Assessment Mod tension R medial gastroc, mild tension L lateral and medial gastroc PT-OP-G Mobility & Gait Start: 01/26/18 15:58 Freq: Status: Active Protocol: Document 04/14/18 14:30 HH (Rec: 04/14/18 16:01 HH [email or web address]) OP Gait Assessment Comments Gait Comments No antalgic gait noted. PT-OP-H Neuro Start: 01/26/18 15:58 Freq: Status: Active Protocol: Document 01/26/18 15:15 RCC (Rec: 01/30/18 13:02 RCC [email or web address]) Sensation Evaluation Gross Sensation Gross Sensation WNL Deep Tendon Reflex & Clonus Assessment Deep Tendon Reflex Bilateral Achilles Deep Tendon Reflex 2+ Normal Bilateral Patellar Deep Tendon Reflex 2+ Normal PT-OP-K Range of Motion Start: 01/26/18 15:58 Freq: Status: Active Protocol: Document 04/14/18 14:30 HH (Rec: 04/14/18 16:01 [email or web address]) Ankle and Foot Goniometric Range of Motion Ankle and Foot Measured in Degrees Right Passive Dorsiflexion with Knee Flexed 20 Dorsiflexion with Knee Extended 18 Left Passive Dorsiflexion with Knee Flexed 18 Dorsiflexion with Knee Extended 16 Right Active Ankle/Foot ROM WFL No Dorsiflexion with Knee Flexed 16 Dorsiflexion with Knee Extended 12 Plantarflexion 55 Left Active Ankle/Foot ROM WFL No Dorsiflexion with Knee Flexed 12 Dorsiflexion with Knee Extended 6 Plantarflexion 50 PT-OP-L Special Tests Start: 01/26/18 15:58 Freq: Status: Active Protocol: Document 04/14/18 14:30 HH (Rec: 04/14/18 16:01 HH [email or web address]) Special Tests Foot/Ankle Special Tests Patton Test Results negative bilaterally PT-OP-M Strength Start: 01/26/18 15:58 Freq: Status: Active Protocol: Document 04/14/18 14:30 HH (Rec: 04/14/18 16:01 HH [email or web address]) Ankle/Foot Strength Ankle and Foot Manual Muscle Testing Right Dorsiflexion (L4) 5 Normal Plantarflexion (S1) 4+ Good+ Left Dorsiflexion (L4) 5 Normal Plantarflexion (S1) 4+ Good+ PT-OP-Q Treatments Start: 01/26/18 15:58 Freq: Status: Active Protocol: Document 05/20/18 14:30 RCC (Rec: 05/20/18 15:14 [facility] [email or web address]) Therapeutic Exercises Standing Exercises lunges Side bilateral Reps/Minutes 10 HS stretch Side bilateral Equipment Used stairs gastroc/soleus strech Standing Exercise Name gastroc/soleus stretch Side bilateral Equipment Used THAI Manual Therapy Treatment Soft Tissue Mobilization 2 Body Location B gastroc & soleus Mobilization Type Myofascial Release Rolling Trigger Point Release Intensity/Depth Moderate Body Position Prone 1 Body Location L achilles Mobilization Type Cross-Friction Intensity/Depth Moderate Body Position Prone PT-OP-T Assessment and Plan Start: 01/26/18 15:58 Freq: Status: Active Protocol: Document 05/20/18 14:30 [facility] (Rec: 05/20/18 15:14 [facility] [email or web address]) Physical Therapy Assessment Assessment Summary Assessment Pt with mild patellofemoral dysfunction on the R knee with full lunges, but able to correct with improved body mechanics and knee joint alignment (tends to fall into genu valgus). R medial calf continues to have the most tension, but does improve wtih manual therapy. Physical Therapy Plan Frequency and Duration Frequency of Treatment 2x/Week Duration of Treatment 8 weeks Plan of Care Start Date 04/14/18 Plan of Care End Date 06/08/17 Next Visit Focus/Plan Next Note Type Treatment Note Next Visit Plan R PF joint mobilizations if tolerable.
--- NOTE | 2018-09-22 14:09 | PT.OPDS ---
Current Diagnoses Achilles tendinitis, right leg (05/20/18) Achilles tendinitis, left leg (05/20/18) Provider Visit Care Team Role Provider Type Sagar Martin MD Attending Provider Physician Family Provider Primary Care Provider Specialty: Family Practice Address: [address] [place] [address], [facility] Email: [email or web address] Visit Number Visit Number 03/30 Discharge Summary PT-OP-B Current Condition Start: 01/26/18 15:58 Freq: Status: Active Protocol: Document 01/26/18 15:15 RCC (Rec: 01/30/18 13:02 RCC [email or web address]) Current Condition History of Current Condition Onset Date Dec 2017 Current Complaints B heel and calf pain, tightness History of Current Condition Pt is a 47 y/o female presenting to physical therapy with a c/o bilateral calf and achilles pain and tension. Pt was ill on December 05, 2017 and states that she was possibly septic. She was placed on antibiotics. She took antibiotics for 10 days. After her antibiotic treatment , she had increased pain in bilateral calf and posterior knee. Her COMMUNITY EDUCATOR noted that sometimes the antibiotics she was on can cause tendon and tissue issues, which she believes in the cause of this pain. Pain is limiting her ability to walk for exercise as well as going up/down a flight of stairs. Treatment Goals Patient/Caregiver Goals decrease pain, improve mobility Prior Functional Status Baseline Function- Gait community ambulation without device Baseline Function- Work/School no limitations Baseline Function- Recreation/Hobbies walking outdoors Current Functional Impairments (Reported) Functional Limitations- Recreation/ uanble to walk outdoors for Hobbies exercise PT-OP-F Manual Assessment Start: 01/26/18 15:58 Freq: Status: Active Protocol: Document 05/04/18 15:10 RCC (Rec: 05/04/18 15:18 RCC [email or web address]) Manual Assessments Soft Tissue Assessment Soft Tissue Mobility Assessment Mod tension R medial gastroc, mild tension L lateral and medial gastroc PT-OP-G Mobility & Gait Start: 01/26/18 15:58 Freq: Status: Active Protocol: Document 04/14/18 14:30 HH (Rec: 04/14/18 16:01 HH [email or web address]) OP Gait Assessment Comments Gait Comments No antalgic gait noted. PT-OP-H Neuro Start: 01/26/18 15:58 Freq: Status: Active Protocol: Document 01/26/18 15:15 RCC (Rec: 01/30/18 13:02 RCC [email or web address]) Sensation Evaluation Gross Sensation Gross Sensation WNL Deep Tendon Reflex & Clonus Assessment Deep Tendon Reflex Bilateral Achilles Deep Tendon Reflex 2+ Normal Bilateral Patellar Deep Tendon Reflex 2+ Normal PT-OP-K Range of Motion Start: 01/26/18 15:58 Freq: Status: Active Protocol: Document 04/14/18 14:30 HH (Rec: 04/14/18 16:01 HH [email or web address]) Ankle and Foot Goniometric Range of Motion Ankle and Foot Measured in Degrees Right Passive Dorsiflexion with Knee Flexed 20 Dorsiflexion with Knee Extended 18 Left Passive Dorsiflexion with Knee Flexed 18 Dorsiflexion with Knee Extended 16 Right Active Ankle/Foot ROM WFL No Dorsiflexion with Knee Flexed 16 Dorsiflexion with Knee Extended 12 Plantarflexion 55 Left Active Ankle/Foot ROM WFL No Dorsiflexion with Knee Flexed 12 Dorsiflexion with Knee Extended 6 Plantarflexion 50 PT-OP-L Special Tests Start: 01/26/18 15:58 Freq: Status: Active Protocol: Document 04/14/18 14:30 HH (Rec: 04/14/18 16:01 HH [email or web address]) Special Tests Foot/Ankle Special Tests Patton Test Results negative bilaterally PT-OP-M Strength Start: 01/26/18 15:58 Freq: Status: Active Protocol: Document 04/14/18 14:30 HH (Rec: 04/14/18 16:01 HH [email or web address]) Ankle/Foot Strength Ankle and Foot Manual Muscle Testing Right Dorsiflexion (L4) 5 Normal Plantarflexion (S1) 4+ Good+ Left Dorsiflexion (L4) 5 Normal Plantarflexion (S1) 4+ Good+ PT-OP-T Assessment and Plan Start: 01/26/18 15:58 Freq: Status: Active Protocol: Document 09/22/18 14:07 RCC (Rec: 09/22/18 14:09 RCC [email or web address]) Physical Therapy Assessment Assessment Summary Assessment Pt canceled her final 3 scheduled physical therapy sessions, and has not been seen since 05/20/18. Pt had made some to good progress with ROM and strength, but still not back to running at time of d/c from physical therapy. The pt's most recent plan of care on 06/08/2018, and will be d/c at this time due to failure to complete the most recent plan of care. Recommend she follow up with her PCP if symptoms remain and /or return. Physical Therapy Plan Discharge Physical Therapy Discharge Reasons No Longer Attending PT
== END 2018-09-23 09:44 | disposition home or self-care (01) ==
LOC: PHYS 14:30
PROVIDERS: Family Provider Family Medicine; PCP Family Medicine; Visit Provider Family Medicine
DX: M76.61 Achilles tendinitis, right leg (principal); M76.62 Achilles tendinitis, left leg
CPT/HCPCS: 97110; 97140; 97161; 97164

== ENCOUNTER → 2018-09-27 13:43 | Outpatient (CLI) | payer OTHER, SELFPAY ==
--- NOTE | 2018-09-27 14:24 | DI.MG.S_ITS ---
BILATERAL DIGITAL DIAGNOSTIC MAMMOGRAM 3D/2D: 09/27/2018 CLINICAL: Left breast pain. Comparison is made to exams dated: 10/23/2015 mammogram and 02/01/2006 mammogram - [facility]. The tissue of both breasts is heterogeneously dense. This may lower the sensitivity of mammography. There is an oval equal density mass with an obscured and circumscribed margin in the left breast at 1 o'clock posterior depth. No other significant masses, calcifications, or other findings are seen in either breast. IMPRESSION: INCOMPLETE: NEEDS ADDITIONAL IMAGING EVALUATION The oval equal density mass in the left breast is indeterminate. An ultrasound is recommended. There is no abnormality seen in the left breast to correspond with the pain in the upper outer quadrant, however, ultrasound is recommended. This exam was interpreted at Station ID: [id number]. NOTE: For mammograms, a report in lay terms will be sent to the patient. Approximately 15% of breast malignancies will not be visualized mammographically. In the management of a palpable breast mass, a negative mammogram must not discourage biopsy of a clinically suspicious lesion. Electronically Signed By: Rahat [email or web address]/[email or web address]:09/27/2018 15:20:14 ACR BI-RADS Category 0: Incomplete [id number]
--- NOTE | 2018-09-27 14:24 | DI.US.S_ITS ---
LIMITED ULTRASOUND OF LEFT BREAST: 09/27/2018 CLINICAL: Patient returns today to evaluate a focal asymmetry in the left breast. Focal pain. Comparison is made to exams dated: 09/27/2018 mammogram - [facility], 10/23/2015 mammogram, and 02/01/2006 mammogram - [facility]. Color flow and real-time ultrasound of the left breast upper outer quadrant were performed on the areas of interest. There is a benign 0.5 cm x 0.4 cm x 0.5 cm oval cyst with a smooth internal wall in the left breast at 1 o'clock posterior depth. This oval cyst is anechoic with a well-defined boundary and posterior acoustic enhancement. This correlates with mammography findings. Color flow imaging demonstrates that there is no vascularity present. There also is a benign 0.4 cm x 0.3 cm x 0.4 cm oval cyst in the left breast at 1 o'clock posterior depth. This oval cyst is anechoic with a well-defined boundary and posterior acoustic enhancement. Color flow imaging demonstrates that there is no vascularity present. IMPRESSION: BENIGN There is no sonographic evidence of malignancy. The 0.5 cm x 0.4 cm x 0.5 cm oval cyst in the left breast at 1 o'clock posterior depth is consistent with a simple cyst and is benign. The 0.4 cm x 0.3 cm x 0.4 cm oval cyst in the left breast at 1 o'clock posterior depth is consistent with a simple cyst and is benign. There is no abnormality seen in the left breast to correspond with the pain in the upper outer quadrant, however, clinical followup is recommended. A 1 year screening mammogram is recommended. This exam was interpreted at Station ID: [id number]. Electronically Signed By: Rahat Tristan M.D. dddalia/:09/27/2018 16:07:26 letter sent: Clinical Evaluation Ultrasound BI-RADS: 2 Benign
== END ==
PROVIDERS: Family Provider Family Medicine; PCP Family Medicine; Visit Provider Family Medicine
DX: R92.8 Other abnormal and inconclusive findings on diagnostic imaging of breast (principal); N60.02 Solitary cyst of left breast; N64.4 Mastodynia
CPT/HCPCS: 76642; 77066; G0279

== ENCOUNTER → 2018-12-27 15:12 | Outpatient (CLI) | payer OTHER, SELFPAY ==
--- NOTE | 2018-12-27 15:16 | DI.RAD.S_ITS ---
PROCEDURE: XR ANKLE RT MIN 3V INDICATIONS: Ankle pain TECHNIQUE: 3 views of the ankle were acquired. COMPARISON: None. FINDINGS: Bones: No fractures or dislocations. Ankle mortise is normally aligned. No suspicious bony lesions. Small plantar calcaneal bone spur. Incidental note of a small os trigonum. Soft tissues: No tibiotalar joint effusion. Achilles tendon appears normal. IMPRESSION: No fracture. No osseous lesion. If symptoms and/or clinical suspicion for pathology persists, further assessment with advanced imaging (e.g. CT, MRI or bone scan) may be helpful. Dictated by: Adriana Gonzalez MD, PhD on 12/27/2018 at 18:07 Approved by: Adriana Gonzalez MD, PhD on 12/27/2018 at 18:08
== END ==
PROVIDERS: PCP Family Medicine; Visit Provider Family Medicine
DX: M25.571 Pain in right ankle and joints of right foot (principal)
CPT/HCPCS: 73610

== ENCOUNTER → 2019-02-08 06:33 | Outpatient (CLI) | payer OTHER, SELFPAY ==
[2019-02-08 08:47] LABS: Hemoglobin A1C% w Est Avg Glu 6.1 % (4.0-6.0)
[2019-02-08 08:49] LABS: Blood Urea Nitrogen 12 mg/dL (7-17); Calcium 8.9 mg/dL (8.4-10.2); Carbon Dioxide 29 mmol/L (22-32); Chloride 100 mmol/L (98-107); Estimated Glomerular Filt Rate > 60.0 mL/min (>60); Glucose 125 mg/dL (70-100); HEMOLYSIS < 15 (0-50); Potassium 3.6 mmol/L (3.4-5.1); Sodium 138 mmol/L (137-145)
== END ==
PROVIDERS: PCP Family Medicine; Visit Provider Family Medicine
DX: R73.9 Hyperglycemia, unspecified (principal)
CPT/HCPCS: 36415; 80048; 83036

== ENCOUNTER → 2019-02-15 07:17 | Outpatient (CLI) | payer OTHER, SELFPAY ==
[2019-02-15 08:20] LABS: Cholesterol 237 mg/dL (140-199); HDL Cholesterol 35 mg/dL (40-60); LDL Cholesterol Calculated 173 mg/dL (<100); Triglycerides 144 mg/dL (35-150)
== END ==
PROVIDERS: PCP Family Medicine; Visit Provider Family Medicine
DX: I10 Essential (primary) hypertension (principal)
CPT/HCPCS: 36415; 80061

== ENCOUNTER → 2019-02-16 14:11 | Outpatient (CLI) | payer OTHER, SELFPAY ==
--- NOTE | 2019-02-16 14:28 | DI.MRI.S_ITS ---
PROCEDURE: MR ANKLE RT WO CON INDICATIONS: Pain TECHNIQUE: Noncontrast sagittal T1 spin echo and T2 fast spin echo with fat saturation, axial proton density fast spin echo and T2 fast spin echo with fat saturation, coronal T1 spin echo and T2 fast spin echo with fat saturation through the ankle/hindfoot. COMPARISON: None. FINDINGS: Image quality: Excellent. Bones and joints: No bone marrow contusions or fractures. No hindfoot coalitions. No osteochondral injuries of the talar dome. Subtalar and tibiotalar joint effusions. Medial structures: The posterior tibialis, flexor digitorum longus, and flexor hallucis longus tendons are intact. There is trace fluid adjacent to the posterior tibialis and flexor digitorum longus tendons in keeping with low-grade tenosynovitis. The posterior tibial neurovascular bundle appears normal within the tarsal tunnel, without extrinsic mass effect. The deep layer (anterior and posterior tibiotalar ligaments) and superficial layer (tibionavicular, tibiospring, and tibiocalcaneal ligaments) of the deltoid ligament appear normal. The spring ligament components (superomedial calcaneonavicular, medioplantar oblique calcaneonavicular, and inferoplantar longitudinal ligaments) are intact. Lateral structures: The anterior talofibular, calcaneofibular, and posterior talofibular ligaments appear intact. More superiorly, the anterior and posterior tibiofibular ligaments appear intact, as is the intermalleolar ligament. The tibiofibular syndesmosis is normal in width at 2 mm or less. Mild peroneus brevis tendinopathy and small longitudinal split tear. There is peroneal tenosynovitis Adjacent bony peroneal tubercle and retrotrochlear prominence are normal in size. The sinus tarsi demonstrates normal fatty signal, without edema, fibrosis, or cyst formation. Visualized sinus tarsi components (cervical ligament, interosseous talocalcaneal ligament, roots of the inferior extensor retinaculum) appear normal. The calcaneonavicular and calcaneocuboid components of the bifurcate ligament appear intact. The dorsal calcaneocuboid ligament appears intact. Anterior structures: The tibialis anterior, extensor hallucis longus, and extensor digitorum longus tendons appear intact. The dorsal talonavicular ligament appears intact. Posterior and plantar structures: Achilles tendon is intact. Mild medial band plantar fasciitis IMPRESSION: Peroneus brevis tendinopathy and small longitudinal split tear. Mild peroneal tenosynovitis. Mild posterior tibialis and flexor digitorum longus tenosynovitis. Mild medial band plantar fasciitis. Subtalar and tibiotalar joint effusions Dictated by: Richard Staton M.D. on 02/16/2019 at 17:07 Approved by: Richard Staton M.D. on 02/16/2019 at 17:13
== END ==
PROVIDERS: PCP Family Medicine; Visit Provider Family Medicine
DX: M25.571 Pain in right ankle and joints of right foot (principal); M65.871 Other synovitis and tenosynovitis, right ankle and foot; M72.2 Plantar fascial fibromatosis; M25.471 Effusion, right ankle
CPT/HCPCS: 73721

== ENCOUNTER → 2019-02-27 11:15 | Outpatient (CLI) | payer OTHER, SELFPAY | PROVIDERS: PCP Family Medicine | DX: Z23 Encounter for immunization (principal) | CPT/HCPCS: 90471; 90682 ==

== ENCOUNTER → 2019-05-30 05:42 | Outpatient (CLI) | payer OTHER, SELFPAY ==
[2019-05-30 08:40] LABS: Hemoglobin A1C% w Est Avg Glu 6.4 % (4.0-6.0)
[2019-05-30 09:03] LABS: BUN Creatinine Ratio 13.3 (6-22); Blood Urea Nitrogen 8 mg/dL (7-17); Calcium 9.4 mg/dL (8.4-10.2); Carbon Dioxide 33 mmol/L (22-32); Chloride 103 mmol/L (98-107); Cholesterol 191 mg/dL (140-199); Estimated Glomerular Filt Rate > 60.0 mL/min (>60); Glucose 134 mg/dL (70-100); HDL Cholesterol 29 mg/dL (40-60); HEMOLYSIS < 15 (0-50); LDL Cholesterol Calculated 115 mg/dL (<100); Potassium 3.8 mmol/L (3.4-5.1); Sodium 141 mmol/L (137-145); Triglycerides 233 mg/dL (35-150)
== END ==
PROVIDERS: PCP Family Medicine; Referring Provider Family Medicine; Visit Provider Family Medicine
DX: I10 Essential (primary) hypertension (principal)
CPT/HCPCS: 36415; 80048; 80061; 83036

== ENCOUNTER 2019-07-31 08:38 | Emergency (ER) | payer OTHER, SELFPAY ==
[2019-07-31 09:00] VITALS: BP 201/117; PULSE 79; RESP 16; TEMP 36.8; O2SAT 98
--- NOTE | 2019-07-31 09:15 | ED.GENADULT ---
HPI - General Adult General Chief complaint: Back Pain/Injury Stated complaint: lower back Time Seen by Provider: 07/31/19 08:53 Source: patient Mode of arrival: Ambulatory Limitations: no limitations History of Present Illness HPI narrative: 49-year-old female here for evaluation of bilateral however left greater than right low back pain. Patient states her symptoms started yesterday. She is unsure the exact event that made it happened but she thinks it may been when she picked up her grandchild. No bowel or bladder symptoms. No fevers. Has taken anti-inflammatories at home without any relief. Related Data Previous Rx's Medication Instructions Recorded atorvastatin 10 mg tablet 10 mg PO DAILY #90 tab 02/28/19 lisinopril 10 mg tablet 20 mg PO DAILY #180 tab 02/28/19 trazodone 50 mg tablet 50 mg PO BEDTIME #60 tab 05/31/19 acetaminophen-codeine 1 tab PO Q4-6H PRN #10 tab 07/31/19 [Tylenol-Codeine #3] cyclobenzaprine 10 mg PO TID PRN #12 tab 07/31/19 meloxicam [Mobic] 7.5 mg PO DAILY #60 tab 07/31/19 Allergies Allergy/AdvReac Type Severity Reaction Status Date / Time No Known Drug Allergies Allergy Verified 07/31/19 09:17 Review of Systems Constitutional Constitutional: Denies fever(s) Respiratory Respiratory: Denies cough Genitourinary Genitourinary: Denies dysuria Musculoskeletal Musculoskeletal: Reports back pain and Denies tingling Integumentary/Breasts Skin/Breast: Denies rash Neurologic Neurologic: Denies tingling and Denies paresthesias Patient History Medical History Anemia (Chronic) Asthma (Chronic ~2002) Chicken pox (Resolved ~1973) Fibroids (Chronic ~2015) GERD (gastroesophageal reflux disease) (Chronic ~2016) Hay fever (Chronic ~1999) Kidney stones (Chronic ~2016) Ovarian cyst (Chronic ~2015) Shoulder pain (Chronic) Social History Smoking Status: Never smoker Smoking Status: Never smoker alcohol intake frequency: 0-2 drinks per day Substance Use Type: does not use Exam Initial Vital Signs Initial Vital Signs: Vital Signs Temperature 98.2 F 07/31/19 09:00 Pulse Rate 79 07/31/19 09:00 Respiratory Rate 16 07/31/19 09:00 Blood Pressure 201/117 H 07/31/19 09:00 Pulse Oximetry 98 07/31/19 09:00 Const General: cooperative and comfortable Limitations: mental status not altered HENMT Head: normal to inspection and normocephalic Resp Effort & Inspection: normal respiratory effort Back/Spine/Pelvis Back: No CVA tenderness Thoracic/Lumbar Spine: paraspinal tenderness and No lumbar spinal tenderness Neuro General: alert and awake Course Orders Ordered: Ketorolac Tromethamine (Toradol) 30 mg IM NOW ONE Stop: 07/31/19 09:16 Vital Signs Vital signs: Vital Signs - 8 hr 07/31/19 09:00 Temperature 98.2 F Pulse Rate 79 Respiratory Rate 16 Blood Pressure 201/117 H Pulse Oximetry 98 Medical Decision Making MDM Narrative Medical decision making narrative: No fevers. Low suspicion for acute surgical issue. No specific trauma. We will hold on radiologic studies. Was given a shot of Toradol. Will send home with symptom treatment. She is given return precautions and follow-up instructions. She expressed understanding agreement. Discharge Plan Departure Patient Disposition: Home Clinical Impression: Strain of lumbar region Qualifiers: Encounter type: initial encounter Qualified Code(s): S39.012A - Strain of muscle, fascia and tendon of lower back, initial encounter Instructions: DI for Low Back Pain Activity Restrictions/Additional Instructions: Take the medications as directed. Contact your primary provider for follow-up. Return to the emergency department for any new or worsening symptoms Prescriptions: New meloxicam [Mobic] 7.5 mg tablet 7.5 mg PO DAILY Qty: 60 RF: 0 cyclobenzaprine 10 mg tablet 10 mg PO TID PRN (Reason: muscle spasm) Qty: 12 RF: 0 acetaminophen-codeine [Tylenol-Codeine #3] 300-30 mg tablet 1 tab PO Q4-6H PRN (Reason: pain) Qty: 10 RF: 0 No Action lisinopril 10 mg tablet 20 mg PO DAILY Qty: 180 RF: 3 atorvastatin 10 mg tablet 10 mg PO DAILY Qty: 90 RF: 3 trazodone 50 mg tablet 50 mg PO BEDTIME Qty: 60 RF: 5 Referrals: Sagar Martin MD [Primary Care Provider] -
[2019-07-31] MEDS: KETOROLAC 60 MG/2 ML VIAL 30 MG IM (09:27)
[2019-07-31 09:45] VITALS: BP 150/84; PULSE 60; RESP 16; O2SAT 100
== END 2019-07-31 09:47 | disposition home or self-care (01) ==
PROVIDERS: Emergency Provider Emergency Medicine; PCP Family Medicine
DX: S39.012A Strain of muscle, fascia and tendon of lower back, initial encounter (principal)
CPT/HCPCS: 96372; 99283; J1885

== ENCOUNTER → 2019-10-02 06:36 | Outpatient (CLI) | payer OTHER, SELFPAY ==
[2019-10-02 08:58] LABS: Hemoglobin A1C% w Est Avg Glu 6.5 % (4.0-6.0)
[2019-10-02 09:01] LABS: BUN Creatinine Ratio 17.9 (6-22); Blood Urea Nitrogen 10 mg/dL (7-17); Carbon Dioxide 25 mmol/L (22-32); Chloride 105 mmol/L (98-107); Estimated Glomerular Filt Rate > 60.0 mL/min (>60); Glucose 129 mg/dL (70-100); HEMOLYSIS < 15 (0-50); Potassium 3.9 mmol/L (3.4-5.1); Sodium 138 mmol/L (137-145)
== END ==
PROVIDERS: PCP Family Medicine; Referring Provider Family Medicine; Visit Provider Family Medicine
DX: R73.9 Hyperglycemia, unspecified (principal); I10 Essential (primary) hypertension
CPT/HCPCS: 36415; 80048; 83036

== ENCOUNTER → 2019-12-27 11:50 | Outpatient (CLI) | payer OTHER, SELFPAY ==
[2019-12-27 15:13] LABS: BUN Creatinine Ratio 15.6 (6-22); Blood Urea Nitrogen 10 mg/dL (7-17); Calcium 9.8 mg/dL (8.4-10.2); Carbon Dioxide 33 mmol/L (22-32); Chloride 101 mmol/L (98-107); Estimated Glomerular Filt Rate > 60.0 mL/min (>60); Glucose 106 mg/dL (70-100); HEMOLYSIS < 15 (0-50); Potassium 4.8 mmol/L (3.4-5.1); Sodium 138 mmol/L (137-145)
[2019-12-27 15:18] LABS: Hemoglobin A1C% w Est Avg Glu 6.6 % (4.0-6.0)
== END ==
PROVIDERS: PCP Family Medicine; Referring Provider Family Medicine; Visit Provider Family Medicine
DX: I10 Essential (primary) hypertension (principal); E11.9 Type 2 diabetes mellitus without complications
CPT/HCPCS: 36415; 80048; 83036

== ENCOUNTER → 2020-01-04 13:13 | Outpatient (CLI) | payer OTHER, SELFPAY ==
--- NOTE | 2020-01-04 13:24 | DI.RAD.S_ITS ---
PROCEDURE: FL UPPER GI W AIR INDICATIONS: Reflux COMPARISON: None. FINDINGS: KUB: Preprocedural hotel casino floorperson film demonstrates a normal bowel gas pattern. No suspicious abdominal calcifications. Visualized solid organ contours appear normal. Bony structures appear unremarkable. Esophagus: Esophageal mucosa is normal on air-contrast views. Mild esophageal dysmotility No strictures, extrinsic mass effects, or diverticula. No hiatal hernia . Spontaneous gastroesophageal reflux observed to the level of the middle 3rd of the esophagus. Stomach: The stomach is normally distensible, with normal rugal fold thickness. No mucosal masses or ulcers. Pylorus and duodenal bulb appear normal in morphology. Duodenal folds are normal in thickness as well. IMPRESSION: Gastroesophageal reflux. Dictated by: Richard Staton M.D. on 01/04/2020 at 16:07 Approved by: Richard Staton M.D. on 01/04/2020 at 16:10
== END ==
PROVIDERS: PCP Family Medicine; Referring Provider Family Medicine; Visit Provider Family Medicine
DX: K21.0 Gastro-esophageal reflux disease with esophagitis (principal)
CPT/HCPCS: 74246

== ENCOUNTER 2020-01-07 06:57 | Emergency (ER) | payer OTHER, SELFPAY ==
[2020-01-07] VITALS (8 sets, daily range): BP systolic 177–199; BP diastolic 91–108; PULSE 72–88; RESP 14–19; TEMP 36.8–36.9; O2SAT 96–100; BMI 32.9
--- NOTE | 2020-01-07 07:14 | ED.HA ---
HPI - Headache General Chief Complaint: Fever Stated Complaint: headache/ fever/ Time Seen by Provider: 01/07/20 07:00 Source: patient Mode of arrival: Ambulatory Limitations: no limitations History of Present Illness HPI Narrative: 49-year-old nonsmoker history of hypertension presents with a chief complaint fever, headache the past few days. She denies any focal neurologic findings such as blurred vision, trouble with speech or numbness, weakness or tingling of her extremities. She denies any neck pain or confusion. She denies runny nose, sneezing or cough but does have a bit of scratchy dry throat. Her symptoms seem to closely follow a recent barium swallow study which seemed to go pretty well. She denies any abdominal pain classic urinary complaints such as dysuria, frequency or urgency. She denies any vaginal bleeding or discharge. Her headache is generalized, moderate in intensity and has no classic provocation, palliation or radiation. MD Complaint: headache Onset (ago): day(s) Onset description: gradual Location: diffuse Severity: moderate Quality: aching Relieving factors: nothing Associated symptoms: fever Treatments prior to arrival: acetaminophen Related Data Home Medications Medication Instructions Recorded Confirmed amitriptyline 25 - 50 mg PO BEDTIME PRN 01/07/20 01/07/20 lisinopril 40 mg PO QAM 01/07/20 01/07/20 pantoprazole [Protonix] 40 mg PO QAM 01/07/20 01/07/20 Previous Rx's Medication Instructions Recorded cephalexin [Keflex] 500 mg PO QID 7 Days #28 cap 01/07/20 Allergies Allergy/AdvReac Type Severity Reaction Status Date / Time morphine AdvReac Severe Makes her Verified 01/07/20 07:21 sick Review of Systems Constitutional Constitutional: Denies chills, Denies fatigue, Reports fever(s), Denies frequent falls, Reports headache(s), Denies lethargy and Denies weakness Eyes Eyes: Denies change in vision, Denies eye discharge, Denies irritation and Denies loss of vision ENT Ears, Nose, Mouth, and Throat: Denies change in voice, Denies dizziness, Reports headache(s), Denies neck pain, Denies sore throat and Denies throat swelling Cardiovascular Cardiovascular: Denies chest pain, Denies irregular heart rhythm, Denies lightheadedness, Denies palpitations, Denies dyspnea, Denies dyspnea on exertion and Denies orthopnea Respiratory Respiratory: Denies cough, Denies dyspnea, Denies dyspnea on exertion and Denies wheezing Gastrointestinal Gastrointestinal: Denies abdominal pain, Denies change in bowel habits, Denies diarrhea, Denies nausea and Denies vomiting Musculoskeletal Musculoskeletal: Denies neck pain and Denies numbness Integumentary/Breasts Skin/Breast: Denies pruritus, Denies erythema, Denies rash and Denies wounds Neurologic Neurologic: Denies behavioral changes, Denies confusion, Denies dizziness, Denies frequent falls, Reports headache(s), Denies loss of vision, Denies numbness and Denies weakness Psychiatric Psychiatric: Denies anxiety, Denies behavioral changes, Denies confusion, Denies depression, Denies homicidal ideation and Denies suicidal ideation Endocrine Endocrine: Denies fatigue, Denies flushing and Denies palpitations Hematologic/Lymphatic Hematologic/Lymphatic: Denies easy bruising Allergic/Immunologic Allergic/Immunologic: Denies urticaria, Denies throat swelling and Denies wheezing Patient History Medical History Anemia (Chronic) Asthma (Chronic ~2002) Chicken pox (Resolved ~1973) Conjunctivitis (Acute) Fibroids (Chronic ~2015) GERD (gastroesophageal reflux disease) (Chronic ~2016) Hay fever (Chronic ~1999) Kidney stones (Chronic ~2016) Ovarian cyst (Chronic ~2015) Shoulder pain (Chronic) Surgical History Anesthesia (Resolved) Status post endometrial ablation (~01/2016) Family History Mother Age: 75 Heart disease Hypertension Diabetes mellitus Sister Age: 53 Heart disease Hypertension Mental health problem Diabetes mellitus Sister Age: 51 Heart disease Hypertension Father Cancer Grandmother Diabetes mellitus Social History Smoking Status: Never smoker Smoking Status: Never smoker alcohol intake frequency: 0-2 drinks per day Substance Use Type: does not use Exam Narrative Exam Narrative: GENERAL: [49] year old patient appears stated age. Well-nourished, well-developed patient, in mild distress. HEAD: Atraumatic. Normocephalic. EYES: Pupils equal round and reactive. Extraocular motions intact. No scleral icterus. No injection or drainage. ENT: Nose without bleeding, purulent drainage. Throat without erythema, tonsillar hypertrophy or exudate. Airway patent. NECK: Trachea midline. Non tender, no meningeal signs CARDIOVASCULAR: Regular rate and rhythm without murmurs, gallops, or rubs. RESPIRATORY: Clear to auscultation. Breath sounds equal bilaterally. No wheezes, rales, or rhonchi. GASTROINTESTINAL: Abdomen soft, non-tender, nondistended. EXTREMITIES: No edema or joint tenderness. BACK: Nontender without deformity or crepitance. No flank tenderness. NEURO: AOx3. SKIN: No rash or erythema of visible areas Initial Vital Signs Initial Vital Signs: Vital Signs Temperature 98.4 F 01/07/20 07:10 Pulse Rate 87 01/07/20 07:10 Respiratory Rate 18 01/07/20 07:10 Blood Pressure 195/108 H 01/07/20 07:10 Pulse Oximetry 98 01/07/20 07:10 Course Orders Ordered: ED Orders 01/07/20 07:40 Basic Metabolic Panel Stat C-Reactive Protein Quant Stat COVID19 -ED/INPAT/OR/L&D Stat NT-proBNP (BNP-Adult 18+) Stat Troponin & CK Cardiac Panel Stat 01/07/20 07:59 Blood Culture Stat Complete Blood Count AUTO DIFF Stat 01/07/20 08:58 Urine Culture Stat Urine Microscopic Stat Discontinued Medications Sodium Chloride (Normal Saline 0.9%) 1,000 mls @ 1,000 mls/hr IV BOLUS ONE Stop: 01/07/20 08:22 Last Infusion: 01/07/20 09:00 Dose: 0 mls/hr Documented by: Admin: 01/07/20 07:59 Dose: 1,000 mls/hr Documented by: STEPHEN Ketorolac Tromethamine (Toradol) 15 mg IV NOW ONE Stop: 01/07/20 07:24 Last Admin: 01/07/20 07:59 Dose: 15 mg Documented by: STEPHEN Vital Signs Vital signs: Vital Signs - 8 hr 01/07/20 07:10 01/07/20 07:16 01/07/20 07:22 Temperature 98.4 F Pulse Rate 87 82 Respiratory Rate 18 Blood Pressure 195/108 H 195/108 H Pulse Oximetry 98 97 01/07/20 07:30 01/07/20 08:00 01/07/20 08:30 Temperature Pulse Rate 82 85 72 Respiratory Rate 19 14 14 Blood Pressure 181/108 H 177/98 H Pulse Oximetry 96 96 98 01/07/20 09:08 01/07/20 10:14 Temperature 98.2 F Pulse Rate 80 88 Respiratory Rate 14 16 Blood Pressure 199/91 H 178/93 H Pulse Oximetry 100 100 MDM - Headache Lab Data Result diagrams: 01/07/20 07:59 01/07/20 07:40 Labs: Lab Results 01/07/20 01/07/20 01/07/20 Range/Units 07:40 07:40 07:40 WBC (4.5-11.0) X10^3/uL RBC (4.0-5.2) X10^6/uL Hgb (12.0-16.0) g/dL Hct (36-46) % MCV (80-100) fL MCH (26-34) PG MCHC (30-36) % RDW (11.6-14.8) % Plt Count (150-400) X10^3/uL Neut % (Auto) (50-75) % Lymph % (Auto) (25-40) % [place] % (Auto) (3-14) % Eos % (Auto) (2-4) % Baso % (Auto) (0-2) % Neut # (Auto) (7452-4959) /uL Lymph # (Auto) (9749-8335) /uL [place] # (Auto) (0-900) /uL Eos # (Auto) (0-450) /uL Baso # (Auto) (0-100) /uL Sodium 138 (137-145) mmol/L Potassium 3.7 (3.4-5.1) mmol/L Chloride 104 (98-107) mmol/L Carbon Dioxide 28 (22-32) mmol/L BUN 6 L (7-17) mg/dL Creatinine 0.46 L (0.52-1.04) mg/dL Estimated GFR > 60.0 (>60) mL/min BUN/Creatinine Ratio 13.0 (6-22) Glucose 147 H (70-100) mg/dL Calcium 8.8 (8.4-10.2) mg/dL Total Creatine Kinase 84 (30-135) U/L CK-MB (CK-2) TNP CK-MB (CK-2) Rel Index TNP Troponin I < 0.012 (0.01-0.034) ng/mL C-Reactive Protein 0.6 (<1.0) mg/dL NT-Pro-B Natriuret Pep 37 (<125) pg/mL Urine RBC (0-5/HPF) Urine WBC (0-5/HPF) Ur Squamous Epith Cells (0-5/HPF) Urine Bacteria (None) Ur Culture Indicated? COVID-19 PCR Negative (Negative) 01/07/20 01/07/20 Range/Units 07:59 08:58 WBC 5.8 (4.5-11.0) X10^3/uL RBC 4.67 (4.0-5.2) X10^6/uL Hgb 14.2 (12.0-16.0) g/dL Hct 42.1 (36-46) % MCV 90.2 (80-100) fL MCH 30.4 (26-34) PG MCHC 33.7 (30-36) % RDW 13.8 (11.6-14.8) % Plt Count 204 (150-400) X10^3/uL Neut % (Auto) 52.5 (50-75) % Lymph % (Auto) 39.0 (25-40) % [place] % (Auto) 5.9 (3-14) % Eos % (Auto) 1.8 L (2-4) % Baso % (Auto) 0.8 (0-2) % Neut # (Auto) 3 L (0513-9885) /uL Lymph # (Auto) 2 L (5054-8781) /uL [place] # (Auto) 0 (0-900) /uL Eos # (Auto) 0 (0-450) /uL Baso # (Auto) 0 (0-100) /uL Sodium (137-145) mmol/L Potassium (3.4-5.1) mmol/L Chloride (98-107) mmol/L Carbon Dioxide (22-32) mmol/L BUN (7-17) mg/dL Creatinine (0.52-1.04) mg/dL Estimated GFR (>60) mL/min BUN/Creatinine Ratio (6-22) Glucose (70-100) mg/dL Calcium (8.4-10.2) mg/dL Total Creatine Kinase (30-135) U/L CK-MB (CK-2) CK-MB (CK-2) Rel Index Troponin I (0.01-0.034) ng/mL C-Reactive Protein (<1.0) mg/dL NT-Pro-B Natriuret Pep (<125) pg/mL Urine RBC None seen (0-5/HPF) Urine WBC 5-10/hpf H (0-5/HPF) Ur Squamous Epith Cells 1-5 /hpf (0-5/HPF) Urine Bacteria Few (2-10) H (None) Ur Culture Indicated? Specimen cultured COVID-19 PCR (Negative) Urine Dip Bedside Urine Glucose Negative Bedside Urine Bilirubin - Negative Bedside Urine Ketone - Negative Urine Specific [place] 1.015 Bedside Urine Occult Blood - Negative Bedside Urine pH 7.0 Bedside Urine Protein - Negative Bedside Urine Urobilinogen - Negative Bedside Urine Nitrite - Negative Bedside Urine Leukocytes + 70 Esterase MDM Narrative Medical decision making narrative: Multiple etiologies for patient's symptoms considered including: [Coronavirus versus meningitis versus strep throat versus other. Bruce it swab is negative, no classic physical exam findings or typical complaints for strep throat. Her headache seems to improve when blood pressure dips below 170 and returned again when high. She did not take her medications this morning because she knew she was coming here. I did spend time with patient encouraging her to take her home medications.] Patient's symptoms improved over duration of stay with above-stated therapies. Findings and discharge diagnosis discussed with patient/family followed by verbalization of understanding Return precautions discussed with patient/family whom verbalize understanding. Discharge Plan Departure Patient Disposition: Home Clinical Impression: UTI (urinary tract infection) Qualifiers: Urinary tract infection type: site unspecified Hematuria presence: with hematuria Qualified Code(s): N39.0 - Urinary tract infection, site not specified HTN (hypertension) Qualifiers: Hypertension type: unspecified Qualified Code(s): I10 - Essential (primary) hypertension Discharge Date/Time: 01/07/20 10:14 Instructions: DI for Urinary Tract Infection (UTI) Activity Restrictions/Additional Instructions: *You have been diagnosed with [acute urinary tract infection blood pressure and headache] *What to do: *Take medications as directed *Follow up with your primary care provider in 2-3 days, call for an appointment. Let them know you were seen in the Emergency Department and that we ask that you be seen in follow up *Return to ER if you should have any new, worsening or concerning symptoms, such as [persistent fever, shaking chills, worsening pain, persistent vomiting or other bothersome symptoms] Prescriptions: New cephalexin [Keflex] 500 mg capsule 500 mg PO QID 7 Days Qty: 28 RF: 0 No Action lisinopril 20 mg tablet 40 mg PO QAM RF: 0 amitriptyline 25 mg tablet 25 - 50 mg PO BEDTIME PRN (Reason: sleep) RF: 0 pantoprazole [Protonix] 40 mg tablet,delayed release (DR/EC) 40 mg PO QAM RF: 0 Referrals: Sagar Martin MD [Primary Care Provider] - Stand Alone Forms: Work Release Note
[2020-01-07] MEDS: KETOROLAC 60 MG/2 ML VIAL 15 MG IV (07:59)
[2020-01-07] MEDS: SODIUM CHLORIDE 0.9% 1,000 ML 1000 ML IV (07:59)
[2020-01-07 08:00] LABS: Hematocrit 42.1 % (36-46); Hemoglobin 14.2 g/dL (12.0-16.0); Mean Corpuscular Hemoglobin 30.4 PG (26-34); Mean Corpuscular Volume 90.2 fL (80-100); Red Blood Cell Count 4.67 X10^6/uL (4.0-5.2); White Blood Cell Count 5.8 X10^3/uL (4.5-11.0)
[2020-01-07 08:01] LABS: Add Manual Diff / Slide Review NO; Basophils Absolute Auto 0 /uL (0-100); Basophils Percent Auto 0.8 % (0-2); Eosinophils Absolute Auto 0 /uL (0-450); Eosinophils Percent Auto 1.8 % (2-4); Lymphocytes Absolute Auto 2 /uL (1100-4500); Mean Corpuscular HGB Conc 33.7 % (30-36); Monocytes Absolute Auto 0 /uL (0-900); Monocytes Percent Auto 5.9 % (3-14); Neutrophils Absolute Auto 3 /uL (1500-7000); Neutrophils Percent Auto 52.5 % (50-75); Platelet Count 204 X10^3/uL (150-400); Red Cell Distribution Width 13.8 % (11.6-14.8)
[2020-01-07 08:07] LABS: Blood Urea Nitrogen 6 mg/dL (7-17); Calcium 8.8 mg/dL (8.4-10.2); Carbon Dioxide 28 mmol/L (22-32); Chloride 104 mmol/L (98-107); Estimated Glomerular Filt Rate > 60.0 mL/min (>60); Glucose 147 mg/dL (70-100); HEMOLYSIS < 15 (0-50); Potassium 3.7 mmol/L (3.4-5.1); Sodium 138 mmol/L (137-145)
[2020-01-07 08:11] LABS: C-Reactive Protein Quant 0.6 mg/dL (<1.0); Creatine Kinase 84 U/L (30-135)
[2020-01-07 08:20] LABS: NT-proBNP (BNP-Adult 18+) 37 pg/mL (<125); Troponin I < 0.012 ng/mL (0.01-0.034)
[2020-01-07 08:53] LABS: COVID19 -Nasal RAPID Negative (Negative)
[2020-01-07 09:14] LABS: RBC Urine None Seen (0-5/HPF)
--- NOTE | 2020-01-07 09:17 | PC.NURSE ---
Pt hypertensive 199/90, takes lisinopril 40mg q am po and lisinipril 20 mg po every afternoon. Dr Berkowitz notified and oked verbal order for pt to take home lisinopril her. Pt took at 0915. will continue to monitor vs.
[2020-01-07 09:25] LABS: Bacteria Urine Few (2-10); Culture Indicated Urine Specimen Cultured; Squamous Epithelial Cell Urine 1-5 /HPF (0-5/HPF); WBC Urine 5-10/HPF (0-5/HPF)
== END 2020-01-07 10:14 | disposition home or self-care (01) ==
PROVIDERS: Emergency Provider Emergency Medicine; PCP Family Medicine
DX: N39.0 Urinary tract infection, site not specified (principal); I10 Essential (primary) hypertension; R51 Headache; R50.9 Fever, unspecified
CPT/HCPCS: 36415; 80048; 81003; 81015; 82550; 83880; 84484; 85025; 86140; 87040; 87086; 87635; 96361; 96374; 99284; J1885

== ENCOUNTER → 2020-01-18 13:50 | Outpatient (CLI) | payer OTHER, SELFPAY | PROVIDERS: PCP Family Medicine; Referring Provider Internal Medicine; Visit Provider Internal Medicine | DX: Z23 Encounter for immunization (principal) | CPT/HCPCS: 90471; 90682 ==

== ENCOUNTER → 2020-03-05 12:00 | Outpatient (CLI) | payer OTHER, SELFPAY ==
[2020-03-05 12:48] LABS: COVID19 -Nasal RAPID Negative (Negative)
== END ==
PROVIDERS: PCP Family Medicine; Visit Provider Nurse Practitioner
DX: Z03.818 Encounter for observation for suspected exposure to other biological agents ruled out (principal)
CPT/HCPCS: 87635

== ENCOUNTER → 2020-04-24 09:42 | Outpatient (CLI) | payer OTHER, SELFPAY ==
[2020-04-24] MEDS: COVID-19 VACC(MODERNA-1)/PF 100 MCG/0.5 ML VIAL IM (09:45)
== END ==
PROVIDERS: PCP Family Medicine; Visit Provider Internal Medicine
DX: Z23 Encounter for immunization (principal)
CPT/HCPCS: 0011A; 91301

== ENCOUNTER → 2020-05-03 06:35 | Outpatient (CLI) | payer OTHER, SELFPAY ==
[2020-05-03 09:26] LABS: BUN Creatinine Ratio 14.5 (6-22); Blood Urea Nitrogen 8 mg/dL (7-17); Calcium 9.4 mg/dL (8.4-10.2); Carbon Dioxide 29 mmol/L (22-32); Chloride 107 mmol/L (98-107); Estimated Glomerular Filt Rate > 60.0 mL/min (>60); Glucose 163 mg/dL (70-100); HEMOLYSIS < 15 (0-50); Potassium 4.1 mmol/L (3.4-5.1); Sodium 140 mmol/L (137-145)
== END ==
PROVIDERS: PCP Family Medicine; Referring Provider Family Medicine; Visit Provider Family Medicine
DX: E11.9 Type 2 diabetes mellitus without complications (principal); I10 Essential (primary) hypertension
CPT/HCPCS: 36415; 80048; 83036

== ENCOUNTER → 2020-05-23 14:26 | Outpatient (CLI) | payer OTHER, SELFPAY ==
[2020-05-23] MEDS: COVID-19 VACC #2, MRNA(MOD) 100 MCG/0.5 ML VIAL IM (14:31)
== END ==
PROVIDERS: PCP Family Medicine; Visit Provider Internal Medicine
DX: Z23 Encounter for immunization (principal)
CPT/HCPCS: 0012A; 91301

== ENCOUNTER → 2020-10-17 14:22 | Outpatient (CLI) | payer OTHER, SELFPAY ==
--- NOTE | 2020-10-17 14:23 | DI.US.S_ITS ---
PROCEDURE: US PELVIC COMPLETE INDICATIONS: F/U LT OV CYST, INCREASED PAIN TECHNIQUE: Real-time scanning was performed of the pelvic organs, with image documentation. Additional endovaginal scanning was necessary due to incomplete visualization of the adnexal and endometrial structures by transabdominal scanning. COMPARISON: [facility], , US PELVIC COMPLETE, 01/26/2020, 14:44. FINDINGS: Uterus: Uterus is normal in size at 4.5 x 5.4 x 8.6 cm. Endometrial lining thickness measures up to 2.5 cm, raising concern for endometrial malignancy. There is indistinct margination along the borders of this area of abnormality. Note is made of 2 small uterine fibroids 1 on the right measuring 1.3 cm and 1 at the left paramedian posteriorly measuring up to 1.2 cm. Ovaries: The right ovary measures 2.2 x 1.2 x 1.7 cm, somewhat poorly visualized due to bowel gas. On the left there is a large cyst that enlarges the ovary measuring up to 6.6 x 6.6 x 6.1 cm. Other: No pathologic free abdominal or pelvic fluid. IMPRESSION: The dominant abnormality is presence of a masslike lesion within the endometrial space measuring up to 2.5 cm in maximal thickness. Endometrial malignancy is presumed, gynecological consultation has been obtained, biopsy is recommended. Note is made of a large left ovarian cyst, anechoic, without identified mural nodularity or thick septations within. Depending on the clinical status follow-up by CT or MR scanning may be warranted for further characterization and assessment for adenopathy.. Dictated by: Silas Rocha M.D. on 10/17/2020 at 16:51 Approved by: Silas Rocha M.D. on 10/17/2020 at 16:54
== END ==
PROVIDERS: PCP Family Medicine; Referring Provider Specialist; Visit Provider Specialist
DX: R93.89 Abnormal findings on diagnostic imaging of other specified body structures (principal); D25.9 Leiomyoma of uterus, unspecified; N83.202 Unspecified ovarian cyst, left side; R10.32 Left lower quadrant pain
CPT/HCPCS: 76830; 76856

== ENCOUNTER → 2021-01-22 13:34 | Outpatient (CLI) | payer OTHER, SELFPAY ==
--- NOTE | 2021-02-13 08:18 | P.HOLT.S_ITS ---
Manager Metal Report Referral & Results Date Patient Seen: 01/22/21 Requesting provider: Adis Givens Indication: Palpitations Duration of monitoring (days): 7 Diary information: There were 26 patient triggered events and 14 patient diary entries Patient triggered events were associated with (within 45 seconds) sinus rhythm, PVCs, and ventricular bigeminy Patient diary events were associated with (within 45 seconds) sinus rhythm and PVCs Data: Minimum heart rate identified was 56 beats per minute at 02:17 on 01/27/2021 Maximum heart rate was 132 beats per minute at 08:32 on 01/26/2021 Less than 1% of identified beats were ventricular or supraventricular ectopic in origin, which would classify them as rare. Impression: 7 day youth nutritional monitor demonstrating PVCs as a possible source of patient's symptoms of palpitations. No serious dysrhythmias were identified. Longest run of ventricular bigeminy not noted above is 3.8 seconds Clinical correlation suggested
== END ==
PROVIDERS: PCP Family Medicine; Referring Provider Family Medicine; Visit Provider Family Medicine
DX: R00.2 Palpitations (principal)
CPT/HCPCS: 93242; 93244

== ENCOUNTER → 2021-03-21 12:10 | Outpatient (CLI) | payer OTHER, SELFPAY | PROVIDERS: PCP Family Medicine; Referring Provider Internal Medicine; Visit Provider Internal Medicine | DX: Z23 Encounter for immunization (principal) | CPT/HCPCS: 90471; 90682 ==

== ENCOUNTER → 2021-04-01 11:01 | Outpatient (CLI) | payer OTHER, SELFPAY ==
[2021-04-01 11:54] LABS: COVID19 -Nasal RAPID Negative (Negative)
== END ==
PROVIDERS: PCP Family Medicine; Visit Provider Specialist
DX: Z01.812 Encounter for preprocedural laboratory examination (principal); Z20.822 Contact with and (suspected) exposure to COVID-19
CPT/HCPCS: 87635; C9803

== ENCOUNTER 2021-04-01 11:21 | Day surgery (SDC) | payer OTHER, SELFPAY ==
[2021-03-31 12:25] VITALS: BMI 35.4
== END 2021-04-01 11:25 | disposition home or self-care (01) ==
LOC: OR 11:23 → AC 12:15
PROVIDERS: PCP Family Medicine; Referring Provider Specialist; Visit Provider Specialist
DX: N92.0 Excessive and frequent menstruation with regular cycle (principal)

== ENCOUNTER → 2021-04-14 09:12 | Outpatient (CLI) | payer OTHER, SELFPAY ==
[2021-04-14 10:54] LABS: COVID19 -Nasal RAPID Negative (Negative)
== END ==
PROVIDERS: PCP Family Medicine; Visit Provider Physician Assistant
DX: Z20.822 Contact with and (suspected) exposure to COVID-19 (principal)
CPT/HCPCS: 87635

== ENCOUNTER 2021-04-15 08:09 | Day surgery (SDC) | payer OTHER, SELFPAY ==
[2021-04-09 14:17] VITALS: BMI 35.4
[2021-04-15] VITALS (18 sets, daily range): BP systolic 88–162; BP diastolic 50–102; PULSE 57–97; RESP 13–20; TEMP 35.9–36.7; O2SAT 84–99; BMI 35.4; BMI 36.3
--- NOTE | 2021-04-15 | PATH_ITS ---
Note [facility] Accession Number: [id number] TESTS RESULT FLAG UNITS REF RANGE LAB Clinician Provided Cytology Information No. of containers..01 Other (Miscellaneous) Source: PELVIC WASHINGS DIAGNOSIS: PELVIC WASHINGS NEGATIVE FOR MALIGNANT CELLS. MESOTHELIAL CELLS ARE PRESENT. THIS INTERPRETATION INCLUDES EVALUATION OF A CELL BLOCK. Pathologist ICD10: N73.9 Signed out by: Aline Freeman MD, Pathologist NPI- [id number] Performed by: Son Kingsley, Windows Application Developer ([facility]) Gross description: 10 CC, YELLOW, CLEAR RECEIVED: FRESH IN ORANGE CAP CONTAINER. /VDU 04/16/2021 0803 Local FLAG LEGEND: L-Low Normal,H-High Normal,LL-Alert Low,HH-Alert High <-Panic Low,>-Panic High,A-Abnormal,AA-Critical Abnormal Performed at: 01 =[facility] [address] [place] [address] [address], [place] [address] Rahat Quiros MD, Performed at: 01 [facility] [address], [place], [place] [id number] MD Rahat Quiros MD Phone: [phone]
[2021-04-15] MEDS: LACTATED RINGERS 1,000 ML 42 ML IV ×2 (09:00→11:07)
--- NOTE | 2021-04-15 09:34 | PM.PREOP ---
Pre-operative Note COVID-19 COVID-19 status: Negative Result date/Date tested (Pos, Neg/Pending): 04/14/21 Interval Note History & Physical reviewed/Exam performed by Physician: Yes Changes to H&P: No
--- NOTE | 2021-04-15 10:11 | SUR.PREOP ---
preop: Detective Investigator notified that patient requests no male PROFESSOR OF FORESTRY's on floor per Patient's request.
[2021-04-15] MEDS: CEFAZOLIN 2 GM/20 ML SYRINGE IV (10:25)
--- NOTE | 2021-04-15 10:54 | SUR.OPER ---
Lithotomy on padded OR bed. [place] Pad Positioner under torso. Head on pillow, arms padded and tucked at sides. Legs secured in padded yellow fins stirrups.
[2021-04-15] MEDS: BUPIVACAINE 0.5% W/ EPI (PF) 30 ML VIAL INJ (11:10)
[2021-04-15] MEDS: ROPIVACAINE 0.2% PF 2 MG/ML 10ML AMP 20 ML INJ (11:11)
--- NOTE | 2021-04-15 11:48 | SUR.OPER ---
patients cell phone placed in patients belongings bag in pre-op area prior to entering OR.
--- NOTE | 2021-04-15 11:50 | PM.OP.1 ---
Operative Date/Time/Diagnoses Date of procedure: 04/15/21 Time of procedure: 11:50 Pre-op diagnosis: Menorrhagia and left ovarian cyst with left pelvic pain Post-op diagnosis: same Procedure & Clinicians Procedure: Laparoscopic supracervical hysterectomy with bilateral salpingo oophorectomy and cell washings from the abdomen Same procedure as scheduled: Yes Indications: Menorrhagia with left ovarian cyst and left pelvic pain Surgeon: Rizwana Neal Dressing Room Attendant: Anita Kong Click Yes if Unassisted: No Anesthesia Type: General Operative Notes Findings: Large benign-appearing left ovarian cyst, normal appearing uterus, no endometriosis, no scar tissue, no internal hernias, normal liver edge, normal bowel surface Closure Type: primary Specimen(s): other (Uterus above the level of bladder and bilateral tubes and ovaries) Applied: catheter (Puckett) Estimated Blood Loss (mL): 20 Blood products transfused: none Procedure in detail: Patient is brought to the operating room where she underwent general anesthesia and placed in [facility]. She was prepped and draped in the usual sterile fashion. A check list was reviewed with the staff in the room prior to beginning of the case. Patient had pulsatile stockings in place and functional. 2 g of Ancef were in prior to beginning of the case.. A Puckett catheter was placed. A single-tooth tenaculum was placed on the anterior lip of the cervix and the cervix dilated to a #6 Hegar dilator. The uterine manipulator was placed through the cervix into the uterus with the balloon inflated with 3 mL of air. The area of the umbilical incision and the 5 mm right and left lower quadrant incisions were injected with Marcaine. An incision was made with scalpel. The verries needle was placed into the abdomen and confirmed in the appropriate place with withdrawal on a syringe and then free flow of fluid down through the needle. The abdomen was insufflated with CO2. The needle was removed and a 5 mm trocar placed without difficulty. There did not appear to be any damage is placement of the trocar. The right and left lower quadrant incisions were made with the scalpel and the trochars placed without damage to internal structures. The PK forceps were used to cauterize the infundibulopelvic ligaments. Sequential bites were taken along the broad ligament hugging the ovary followed by the round ligaments on both sides. Sequential bites were taken down the broad ligaments. The uterine arteries were cauterized. An incision was made above the level bladder pushing the bladder away from the cervix. The LORAINE loop was placed around the uterus and the uterus was amputated above the level of the bladder. Bleeding was controlled with the PK forceps. The Loraine loop had shifted up on the uterus so the Loraine loop was replaced around the cervical stump and a another section removed continue to stay above the bladder. PK forceps were used to cauterize in the endocervical canal. A supracervical incision was made and an 11 mm port placed. A 15 mm Endo Catch bag was placed in the abdomen. The uterus, the 2nd section of the uterus, tubes and ovaries were placed in the bag and brought up through the suprapubic port site. The Jose O was placed. The uterus was hand morselized. The ovarian cyst was drained of 180 cc of clear fluid allowing the ovary to be removed with the Endo-Catch bag. Abdomen was reinsufflated and adequate hemostasis was noted. 10 cc of ropivacaine was placed over the cervical stump. Trochars were removed and the CO2 allowed escape from the abdomen. The fascia layer of the suprapubic site was repaired with 0 Polysorb suture. Skin was closed with 4-0 Monocryl suture at the suprapubic site and the other 3 sites. The patient went to recovery room in good condition. Counts of instruments and sponges were correct. Dr. Kong was present throughout the case to assist with holding the camera, retracting, cauterizing and cutting the structures on the left side of the patient, as well as assisting with morselization of the uterus. Complications: none Post-operative Condition: stable Disposition: Acute Care Plan for aftercare: Patient admitted to acute care for observation. Likely home in a.m. if stable, tolerating regular diet, and ambulatory.
[2021-04-15] MEDS: OXYCODONE IR 5 MG TABLET PO ×2 (12:22→12:53)
[2021-04-15] MEDS: LACTATED RINGERS 1,000 ML 100 ML IV ×2 (12:54→22:07)
--- NOTE | 2021-04-15 15:19 | PC.NURSE ---
Pt arrived from PACU at 1644, she is alert but lethargic. Ox3. VSS, afebrile on RA. LS clear, diminished in bases. Abdomen soft and tender, Lap sites x4 C/D/I w/o drainage. Hypoactive BS, she is able to drink water well and juice. She reports she feels sore and rates abdominal pain a 5/10 about 30 mins after arrival from PACU. RN administered 5mg oxycodone and tylenol PRN, with good effect. Allowed patient to sleep. She is awakened and answering questions. She denies n/v. and denies needing pain medications. LR at 100 ml/hr, Puckett draining clear, yellow, no bleeding to maribel pad noted.
[2021-04-15] MEDS: KETOROLAC 30 MG/ML VIAL IV ×2 (16:16→22:03)
[2021-04-15] MEDS: DOCUSATE 100 MG CAPSULE 200 MG PO (20:19)
[2021-04-15] MEDS: lisinopriL 20 MG TABLET 40 MG PO (20:19)
[2021-04-16 00:30] VITALS: BP 127/79; PULSE 82; RESP 18; TEMP 36.4; O2SAT 96
[2021-04-16] MEDS: KETOROLAC 30 MG/ML VIAL IV ×2 (04:20→09:26)
[2021-04-16 05:00] VITALS: BP 146/83; PULSE 76; RESP 18; TEMP 36.2; O2SAT 99
[2021-04-16] MEDS: TRAMADOL 50 MG TABLET PO (06:47)
[2021-04-16 07:25] LABS: Add Manual Diff / Slide Review NO; Basophils Absolute Auto 0 /uL (0-100); Basophils Percent Auto 0.3 % (0-2); Eosinophils Absolute Auto 0 /uL (0-450); Hematocrit 38.2 % (36-46); Hemoglobin 12.6 g/dL (12.0-16.0); Lymphocytes Absolute Auto 2100 /uL (1100-4500); Lymphocytes Percent Auto 18.2 % (25-40); Mean Corpuscular Hemoglobin 29.2 PG (26-34); Mean Corpuscular Volume 88.3 fL (80-100); Monocytes Absolute Auto 700 /uL (0-900); Monocytes Percent Auto 5.8 % (3-14); Neutrophils Absolute Auto 8900 /uL (1500-7000); Neutrophils Percent Auto 75.7 % (50-75); Platelet Count 209 X10^3/uL (150-400); Red Blood Cell Count 4.33 X10^6/uL (4.0-5.2); Red Cell Distribution Width 13.4 % (11.6-14.8); White Blood Cell Count 11.8 X10^3/uL (4.5-11.0)
[2021-04-16 08:00] VITALS: O2SAT 98
[2021-04-16 08:33] VITALS: BP 174/101; PULSE 67; RESP 16; TEMP 36.8; O2SAT 98
[2021-04-16 09:26] VITALS: BP 174/101
[2021-04-16] MEDS: PANTOPRAZOLE DR 40 MG TABLET PO (09:26)
[2021-04-16] MEDS: lisinopriL 20 MG TABLET 40 MG PO (09:26)
[2021-04-16] MEDS: DOCUSATE 100 MG CAPSULE 200 MG PO (09:27)
--- NOTE | 2021-04-16 10:57 | PC.NURSE ---
Pt is dressed and ready for discharge home with Spouse. Prescriptions have been filled and picked up by Spouse. IV has been removed. Went over d/c instructions with Pt and Spouse-discussed d/c meds, time of last dose, reviewed stroke education, no heavy lifting, s/s of infection-when to call MD and follow up. encouraged Pt to drink plenty of fluids to prevent constipation or dehydration and no driving while on narcotics. Pt and Spouse denied further questions and were taken out via w/c by HUMAN SERVICE TECHNICIAN to POV with Spouse and all belongings.
--- NOTE | 2021-04-16 11:06 | CM.DANOTE ---
DCP Brief Assessment Note Patient is a 51 yo female who was admitted on 04/15/21 for OPB with OBGYN. Pt has REG [email or web address] and [employer] [facility] for insurance and her PCP is Dr. Carmine Griffiths. EMR was reviewed. Per OBGYN, pt tolerated procedure well and is ambulating independently, pain seems managed, and tolerating her diet and medically stable to d/c home today. Per RN, pt is ready and agreeable to d/c and hopeful to d/c home this morning and spouse plans to arrive to provide transport before lunch time. No concerns or identified barriers to d/c. 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 Plan: Patient to d/c home via spouse POV this morning and no SW needs at this time. ZAKIYA Hargrove
== END 2021-04-16 10:59 | disposition home or self-care (01) ==
LOC: OR 08:10 → AC 08:10
PROVIDERS: PCP Family Medicine; Referring Provider Specialist; Visit Provider Specialist
PROC: 0UT94ZL Resection of Uterus, Supracervical, Percutaneous Endoscopic Approach (ICD-10-PCS; principal; 2021-04-15 09:45)
DX: N92.0 Excessive and frequent menstruation with regular cycle (principal); N83.202 Unspecified ovarian cyst, left side; J45.909 Unspecified asthma, uncomplicated; I10 Essential (primary) hypertension; K21.9 Gastro-esophageal reflux disease without esophagitis; N73.9 Female pelvic inflammatory disease, unspecified
CPT/HCPCS: 58542; 36415; 82962; 85025; 94760; J0690; J1100; J1885; J2250; J2405; J2704; J2795; J3010

== ENCOUNTER → 2021-05-28 11:03 | Outpatient (CLI) | payer OTHER, SELFPAY ==
[2021-04-15 14:48] VITALS: BMI 36.3
--- NOTE | 2021-05-28 11:04 | DI.US.S_ITS ---
LIMITED ULTRASOUND OF LEFT BREAST AND AXILLA: 05/28/2021 CLINICAL: Palpable left breast lump. Comparison is made to exams dated: 05/28/2021 mammogram, 09/27/2018 mammogram, and 09/27/2018 [facility]. Color flow ultrasound of the left breast 9 o'clock, 11 o'clock, and axilla regions was performed. Hill scale images of the real-time examination were reviewed. There is a benign 3.6 cm x 3.4 cm x 2.1 cm oval mass with a circumscribed margin in the left breast at 11 o'clock posterior depth 15 cm from the nipple. This oval mass is isoechoic with posterior acoustic enhancement. This correlates as palpated. Color flow imaging demonstrates that there is no vascularity present. No significant abnormalities were seen sonographically in the left axilla. IMPRESSION: BENIGN There is no sonographic evidence of malignancy. The 3.6 cm x 3.4 cm x 2.1 cm oval mass in the left breast is consistent with a lipoma and is benign. There is no abnormality seen in the left breast to correspond with the pain at 9 o'clock, however, clinical followup is recommended. A 1 year screening mammogram is recommended. This exam was interpreted at Station ID: [id number]. Electronically Signed By: Tom garcia/khoi:05/28/2021 12:45:58 letter sent: Clinical Evaluation Ultrasound BI-RADS: 2 Benign
--- NOTE | 2021-05-28 11:04 | DI.MG.S_ITS ---
BILATERAL DIGITAL DIAGNOSTIC MAMMOGRAM 3D/2D: 05/28/2021 CLINICAL: Left breast lump. Comparison is made to exams dated: 09/27/2018 mammogram - [facility], 10/23/2015 mammogram, and 02/01/2006 mammogram - [facility]. There are scattered fibroglandular elements in both breasts. No significant masses, calcifications, or other findings are seen in either breast. IMPRESSION: INCOMPLETE: NEEDS ADDITIONAL IMAGING EVALUATION There is no abnormality seen in the left breast to correspond with the palpable abnormality in the upper inner quadrant, however, ultrasound is recommended. There is no abnormality seen in the left breast to correspond with the pain in the medial aspect, however, ultrasound is recommended. This exam was interpreted at Station ID: [id number]. NOTE: For mammograms, a report in lay terms will be sent to the patient. Approximately 15% of breast malignancies will not be visualized mammographically. In the management of a palpable breast mass, a negative mammogram must not discourage biopsy of a clinically suspicious lesion. Electronically Signed By: Tom garcia/khoi:05/28/2021 12:43:27 ACR BI-RADS Category 0: Incomplete [id number]
== END ==
PROVIDERS: PCP Family Medicine; Referring Provider Family Medicine; Visit Provider Family Medicine
DX: N63.22 Unspecified lump in the left breast, upper inner quadrant (principal); R92.2 Inconclusive mammogram
CPT/HCPCS: 76642; 77066; G0279

== ENCOUNTER → 2022-02-20 12:13 | Outpatient (CLI) | payer OTHER, SELFPAY ==
[2021-04-15 14:48] VITALS: BMI 36.3
== END ==
PROVIDERS: PCP Family Medicine; Referring Provider Internal Medicine; Visit Provider Internal Medicine
DX: Z23 Encounter for immunization (principal)
CPT/HCPCS: 90471; 90682

== ENCOUNTER 2022-07-06 06:37 | Day surgery (SDC) | payer OTHER, SELFPAY ==
[2022-05-12 10:46] VITALS: BMI 36.3
[2022-06-25 12:13] VITALS: BMI 35.8
--- NOTE | 2022-07-06 | PATH_ITS ---
[facility] Accession Number: [id number] No. of containers..01 Tissue . 01 Material submitted: . breast - LEFT BREAST MASS . 01 Diagnosis: A. Left Breast Mass, Excision: Mature fibroadipose tissue. Rare scattered minute foci of fat necrosis. Breast ducts and lobules are not present. . COMMENT: Clinical and radiographic correlation is necessary. MRV 07/09/2022 1613 Local . 01 Electronically signed: . Ayana Akhtar MD, Pathologist NPI- [id number] . 01 Gross description: . The specimen is received in formalin labeled with the patient's name, , and left breast mass, and consists of an unoriented yellow, lobulated soft tissue fragment measuring 4.3 x 3.0 x 2.5 cm and weighing 14 grams. The external surface is inked blue and the specimen is serially sectioned into eight 3 mm slices to reveal a yellow, homogenous, unremarkable cut surface with no discrete lesions or biopsy sites identified. No fibrous tissue is grossly identified. Bryologist sections are submitted as follows: A1: Bryologist slice 1, perpendicular. A2: Bryologist slice 3. A3: Bryologist slice 5. A4: Bryologist slice 7. A5: Bryologist slice 8, perpendicular. . The specimen was removed on 07/06/2022, time not provided, cold ischemic time cannot be calculated. Total fixation time is approximately 32 hours. ([id number]) /ARLEEN 07/07/2022 1034 Local . 01 Pathologist provided ICD-10: D17.1 . 01 CPT . 006574 Specimen Comment: A courtesy copy of this report has been sent to [phone] Performed at: 01 [facility] [address] [place] [address] [id number] MD Rahat Quiros MD Phone: [phone]
[2022-07-06 07:51] VITALS: BMI 35.8
[2022-07-06 08:01] VITALS: BP 150/88; PULSE 87; RESP 12; TEMP 36.4; O2SAT 99
[2022-07-06] MEDS: LACTATED RINGERS 1,000 ML 42 ML IV (08:10)
--- NOTE | 2022-07-06 08:27 | PM.HP.1 ---
History of Present Illness History of Present Illness Date Patient Seen: 07/06/22 Time Patient Seen: 08:27 [place] [facility] [place] Racquel is here for her excisional biopsy of the left breast mass. No change since her visit in May. 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 Chronic right-sided low back pain without sciatica Conjunctivitis Fibroids (~2015) GERD (gastroesophageal reflux disease) (~2016) Hay fever (~1999) Intermittent palpitations Kidney stones (~2016) Lipoma of anterior chest wall Lumbar region somatic dysfunction Migraine headache with aura Mixed hyperlipidemia Ovarian cyst (~2015) Pelvic somatic dysfunction Piriformis syndrome of right side [id number] condition Reflux esophagitis Right knee sprain Sacral region somatic dysfunction Screen for colon cancer Segmental and somatic dysfunction of abdomen and other regions Shoulder pain Somatic dysfunction of lower extremity Thoracic region somatic dysfunction Type 2 diabetes mellitus Weight loss counseling, encounter for Surgical History (Updated 06/25/22 @ 12:18 by Megan Morrison RN) Anesthesia H/O right knee surgery History of hysterectomy (04/15/21) Status post endometrial ablation (~01/2016) Family & Social History Family History Mother Age: 78 Heart disease Hypertension Diabetes mellitus Sister Age: 56 Heart disease Hypertension Mental health problem Diabetes mellitus Sister Age: 54 Heart disease Hypertension Father Cancer Grandmother Diabetes mellitus Social History: household members spouse Tobacco & Substance use: Smoking Status Never smoker alcohol intake current alcohol intake frequency 0-2 drinks per day Substance Use Type does not use Meds Home Medications and Allergies Home Medications Medication Instructions Recorded Confirmed Type lisinopril 20 mg tablet 40 mg PO BID #360 tabs 04/30/21 07/06/22 Rx pantoprazole 40 mg tablet,delayed 40 mg PO QAM #90 tabs 10/21/21 07/06/22 Rx release (Protonix) Allergies Allergy/AdvReac Type Severity Reaction Status Date / Time morphine AdvReac Severe Makes her Verified 07/06/22 07:51 sick oxycodone AdvReac Nausea Verified 07/06/22 07:51 Exam Vital Signs (past 8 hours): - 07/06/22 08:01 Temperature 97.5 F L Pulse Rate 87 Respiratory Rate 12 Blood Pressure 150/88 H Pulse Oximetry 99 Oxygen Delivery Method Room Air Oxygen Delivery Method Room Air Narrative Exam Narrative: There is a 3-4 cm left breast mass of the upper inner quadrant Assessment & Plan Assessment and plan (1) Lipoma of anterior chest wall: Status: Acute Plan Left breast mass of the upper inner quadrant, most likely lipoma. We discussed excisional biopsy and she would like to proceed Time Spent With Patient Critical Care time: I spent a total of [] minutes of critical care time on this patient's care today; this time is exclusive of procedural time.
--- NOTE | 2022-07-06 09:02 | SUR.OPER ---
Supine on padded OR bed, head on pillow, arms secured on padded arm boards at <90 degrees abduction, legs uncrossed, safety belt at thigh, tape over blanket over lower legs. Pt positioned per direction and supervision of Dr Douglas.
[2022-07-06] MEDS: LIDOCAINE 1% W/EPI 20 ML INJ (09:04)
[2022-07-06 09:29] VITALS: BP 119/85; PULSE 92; RESP 18; TEMP 36.3; O2SAT 92
[2022-07-06 09:34] VITALS: BP 126/85; PULSE 87; RESP 16; O2SAT 91
--- NOTE | 2022-07-06 09:34 | PM.OP.1 ---
Operative Date/Time/Diagnoses Date of procedure: 07/06/22 Time of procedure: 09:34 Pre-op diagnosis: Left breast lump Post-op diagnosis: same Procedure & Clinicians Procedure: Excisional biopsy of left breast lump Same procedure as scheduled: Yes Surgeon: Robert Douglas Operative Notes Procedure in detail: Anesthesia: Ta Lopez MD The patient was brought to the operating room and placed on the table in the supine position. The left arm was placed on an armboard. General anesthesia was induced via LMA. The left breast was prepped and draped in the usual fashion and a time-out was performed. Lidocaine with epinephrine was injected over mass. A 5 cm radial incision was made over the palpable mass. Dissection was carried down through the subcutaneous adipose tissue. The mass appeared to be a lipoma in the breast tissue abutting pectoral fascia. The mass was excised with cautery. The mass was roughly 4 cm in diameter. Additional local was injected into the deep tissue. Hemostasis was achieved with cautery. The wound was closed in layers using multiple interrupted 3-0 Vicryl dermal sutures and a running 4-0 Monocryl subcuticular closure. Steri-Strips and a dressing were applied. EBL: 5 mL Specimen: Left breast lipoma Post-operative Condition: stable Disposition: PACU
[2022-07-06 09:40] VITALS: BP 122/83; PULSE 81; RESP 16; O2SAT 96
[2022-07-06 09:45] VITALS: BP 122/80; PULSE 81; RESP 14; O2SAT 92
== END 2022-07-06 10:06 | disposition home or self-care (01) ==
PROVIDERS: PCP Family Medicine; Referring Provider Surgery; Visit Provider Surgery
PROC: (CPT 19120; principal; 2022-07-06 08:45)
DX: D17.1 Benign lipomatous neoplasm of skin and subcutaneous tissue of trunk (principal); N64.1 Fat necrosis of breast
CPT/HCPCS: 19120; J1100; J1885; J2250; J2405; J2704; J3010

== ENCOUNTER → 2022-08-19 06:13 | Outpatient (CLI) | payer OTHER, SELFPAY ==
[2022-05-12 10:46] VITALS: BMI 36.3
[2022-08-19 07:59] LABS: Add Manual Diff / Slide Review NO; Basophils Absolute Auto 0 /uL (0-100); Basophils Percent Auto 0.5 % (0-2); Eosinophils Absolute Auto 100 /uL (0-450); Eosinophils Percent Auto 1.1 % (2-4); Hematocrit 43.1 % (36-46); Hemoglobin 14.6 g/dL (12.0-16.0); Lymphocytes Absolute Auto 2600 /uL (1100-4500); Mean Corpuscular HGB Conc 33.9 % (30-36); Mean Corpuscular Hemoglobin 29.1 PG (26-34); Mean Corpuscular Volume 85.9 fL (80-100); Monocytes Absolute Auto 400 /uL (0-900); Monocytes Percent Auto 6.3 % (3-14); Neutrophils Absolute Auto 3100 /uL (1500-7000); Neutrophils Percent Auto 50.1 % (50-75); Platelet Count 167 X10^3/uL (150-400); Red Blood Cell Count 5.02 X10^6/uL (4.0-5.2); Red Cell Distribution Width 13.6 % (11.6-14.8); White Blood Cell Count 6.2 X10^3/uL (4.5-11.0)
[2022-08-19 08:22] LABS: Alanine Aminotransferase 62 IU/L (<35); Albumin Globulin Ratio 1.3 (1.0-2.8); Alkaline Phosphatase 149 U/L (38-126); Aspartate Aminotransferase 43 IU/L (14-36); BUN Creatinine Ratio 16.4 (6-22); Bilirubin Total 0.8 mg/dL (0.2-1.3); Blood Urea Nitrogen 9 mg/dL (7-17); Calcium 9.3 mg/dL (8.4-10.2); Carbon Dioxide 30 mmol/L (22-32); Chloride 100 mmol/L (98-107); Cholesterol 208 mg/dL (140-199); Estimated Glomerular Filt Rate > 60 mL/min (>60); Globulin 3.2 g/dL (1.7-4.1); Glucose 239 mg/dL (70-100); HDL Cholesterol 34 mg/dL (40-60); HEMOLYSIS < 15 (0-50); LDL Cholesterol Calculated 141 mg/dL (<100); Sodium 136 mmol/L (137-145); Total Protein 7.2 g/dL (6.3-8.2); Triglycerides 166 mg/dL (35-150)
[2022-08-19 08:55] LABS: TSH w/ Reflex to FT4 1.06 uIU/mL (0.47-4.68)
[2022-08-19 10:05] LABS: Creatinine Urine Random 46.9 mg/dL
[2022-08-19 10:12] LABS: Microalbumi Creatinin Ratio Ur 31.9 ug/mg CR (<30); Microalbumin Urine Random 1.5 mg/dL (0-1.6)
== END ==
PROVIDERS: PCP Family Medicine; Referring Provider Family Medicine; Visit Provider Family Medicine
DX: E11.9 Type 2 diabetes mellitus without complications (principal); E78.2 Mixed hyperlipidemia; E87.6 Hypokalemia; I10 Essential (primary) hypertension
CPT/HCPCS: 36415; 80053; 80061; 82043; 82570; 83036; 84443; 85025

== ENCOUNTER → 2022-09-30 08:05 | Outpatient (CLI) | payer OTHER, SELFPAY ==
[2022-05-12 10:46] VITALS: BMI 36.3
[2022-10-01 16:16] LABS: Fecal Immunochemical Test Negative (Negative)
== END ==
PROVIDERS: PCP Family Medicine; Referring Provider Family Medicine; Visit Provider Family Medicine
DX: Z12.11 Encounter for screening for malignant neoplasm of colon (principal)
CPT/HCPCS: 82274

== ENCOUNTER → 2022-12-17 06:44 | Outpatient (CLI) | payer OTHER, SELFPAY ==
[2022-05-12 10:46] VITALS: BMI 36.3
[2022-12-17 08:40] LABS: Hemoglobin A1C% w Est Avg Glu 7.3 % (4.0-6.0)
[2022-12-17 08:48] LABS: Alanine Aminotransferase 36 IU/L (<35); Albumin 4.2 g/dL (3.5-5.0); Albumin Globulin Ratio 1.4 (1.0-2.8); Alkaline Phosphatase 81 U/L (38-126); Aspartate Aminotransferase 32 IU/L (14-36); Bilirubin Total 0.5 mg/dL (0.2-1.3); Blood Urea Nitrogen 9 mg/dL (7-17); Calcium 9.7 mg/dL (8.4-10.2); Carbon Dioxide 25 mmol/L (22-32); Chloride 105 mmol/L (98-107); Estimated Glomerular Filt Rate > 60 mL/min (>60); Globulin 2.9 g/dL (1.7-4.1); Glucose 108 mg/dL (70-100); HEMOLYSIS < 15 (0-50); Potassium 4.2 mmol/L (3.4-5.1); Sodium 139 mmol/L (137-145); Total Protein 7.1 g/dL (6.3-8.2)
[2022-12-17 09:21] LABS: TSH w/ Reflex to FT4 1.04 uIU/mL (0.47-4.68)
== END ==
PROVIDERS: Family Medicine; PCP Family Medicine; Referring Provider Family Medicine; Visit Provider Family Medicine
DX: I10 Essential (primary) hypertension (principal); E66.9 Obesity, unspecified
CPT/HCPCS: 36415; 80053; 83036; 84443

== ENCOUNTER 2022-12-28 06:45 | Emergency (ER) | payer OTHER, SELFPAY ==
[2022-05-12 10:46] VITALS: BMI 36.3
[2022-12-28 06:50] VITALS: BP 146/82; PULSE 83; RESP 16; TEMP 37; O2SAT 100; BMI 70.5
[2022-12-28] MEDS: KETOROLAC 30 MG/ML VIAL IM (07:33)
--- NOTE | 2022-12-28 07:36 | ED.BACK ---
HPI - Back Pain/Injury General Chief Complaint: Back Pain/Injury Stated Complaint: needs a tordal shot Time Seen by Provider: 12/28/22 06:50 Source: patient History of Present Illness HPI Narrative: Patient 52-year-old female history of hypertension diabetes presenting today with a left lumbar pain. Reports that she was lifting her grandson many times and thinks that she strained it. She is taken Tylenol and ibuprofen she has some bsmx-efp-vzaspsf patches on which seem to be helping some but is requesting a Toradol shot. She is no numbness tingling or weakness in her leg no changes in bowel or bladder habits. Overall appears well. Related Data Previous Rx's Medication Instructions Recorded semaglutide 0.25 mg or 0.5 mg (2 0.5 mg (0.8 mL) SUBCUT QWEEK #12 mL 10/22/22 mg/3 mL) subcutaneous pen injector (Ozempic) blood-glucose sensor (Dexcom G6 #3 ea 12/17/22 Sensor device) empagliflozin 25 mg tablet 25 mg PO QAM #90 tabs 12/17/22 (Jardiance) lisinopril 40 mg tablet 40 mg PO BID #180 tabs 12/17/22 metformin 1,000 mg tablet 1,000 mg PO BID #180 tabs 12/17/22 pantoprazole 40 mg tablet,delayed 40 mg PO QAM #90 tabs 12/17/22 release (Protonix) rosuvastatin 10 mg tablet 10 mg PO DAILY #90 tabs 12/17/22 Allergies Allergy/AdvReac Type Severity Reaction Status Date / Time morphine AdvReac Severe Makes her Verified 09/25/22 14:48 sick oxycodone AdvReac Nausea Verified 09/25/22 14:48 Review of Systems Review of Systems ROS Unobtainable: All systems reviewed & are unremarkable except as noted in HPI and below 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 Chronic right-sided low back pain without sciatica Conjunctivitis Fibroids (~2015) GERD (gastroesophageal reflux disease) (~2016) Hay fever (~1999) Intermittent palpitations Kidney stones (~2017) Lipoma of anterior chest wall Lumbar region somatic dysfunction Migraine headache with aura Mixed hyperlipidemia Ovarian cyst (~2016) Pelvic somatic dysfunction Piriformis syndrome of right side [id number] condition Reflux esophagitis Right knee sprain Sacral region somatic dysfunction Screen for colon cancer Segmental and somatic dysfunction of abdomen and other regions Shoulder pain Somatic dysfunction of lower extremity Thoracic region somatic dysfunction Type 2 diabetes mellitus Weight loss counseling, encounter for Surgical History Anesthesia H/O right knee surgery History of hysterectomy (04/15/21) Status post endometrial ablation (~01/2016) Family History Mother Age: 78 Heart disease Hypertension Diabetes mellitus Sister Age: 56 Heart disease Hypertension Mental health problem Diabetes mellitus Sister Age: 54 Heart disease Hypertension Father Cancer Grandmother Diabetes mellitus Social History household members: spouse Smoking Status: Never smoker alcohol intake: current Smoking Status: Never smoker alcohol intake frequency: 0-2 drinks per day Substance Use Type: does not use Exam Initial Vital Signs Initial Vital Signs: Vital Signs Temperature 98.6 F 12/28/22 06:50 Pulse Rate 83 12/28/22 06:50 Respiratory Rate 16 12/28/22 06:50 Blood Pressure 146/82 H 12/28/22 06:50 Pulse Oximetry 100 12/28/22 06:50 Oxygen Delivery Method Room Air 12/28/22 06:50 GENERAL: Alert well-appearing 52-year-old female CARDIOVASCULAR: peripheral pulses in tact, cap refill <2 sec RESPIRATORY: No respiratory distress, speaks in full sentences without difficulty BACK: No vertebral tenderness no step-off left lower lumbar pain EXTREMITIES: Normal range of motion, no clubbing or edema. Neurovascularly intact NEUROLOGICAL: Cranial nerves II through XII grossly intact. Normal gait and speech. SKIN: Warm, dry, no petechiae, no rashes or lesions. Course Orders Ordered: Discontinued Medications Ketorolac Tromethamine (Ketorolac 30 Mg/Ml Vial) 30 mg IM NOW ONE Stop: 12/28/22 07:19 Last Admin: 12/28/22 07:33 Dose: 30 mg Documented By: RLS Vital Signs Vital signs: Vital Signs - 8 hr 12/28/22 06:50 Temperature 98.6 F Pulse Rate 83 Respiratory Rate 16 Blood Pressure 146/82 H Pulse Oximetry 100 Oxygen Delivery Method Room Air MDM - Back Pain/Injury MDM Narrative Medical decision making narrative: Patient 52-year-old female presenting with lumbar pain reproducible to palpation. No numbness tingling or weakness in lower extremity no cauda equina symptoms. Pain is very well-controlled with Tylenol and ibuprofen requesting Toradol shot which she received. She is offered muscle relaxer but declines at this time. Discharge Plan Departure Patient Disposition: Home Clinical Impression: Back pain Instructions: DI for Back Spasm Activity Restrictions/Additional Instructions: *You have been diagnosed with back pain *What to do: At this time increase activity as tolerated light stretching. Heating pad as needed. *Continue to take medications as directed Tylenol 1000 mg every 6 hours if needed for gvfa-ih-ntzgmtqz pain Motrin 600 mg every 6 hours if needed for scgj-mn-boptrbsg pain (weight 8 hours after Toradol shot) May try ngjt-bfr-yrdmyvq lidocaine patches leave on for 12 hours then remove *Follow up with your primary care provider in 2-3 days or call [phone] *Return to ER if you should have increasing pain numbness tingling weakness changes in bowel or bladder habit or any new, worsening or concerning symptoms Prescriptions: No Action Ozempic 0.25 mg or 0.5 mg (2 mg/3 mL) pen injector 0.5 mg SUBCUT QWEEK Qty: 12 3RF Rx Instructions: Please dispense a full 3 mo supply with 3 refills. 1 year total (DME) Dexcom G6 Sensor Device See Rx Instructions .Route Qty: 3 2RF Rx Instructions: Use to monitor blood sugars Jardiance 25 mg tablet 25 mg PO QAM Qty: 90 3RF Rx Instructions: 1/2 tabn in the AM for 6 d then 1 po qd HgA1C is 12 need improved glycemic control lisinopril 40 mg tablet 40 mg PO BID Qty: 180 3RF metformin 1,000 mg tablet 1,000 mg PO BID Qty: 180 3RF pantoprazole [Protonix] 40 mg tablet,delayed release (DR/EC) 40 mg PO QAM Qty: 90 1RF rosuvastatin 10 mg tablet 10 mg PO DAILY Qty: 90 3RF Referrals: Laureano Cisneros, [Primary Care Provider] - Stand Alone Forms: Patient Portal/API
== END 2022-12-28 07:48 | disposition home or self-care (01) ==
PROVIDERS: Emergency Provider Emergency Medicine; PCP Family Medicine
DX: M54.50 Low back pain, unspecified (principal); Z79.899 Other long term (current) drug therapy
CPT/HCPCS: 96372; 99283; J1885

== ENCOUNTER 2023-02-08 05:53 | Emergency (ER) | payer OTHER, SELFPAY ==
[2022-05-12 10:46] VITALS: BMI 36.3
[2023-02-08 05:54] VITALS: BP 190/104; PULSE 81; RESP 16; TEMP 36.9; O2SAT 98; BMI 32.0
--- NOTE | 2023-02-08 05:56 | ED_ITS ---
HPI - Extremity Injury (Upper) General Chief Complaint: Extremity Problem,Nontraumatic Stated Complaint: rt index finger swollen Time Seen by Provider: 02/08/23 05:54 Source: patient, RN notes reviewed and old records reviewed Mode of arrival: Ambulatory Limitations: no limitations History of Present Illness HPI narrative: 52-year-old female history of diabetes type 2, hypertension, dyslipidemia presents with right finger swelling and flexion that started about a week ago. Patient states several days ago she tried to poke it with a pair of tweezers to see if she could get anything out. She does not recall any other injury or trauma before. She states localized pain, no drainage, no fevers. No numbness, tingling or weakness. Patient states her finger tends to want to flex. She can straighten it fully. She denies any other injuries. No known antibiotic allergies. Related Data Previous Rx's Medication Instructions Recorded semaglutide 0.25 mg or 0.5 mg (2 0.5 mg (0.736 mL) SUBCUT QWEEK #12 10/22/22 mg/3 mL) subcutaneous pen injector mL (Ozempic) empagliflozin 25 mg tablet 25 mg PO QAM #90 tabs 12/17/22 (Jardiance) lisinopril 40 mg tablet 40 mg PO BID #180 tabs 12/17/22 metformin 1,000 mg tablet 1,000 mg PO BID #180 tabs 12/17/22 pantoprazole 40 mg tablet,delayed 40 mg PO QAM #90 tabs 12/17/22 release (Protonix) rosuvastatin 10 mg tablet 10 mg PO DAILY #90 tabs 12/17/22 blood-glucose sensor (Dexcom G6 #3 ea 01/07/23 Sensor device) blood-glucose transmitter (Dexcom #1 ea 01/11/23 G6 Transmitter device) doxycycline hyclate 100 mg tablet 100 mg PO BID #20 tabs 02/08/23 Allergies Allergy/AdvReac Type Severity Reaction Status Date / Time morphine AdvReac Severe Makes her Verified 09/25/22 14:48 sick oxycodone AdvReac Nausea Verified 09/25/22 14:48 Review of Systems Review of Systems ROS Unobtainable: All systems reviewed & are unremarkable except as noted in HPI and below Patient History Medical History Weight loss counseling, encounter for Lipoma of anterior chest wall [id number] condition Migraine headache with aura Asymptomatic PVCs Somatic dysfunction of lower extremity Piriformis syndrome of right side 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 Intermittent palpitations Body posture problem Segmental and somatic dysfunction of abdomen and other regions Lumbar region somatic dysfunction Thoracic region somatic dysfunction Cervical somatic dysfunction Chronic neck pain Sacral region somatic dysfunction Pelvic somatic dysfunction Chronic right-sided low back pain without sciatica Screen for colon cancer Reflux esophagitis Conjunctivitis Type 2 diabetes mellitus Mixed hyperlipidemia Asthma (~2002) Hay fever (~1999) Shoulder pain Chicken pox (~1973) Anemia Ovarian cyst (~2015) Fibroids (~2015) Kidney stones (~2016) GERD (gastroesophageal reflux disease) (~2016) Right knee sprain Surgical History History of hysterectomy (04/15/21) H/O right knee surgery Anesthesia Status post endometrial ablation (~01/2016) Family History Mother Age: 78 Heart disease Hypertension Diabetes mellitus Sister Age: 56 Heart disease Hypertension Mental health problem Diabetes mellitus Sister Age: 54 Heart disease Hypertension Father Cancer Grandmother Diabetes mellitus Social History household members: spouse Smoking Status: Never smoker alcohol intake: current Smoking Status: Never smoker alcohol intake frequency: 0-2 drinks per day Substance Use Type: does not use Exam Narrative Exam Narrative: GENERAL: Alert and oriented x three, well-appearing female in mild distress HEENT: Head normocephalic, atraumatic, EOMI, pupils reactive, face symmetric, moist mucous membranes NECK: Supple, full range of motion CARDIOVASCULAR: Regular rate and rhythm without murmurs, rubs or gallops. RESPIRATORY: Breath sounds equal bilaterally, no wheezes rales or rhonchi. ABDOMEN: Soft, nontender. Normoactive bowel sounds all 4 quadrants. No guarding or rebound, rigidity, no mass : No CVA tenderness EXTREMITIES: Normal range of motion, no clubbing. Neurovascularly intact. Patient has some mild swelling of the 2nd finger on the right hand there is an area that seems to be more localized the palmar side at between the middle and proximal joint, there is some whitish discoloration but no fluctuance or easily palpable fluid collection. Patient holds her fingers slightly flexed can get but can fully extend it without issue. Very minimally tender with palpation. There is some redness, there is no warmth. No obvious lacerations or cuts are appreciated. Patient has full range of motion of all 5 fingers, no bony tenderness. Cap refill less than 2 seconds in all 5 fingers with 2+ radial pulse. NEUROLOGICAL: Cranial nerves II through XII grossly intact. Moving all extremities SKIN: Warm, dry, no petechiae, no rashes or lesions noted other than above. Initial Vital Signs Initial Vital Signs: Vital Signs Temperature 98.4 F 02/08/23 05:54 Pulse Rate 81 02/08/23 05:54 Respiratory Rate 16 02/08/23 05:54 Blood Pressure 190/104 H 02/08/23 05:54 Pulse Oximetry 98 02/08/23 05:54 Oxygen Delivery Method Room Air 02/08/23 05:54 Course Orders Ordered: Discontinued Medications Doxycycline Hyclate (Doxycycline Hyclate 100 Mg Tablet) 100 mg PO NOW ONE Stop: 02/08/23 06:06 Vital Signs Vital signs: Vital Signs - 8 hr 02/08/23 05:54 02/08/23 06:16 Temperature 98.4 F Pulse Rate 81 Respiratory Rate 16 Blood Pressure 190/104 H 162/87 H Pulse Oximetry 98 Oxygen Delivery Method Room Air MDM - Extremity Injury (Upper) MDM Narrative Medical decision making narrative: 52-year-old female with what appears to be cellulitis of her right finger I do not feel an easily palpable fluid collection that is drainable. Did place ultrasound on a bedside no fluid collection appreciated, no foreign body. Patient's blood pressure was elevated initially on arrival she states she just took her blood pressure medication before arriving and states she is feeling pretty flustered. Patient given 1st dose of antibiotic here, prescription was sent. Discussed warm compresses, asked her not to poke or trying to open the area at home. Discussed return precautions. Need for follow-up if not significantly improving over the next few days. Discharge Plan Departure Patient Disposition: Home Clinical Impression: Cellulitis of finger Instructions: DI for Cellulitis -- Adult Activity Restrictions/Additional Instructions: Follow up for recheck in 48 hours if you are not having improvement. Apply warm compresses 4 times daily to the affected area. Take antibiotic until completed. Take 1 tablet every 12 hours until gone. Prescription sent to [facility] in [place]. Please return for fevers, increasing redness, swelling, increasing pain, if you are unable to fully straighten your finger, have new numbness, tingling or other new or concerning changes Prescriptions: New doxycycline hyclate 100 mg tablet 100 mg PO BID Qty: 20 0RF No Action Ozempic 0.25 mg or 0.5 mg (2 mg/3 mL) pen injector 0.5 mg SUBCUT QWEEK Qty: 12 3RF Rx Instructions: Please dispense a full 3 mo supply with 3 refills. 1 year total Jardiance 25 mg tablet 25 mg PO QAM Qty: 90 3RF Rx Instructions: 1/2 tabn in the AM for 6 d then 1 po qd HgA1C is 12 need improved glycemic control lisinopril 40 mg tablet 40 mg PO BID Qty: 180 3RF metformin 1,000 mg tablet 1,000 mg PO BID Qty: 180 3RF pantoprazole [Protonix] 40 mg tablet,delayed release (DR/EC) 40 mg PO QAM Qty: 90 1RF rosuvastatin 10 mg tablet 10 mg PO DAILY Qty: 90 3RF (DME) Dexcom G6 Sensor Device See Rx Instructions .Route Qty: 3 2RF Rx Instructions: Use to monitor blood sugars (DME) Dexcom G6 Transmitter Device See Rx Instructions .Route Qty: 1 4RF Rx Instructions: Use to continuosly monitor blood sugars Referrals: Laureano Cisneros DO [Primary Care Provider] - Stand Alone Forms: Patient Portal/API
[2023-02-08] MEDS: DOXYCYCLINE HYCLATE 100 MG TABLET PO (06:14)
[2023-02-08 06:16] VITALS: BP 162/87
== END 2023-02-08 06:16 | disposition home or self-care (01) ==
PROVIDERS: Emergency Provider Emergency Medicine; PCP Family Medicine
DX: L03.011 Cellulitis of right finger (principal)
CPT/HCPCS: 99283

== ENCOUNTER → 2023-03-23 07:44 | Outpatient (CLI) | payer OTHER, SELFPAY ==
[2022-05-12 10:46] VITALS: BMI 36.3
--- NOTE | 2023-03-23 09:02 | DI.RAD.S_ITS ---
PROCEDURE: XR SHOULDER RT MIN 2V INDICATIONS: R shoulder pain TECHNIQUE: 3 views of the shoulder were acquired. COMPARISON: None. FINDINGS: Bones: No fractures or dislocations. Mild degenerative changes of the acromioclavicular joint. No suspicious bony lesions. Visualized ribs appear intact. Soft tissues: No suspicious soft tissue calcifications. IMPRESSION: No acute bony abnormality. Mild degenerative changes of the acromioclavicular joint. Dictated by: Dejan Escalona M.D. on 03/23/2023 at 10:53 Approved by: Dejan Escalona M.D. on 03/23/2023 at 10:54
== END ==
PROVIDERS: PCP Family Medicine; Referring Provider Family Medicine; Visit Provider Family Medicine
DX: S43.421A Sprain of right rotator cuff capsule, initial encounter (principal); M75.01 Adhesive capsulitis of right shoulder
CPT/HCPCS: 73030

== ENCOUNTER 2023-08-27 15:15 | Outpatient (RCR) | payer OTHER, SELFPAY ==
[2022-05-12 10:46] VITALS: BMI 36.3
--- NOTE | 2023-05-21 16:30 | PT.OPPOC ---
Physical, Occupational & Speech Therapy At [facility] Current Diagnoses Pain in right shoulder (05/21/23) Stiffness of right shoulder, not elsewhere classified (05/21/23) Adhesive capsulitis of right shoulder (05/21/23) Strain of unspecified muscle, fascia and tendon at shoulder and upper arm level, right arm, initial encounter (05/21/23) Visit Care Team Role Provider Type Laureano Cisneros DO Attending Provider Physician Family Provider Primary Care Provider Referring Provider Specialty: Family Practice Address: [address] [place] [address], [facility] Email: [email or web address] Plan Of Care PT-OP-T Assessment and Plan Start: 05/21/23 16:43 Freq: Status: Active Protocol: Document 05/21/23 15:45 DCW (Rec: 05/21/23 16:54 DCW [id number]) Physical Therapy Assessment Rehab Potential Rehabilitation Potential Fair Evaluation Complexity Number of Personal Factors/Comorbidities 3 or More Number of Body Systems Impaired 3 Clinical Presentation at Evaluation Evolving Impairments Impairments Functional Activities, Functional Mobility,Pain,ROM, Soft Tissue Mobility Goals Two Impairment Pt unable to perform over-head activities Fdc Goal (LTG) Pt to improve right flexion and abduction to >120? in order to better perform overhead household activities LTG Duration 07/20/23 One Impairment Pt does not have an appropriate home exercise program Short Term Goal (STG) Pt to be independent and compliant with an appropriate HEP STG Duration 06/19/23 Assessment Summary Assessment Pt presents to with signs and symptoms consistent with soft tissue damage of right shoulder. Pt testing in-clinic during initial evaluation suggestive of potential subscapularis injury or right glenoid labral involvement. Positive right lift-off and passive external rotation testing could suggest subscap injury. Significant positive apprehension test, labral grind test and feeling of anterior instability, as well as LH biceps tendon pain could potentially suggest labral involvment. Pt may benefit from skilled therapy focusing on improving both passive and active ROM, improve strength of shoulder complex, and improving joint stability. If pt does not progress well, may be necessary for further diagnostic imaging in order to better rule in/rule out rotator cuff and labral involvement. Physical Therapy Plan Frequency and Duration Frequency of Treatment 2x/Week Plan of Care Start Date 05/21/23 Plan of Care End Date 07/20/23 Therapeutic Interventions Therapeutic Interventions Home Exercise Program,Joint Mobilizations,Manual Therapy, Neuromuscular Re-education, Patient/Caregiver Education, Self-Care/Home Management,Soft Tissue Mobilization, Therapeutic Activities, Therapeutic Exercises Modalities Cold Pack/Ice Massage,Electric Stimulation,Hot Packs, Ultrasound Next Visit Focus/Plan Next Note Type Treatment Note Next Visit Plan AAROM/PROM, strengthening, pain-control, joint stabilization Plan of Care Dates Plan of Care Start Date 05/21/23 Plan of Care End Date 07/20/23 Electronically Signed by: Milton Yoon, PT 05/24/23 2113 If you are in agreement with this Plan of Care, please return a signed and dated copy. I have reviewed this Plan of Care and certify that the skilled therapy services above are required to meet the patient?s needs. Physician Signature Date Printed Name and Credentials Clinical Instructor Signature Printed Name and Credentials
--- NOTE | 2023-05-21 16:30 | PT.OIE ---
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 Chronic right-sided low back pain without sciatica Conjunctivitis Fibroids (~2015) GERD (gastroesophageal reflux disease) (~2016) Hay fever (~1999) Intermittent palpitations Kidney stones (~2016) Lipoma of anterior chest wall Lumbar region somatic dysfunction Migraine headache with aura Mixed hyperlipidemia Ovarian cyst (~2015) Pelvic somatic dysfunction Piriformis syndrome of right side [id number] condition Reflux esophagitis Right knee sprain Right shoulder strain Sacral region somatic dysfunction Screen for colon cancer Segmental and somatic dysfunction of abdomen and other regions Shoulder pain Somatic dysfunction of lower extremity Thoracic region somatic dysfunction Type 2 diabetes mellitus Weight loss counseling, encounter for Past Surgical History (Last Reviewed 03/22/23 @ 17:56 by Laureano Cisneros DO) Anesthesia H/O right knee surgery History of hysterectomy (04/15/21) Status post endometrial ablation (~01/2016) Visit Care Team Role Provider Type Laureano Cisneros DO Attending Provider Physician Family Provider Primary Care Provider Referring Provider Specialty: [facility] Practice Address: [address] [place] [address], [facility] Email: [email or web address] Physical Therapy Initial Evaluation PT-OP-A Visit Information Start: 05/21/23 16:43 Freq: Status: Active Protocol: Document 05/21/23 15:45 DCW (Rec: 05/21/23 16:54 DCW [id number]) Out-Patient Physical Therapy Visit Information Visit Information Visit Type Initial Evaluation Visit Start Time 15:45 Visit Stop Time 16:20 Visit Number 1 Number of FURNACE AND WASH EQUIPMENT OPERATOR Visits 0 Evaluation Information Evaluation Date 05/21/23 PT-OP-B Current Condition Start: 05/21/23 16:43 Freq: Status: Active Protocol: Document 05/21/23 15:45 DCW (Rec: 05/24/23 09:40 DCW [id number]) Current Condition History of Current Condition Onset Date 4-5 months ago Current Complaints Right shoulder pain, limited mobility History of Current Condition Pt is a 53 year old female presenting to skilled therapy with a 4-5 month history of fairly limiting shoulder pain. Initial injury occurred when pt hopped off the back of a truck, with her right arm holding onto a pole, which caused her arm to pull awkwardly and pt notes she felt a stretching pop. Has been limited with shoulder mobility and function ever since. Feels the worst either at night trying to sleep, or when reaching back. Referral notes potential subscapularis involvement with possible adhesive capsulitis. MRI has been denied at this point. Treatment Goals Patient/Caregiver Goals To make it feel better. PT-OP-C Subjective Start: 05/21/23 16:43 Freq: Status: Active Protocol: Document 05/21/23 15:45 DCW (Rec: 05/24/23 09:44 DCW [id number]) OP-PT Subjective Patient Comments Patient Comments Pt notes concern that if she does have a tear, she'll need surgery. Patient Questionnaires Quick Dash- Upper Extremity Quick Dash UE Score 29.55% Quick Dash- Work and Sports Modules Quick Dash Work and Sport Impairment 20 to 39% Impaired (Score 20- 39) PT-OP-K Range of Motion Start: 05/21/23 16:43 Freq: Status: Active Protocol: Document 05/21/23 15:45 DCW (Rec: 05/24/23 09:44 DCW [id number]) Shoulder Goniometric Range of Motion Shoulder Right Passive Shoulder ROM WFL No Testing Position Supine Flexion 120 Abduction 92 Right Active Shoulder ROM WFL No Testing Position Sitting Flexion 97 Abduction 86 External Rotation at 0 degrees Abduction 65 Internal Rotation Behind Back (text) T12 Left Active Shoulder ROM WFL Yes Testing Position Sitting Flexion 180 Abduction 180 External Rotation at 0 degrees Abduction 65 Internal Rotation Behind Back (text) T6 PT-OP-L Special Tests Start: 05/21/23 16:43 Freq: Status: Active Protocol: Document 05/21/23 15:45 DCW (Rec: 05/24/23 10:32 DCW [id number]) Special Tests Shoulder Special Tests Apprehension Test Test Results Positive Right Passive ER Rotator Cuff Test Results Positive Right Speed's Biceps Test Results Positive Right Lift-Off Rotator Cuff Test Results Positive Right Acosta Jonas Impingement Test Results Negative Grind Labrum Test Results Positive Right Empty Can Test Results Negative Clunk Test Test Results Negative Drop Arm Rotator Cuff Test Results Negative Belly Press Test Results Negative PT-OP-M Strength Start: 05/21/23 16:43 Freq: Status: Active Protocol: Document 05/21/23 15:45 DCW (Rec: 05/24/23 10:32 DCW [id number]) Shoulder Strength Shoulder Manual Muscle Testing Right Flexion 2+ Poor+ Abduction (C5) 2 Poor External Rotation 4+ Good+ Internal Rotation 2 Poor Left Flexion 4+ Good+ Abduction (C5) 4+ Good+ External Rotation 4+ Good+ Internal Rotation 4+ Good+ PT-OP-Q Treatments Start: 05/21/23 16:43 Freq: Status: Active Protocol: Document 05/21/23 15:45 DCW (Rec: 05/21/23 16:54 DCW [id number]) Therapeutic Exercises Standing Exercises Wall Walk Standing Exercise Name Wall Walk - Flexion, Abduction Side right Pendulums Standing Exercise Name Pendulums Side right PT-OP-T Assessment and Plan Start: 05/21/23 16:43 Freq: Status: Active Protocol: Document 05/21/23 15:45 DCW (Rec: 05/21/23 16:54 DCW [id number]) Physical Therapy Assessment Rehab Potential Rehabilitation Potential Fair Evaluation Complexity Number of Personal Factors/Comorbidities 3 or More Number of Body Systems Impaired 3 Clinical Presentation at Evaluation Evolving Impairments Impairments Functional Activities, Functional Mobility,Pain,ROM, Soft Tissue Mobility Goals Two Impairment Pt unable to perform over-head activities Retirement Goal (LTG) Pt to improve right flexion and abduction to >120? in order to better perform overhead household activities LTG Duration 07/20/23 One Impairment Pt does not have an appropriate home exercise program Short Term Goal (STG) Pt to be independent and compliant with an appropriate HEP STG Duration 06/19/23 Assessment Summary Assessment Pt presents to with signs and symptoms consistent with soft tissue damage of right shoulder. Pt testing in-clinic during initial evaluation suggestive of potential subscapularis injury or right glenoid labral involvement. Positive right lift-off and passive external rotation testing could suggest subscap injury. Significant positive apprehension test, labral grind test and feeling of anterior instability, as well as LH biceps tendon pain could potentially suggest labral involvement. Pt may benefit from skilled therapy focusing on improving both passive and active ROM, improve strength of shoulder complex, and improving joint stability. If pt does not progress well, may be necessary for further diagnostic imaging in order to better rule in/rule out rotator cuff and labral involvement. Physical Therapy Plan Frequency and Duration Frequency of Treatment 2x/Week Plan of Care Start Date 05/21/23 Plan of Care End Date 07/20/23 Therapeutic Interventions Therapeutic Interventions Home Exercise Program,Joint Mobilizations,Manual Therapy, Neuromuscular Re-education, Patient/Caregiver Education, Self-Care/Home Management,Soft Tissue Mobilization, Therapeutic Activities, Therapeutic Exercises Modalities Cold Pack/Ice Massage,Electric Stimulation,Hot Packs, Ultrasound Next Visit Focus/Plan Next Note Type Treatment Note Next Visit Plan AAROM/PROM, strengthening, pain-control, joint stabilization
--- NOTE | 2023-05-24 16:06 | PT.OTN ---
Current Diagnoses Pain in right shoulder (05/24/23) Stiffness of right shoulder, not elsewhere classified (05/24/23) Adhesive capsulitis of right shoulder (05/24/23) Strain of unspecified muscle, fascia and tendon at shoulder and upper arm level, right arm, initial encounter (05/24/23) Physical Therapy Treatment Note PT-OP-A Visit Information Start: 05/21/23 16:43 Freq: Status: Active Protocol: Document 05/24/23 15:19 DCW (Rec: 05/24/23 16:06 DCW [id number]) Out-Patient Physical Therapy Visit Information Visit Information Visit Type Treatment Note Visit Start Time 15:19 Visit Stop Time 16:00 Visit Number 2 Number of STITCH WHEELER Visits 0 Evaluation Information Evaluation Date 05/21/23 PT-OP-B Current Condition Start: 05/21/23 16:43 Freq: Status: Active Protocol: Document 05/21/23 15:45 DCW (Rec: 05/24/23 09:40 DCW [id number]) Current Condition History of Current Condition Onset Date 4-5 months ago Current Complaints Right shoulder pain, limited mobility History of Current Condition Pt is a 53 year old female presenting to skilled therapy with a 4-5 month history of fairly limiting shoulder pain. Initial injury occurred when pt hopped off the back of a truck, with her right arm holding onto a pole, which caused her arm to pull awkwardly and pt notes she felt a stretching pop. Has been limited with shoulder mobility and function ever since. Feels the worst either at night trying to sleep, or when reaching back. Referral notes potential subscapularis involvement with possible adhesive capsulitis. MRI has been denied at this point. Treatment Goals Patient/Caregiver Goals To make it feel better. PT-OP-C Subjective Start: 05/21/23 16:43 Freq: Status: Active Protocol: Document 05/24/23 15:19 DCW (Rec: 05/24/23 16:06 DCW [id number]) OP-PT Subjective Patient Comments Patient Comments Pt did some exercise over the weekend, did not flare anything up. PT-OP-K Range of Motion Start: 05/21/23 16:43 Freq: Status: Active Protocol: Document 05/21/23 15:45 DCW (Rec: 05/24/23 09:44 DCW [id number]) Shoulder Goniometric Range of Motion Shoulder Right Passive Shoulder ROM WFL No Testing Position Supine Flexion 120 Abduction 92 Right Active Shoulder ROM WFL No Testing Position Sitting Flexion 97 Abduction 86 External Rotation at 0 degrees Abduction 65 Internal Rotation Behind Back (text) T12 Left Active Shoulder ROM WFL Yes Testing Position Sitting Flexion 180 Abduction 180 External Rotation at 0 degrees Abduction 65 Internal Rotation Behind Back (text) T6 PT-OP-L Special Tests Start: 05/21/23 16:43 Freq: Status: Active Protocol: Document 05/21/23 15:45 DCW (Rec: 05/24/23 10:32 [facility] [id number]) Special Tests Shoulder Special Tests Apprehension Test Test Results Positive Right Passive ER Rotator Cuff Test Results Positive Right Speed's Biceps Test Results Positive Right Lift-Off Rotator Cuff Test Results Positive Right Acosta Jonas Impingement Test Results Negative Grind Labrum Test Results Positive Right Empty Can Test Results Negative Clunk Test Test Results Negative Drop Arm Rotator Cuff Test Results Negative Belly Press Test Results Negative PT-OP-M Strength Start: 05/21/23 16:43 Freq: Status: Active Protocol: Document 05/21/23 15:45 DCW (Rec: 05/24/23 10:32 [facility] [id number]) Shoulder Strength Shoulder Manual Muscle Testing Right Flexion 2+ Poor+ Abduction (C5) 2 Poor External Rotation 4+ Good+ Internal Rotation 2 Poor Left Flexion 4+ Good+ Abduction (C5) 4+ Good+ External Rotation 4+ Good+ Internal Rotation 4+ Good+ PT-OP-Q Treatments Start: 05/21/23 16:43 Freq: Status: Active Protocol: Document 05/24/23 15:19 DCW (Rec: 05/24/23 16:06 [facility] [id number]) Cardio Equipment Upper Body Ergometer (UBE) Duration (Minutes) 3 Seat Position 15 Height 2 Other 2' fwd, 1' bkwd Therapeutic Exercises Supine Exercises Circles Supine Exercise Name Arm circles in 90 deg flexion Side right Resistance 3# Serratus Punch Supine Exercise Name Serratus Punch Side bilateral Equipment Used PVC Flexion Supine Exercise Name AAROM Flexion Side bilateral Equipment Used PVC Sitting Exercises PROM Sitting Exercise Name Shoulder PROM Flexion, Abduction Side bilateral Equipment Used Pulleys Standing Exercises Rows Standing Exercise Name Rows Side bilateral Resistance Lv 3 Rotation Standing Exercise Name ER/IR Side right Resistance Lv 3/1 Shrugs Standing Exercise Name Shrugs Side bilateral Resistance 3# Manual Therapy Treatment Soft Tissue Mobilization Periscapulars Body Location R Periscapulars Mobilization Type Strumming,Sustained Pressure Body Position Supine PT-OP-T Assessment and Plan Start: 05/21/23 16:43 Freq: Status: Active Protocol: Document 05/24/23 15:19 DCW (Rec: 05/24/23 16:06 DCW [id number]) Physical Therapy Assessment Impairments Impairments Functional Activities, Functional Mobility,Pain,ROM, Soft Tissue Mobility Goals Two Impairment Pt unable to perform over-head activities Project Structural Engineer Goal (LTG) Pt to improve right flexion and abduction to >120? in order to better perform overhead household activities LTG Duration 07/20/23 One Impairment Pt does not have an appropriate home exercise program Short Term Goal (STG) Pt to be independent and compliant with an appropriate HEP STG Duration 06/19/23 Assessment Summary Assessment Pt still fairly limited secondary to pain/instability with overhead ROM. Tolerated PROM/AAROM within pain-free ROM well. Good response to gentle strengthening/joint stability exercises. Physical Therapy Plan Frequency and Duration Frequency of Treatment 2x/Week Plan of Care Start Date 05/21/23 Plan of Care End Date 07/20/23 Therapeutic Interventions Therapeutic Interventions Home Exercise Program,Joint Mobilizations,Manual Therapy, Neuromuscular Re-education, Patient/Caregiver Education, Self-Care/Home Management,Soft Tissue Mobilization, Therapeutic Activities, Therapeutic Exercises Modalities Cold Pack/Ice Massage,Electric Stimulation,Hot Packs, Ultrasound Next Visit Focus/Plan Next Note Type Treatment Note Next Visit Plan AAROM/PROM, strengthening, pain-control, joint stabilization
--- NOTE | 2023-06-01 16:42 | PT.OTN ---
Current Diagnoses Pain in right shoulder (06/01/23) Stiffness of right shoulder, not elsewhere classified (06/01/23) Adhesive capsulitis of right shoulder (06/01/23) Strain of unspecified muscle, fascia and tendon at shoulder and upper arm level, right arm, initial encounter (06/01/23) Physical Therapy Treatment Note PT-OP-A Visit Information Start: 05/21/23 16:43 Freq: Status: Active Protocol: Document 06/01/23 16:00 DCW (Rec: 06/01/23 16:42 DCW [id number]) Out-Patient Physical Therapy Visit Information Visit Information Visit Type Treatment Note Visit Start Time 16:00 Visit Stop Time 16:45 Visit Number 3 Number of CONVERSION DEVELOPER Visits 0 Evaluation Information Evaluation Date 05/21/23 PT-OP-B Current Condition Start: 05/21/23 16:43 Freq: Status: Active Protocol: Document 05/21/23 15:45 DCW (Rec: 05/24/23 09:40 DCW [id number]) Current Condition History of Current Condition Onset Date 4-5 months ago Current Complaints Right shoulder pain, limited mobility History of Current Condition Pt is a 53 year old female presenting to skilled therapy with a 4-5 month history of fairly limiting shoulder pain. Initial injury occurred when pt hopped off the back of a truck, with her right arm holding onto a pole, which caused her arm to pull awkwardly and pt notes she felt a stretching pop. Has been limited with shoulder mobility and function ever since. Feels the worst either at night trying to sleep, or when reaching back. Referral notes potential subscapularis involvement with possible adhesive capsulitis. MRI has been denied at this point. Treatment Goals Patient/Caregiver Goals To make it feel better. PT-OP-C Subjective Start: 05/21/23 16:43 Freq: Status: Active Protocol: Document 06/01/23 16:00 DCW (Rec: 06/01/23 16:42 DCW [id number]) OP-PT Subjective Patient Comments Patient Comments Pt notes her shoulder is feeling pretty good. PT-OP-K Range of Motion Start: 05/21/23 16:43 Freq: Status: Active Protocol: Document 05/21/23 15:45 DCW (Rec: 05/24/23 09:44 DCW [id number]) Shoulder Goniometric Range of Motion Shoulder Right Passive Shoulder ROM WFL No Testing Position Supine Flexion 120 Abduction 92 Right Active Shoulder ROM WFL No Testing Position Sitting Flexion 97 Abduction 86 External Rotation at 0 degrees Abduction 65 Internal Rotation Behind Back (text) T12 Left Active Shoulder ROM WFL Yes Testing Position Sitting Flexion 180 Abduction 180 External Rotation at 0 degrees Abduction 65 Internal Rotation Behind Back (text) T6 PT-OP-L Special Tests Start: 05/21/23 16:43 Freq: Status: Active Protocol: Document 05/21/23 15:45 DCW (Rec: 05/24/23 10:32 [facility] [id number]) Special Tests Shoulder Special Tests Apprehension Test Test Results Positive Right Passive ER Rotator Cuff Test Results Positive Right Speed's Biceps Test Results Positive Right Lift-Off Rotator Cuff Test Results Positive Right Acosta Jonas Impingement Test Results Negative Grind Labrum Test Results Positive Right Empty Can Test Results Negative Clunk Test Test Results Negative Drop Arm Rotator Cuff Test Results Negative Belly Press Test Results Negative PT-OP-M Strength Start: 05/21/23 16:43 Freq: Status: Active Protocol: Document 05/21/23 15:45 DCW (Rec: 05/24/23 10:32 [facility] [id number]) Shoulder Strength Shoulder Manual Muscle Testing Right Flexion 2+ Poor+ Abduction (C5) 2 Poor External Rotation 4+ Good+ Internal Rotation 2 Poor Left Flexion 4+ Good+ Abduction (C5) 4+ Good+ External Rotation 4+ Good+ Internal Rotation 4+ Good+ PT-OP-Q Treatments Start: 05/21/23 16:43 Freq: Status: Active Protocol: Document 06/01/23 16:00 DCW (Rec: 06/01/23 16:42 [facility] [id number]) Cardio Equipment Upper Body Ergometer (UBE) Duration (Minutes) 3 Seat Position 15 Height 2 Other 2' fwd, 1' bkwd Therapeutic Exercises Sitting Exercises PROM Sitting Exercise Name Shoulder PROM Flexion, Abduction Side bilateral Equipment Used Pulleys Standing Exercises Adduction Standing Exercise Name Shoulder Adduction Side right Resistance Green Extension Standing Exercise Name Shoulder Extension Side bilateral Resistance Green ER Standing Exercise Name ER Side bilateral Resistance Lv 1 Abduction Standing Exercise Name Shoulder Abduction Side right Resistance Lv 1 Flexion Standing Exercise Name Shoulder flexion Side right Resistance Lv 1 IR Stretch Standing Exercise Name IR stretch /c Pulleys Side right Manual Therapy Treatment Soft Tissue Mobilization Periscapulars Body Location R Periscapulars Mobilization Type Strumming,Sustained Pressure Body Position Supine PT-OP-T Assessment and Plan Start: 05/21/23 16:43 Freq: Status: Active Protocol: Document 06/01/23 16:00 DCW (Rec: 06/01/23 16:42 DCW [id number]) Physical Therapy Assessment Impairments Impairments Functional Activities, Functional Mobility,Pain,ROM, Soft Tissue Mobility Goals Two Impairment Pt unable to perform over-head activities Fci Goal (LTG) Pt to improve right flexion and abduction to >120? in order to better perform overhead household activities LTG Duration 07/20/23 One Impairment Pt does not have an appropriate home exercise program Short Term Goal (STG) Pt to be independent and compliant with an appropriate HEP STG Duration 06/19/23 Assessment Summary Assessment Good response to treatment today, showing some improvement with pain-free overhead ROM. Good tolerance to STM Physical Therapy Plan Frequency and Duration Frequency of Treatment 2x/Week Plan of Care Start Date 05/21/23 Plan of Care End Date 07/20/23 Therapeutic Interventions Therapeutic Interventions Home Exercise Program,Joint Mobilizations,Manual Therapy, Neuromuscular Re-education, Patient/Caregiver Education, Self-Care/Home Management,Soft Tissue Mobilization, Therapeutic Activities, Therapeutic Exercises Modalities Cold Pack/Ice Massage,Electric Stimulation,Hot Packs, Ultrasound Next Visit Focus/Plan Next Note Type Treatment Note Next Visit Plan AAROM/PROM, strengthening, pain-control, joint stabilization
--- NOTE | 2023-06-03 16:13 | PT.OTN ---
Current Diagnoses Pain in right shoulder (06/03/23) Stiffness of right shoulder, not elsewhere classified (06/03/23) Adhesive capsulitis of right shoulder (06/03/23) Strain of unspecified muscle, fascia and tendon at shoulder and upper arm level, right arm, initial encounter (06/03/23) Physical Therapy Treatment Note PT-OP-A Visit Information Start: 05/21/23 16:43 Freq: Status: Active Protocol: Document 06/03/23 15:19 SW (Rec: 06/03/23 16:13 SW [id number]) Out-Patient Physical Therapy Visit Information Visit Information Visit Type Treatment Note Visit Start Time 15:18 Visit Stop Time 15:57 Visit Number 4 Number of CARDIOVASCULAR PHYSICIAN ASSISTANT Visits 1 PT-OP-B Current Condition Start: 05/21/23 16:43 Freq: Status: Active Protocol: Document 05/21/23 15:45 DCW (Rec: 05/24/23 09:40 DCW [id number]) Current Condition History of Current Condition Onset Date 4-5 months ago Current Complaints Right shoulder pain, limited mobility History of Current Condition Pt is a 53 year old female presenting to skilled therapy with a 4-5 month history of fairly limiting shoulder pain. Initial injury occurred when pt hopped off the back of a truck, with her right arm holding onto a pole, which caused her arm to pull awkwardly and pt notes she felt a stretching pop. Has been limited with shoulder mobility and function ever since. Feels the worst either at night trying to sleep, or when reaching back. Referral notes potential subscapularis involvement with possible adhesive capsulitis. MRI has been denied at this point. Treatment Goals Patient/Caregiver Goals To make it feel better. PT-OP-C Subjective Start: 05/21/23 16:43 Freq: Status: Active Protocol: Document 06/03/23 15:19 SW (Rec: 06/03/23 16:13 SW [id number]) OP-PT Subjective Patient Comments Patient Comments Pt reports no new changes since last visit. PT-OP-K Range of Motion Start: 05/21/23 16:43 Freq: Status: Active Protocol: Document 05/21/23 15:45 DCW (Rec: 05/24/23 09:44 DCW [id number]) Shoulder Goniometric Range of Motion Shoulder Right Passive Shoulder ROM WFL No Testing Position Supine Flexion 120 Abduction 92 Right Active Shoulder ROM WFL No Testing Position Sitting Flexion 97 Abduction 86 External Rotation at 0 degrees Abduction 65 Internal Rotation Behind Back (text) T12 Left Active Shoulder ROM WFL Yes Testing Position Sitting Flexion 180 Abduction 180 External Rotation at 0 degrees Abduction 65 Internal Rotation Behind Back (text) T6 PT-OP-L Special Tests Start: 05/21/23 16:43 Freq: Status: Active Protocol: Document 05/21/23 15:45 DCW (Rec: 05/24/23 10:32 DC [id number]) Special Tests Shoulder Special Tests Apprehension Test Test Results Positive Right Passive ER Rotator Cuff Test Results Positive Right Speed's Biceps Test Results Positive Right Lift-Off Rotator Cuff Test Results Positive Right Acosta Jonas Impingement Test Results Negative Grind Labrum Test Results Positive Right Empty Can Test Results Negative Clunk Test Test Results Negative Drop Arm Rotator Cuff Test Results Negative Belly Press Test Results Negative PT-OP-M Strength Start: 05/21/23 16:43 Freq: Status: Active Protocol: Document 05/21/23 15:45 DCW (Rec: 05/24/23 10:32 DCW [id number]) Shoulder Strength Shoulder Manual Muscle Testing Right Flexion 2+ Poor+ Abduction (C5) 2 Poor External Rotation 4+ Good+ Internal Rotation 2 Poor Left Flexion 4+ Good+ Abduction (C5) 4+ Good+ External Rotation 4+ Good+ Internal Rotation 4+ Good+ PT-OP-Q Treatments Start: 05/21/23 16:43 Freq: Status: Active Protocol: Document 06/03/23 15:19 SW (Rec: 06/03/23 16:13 SW [id number]) Therapeutic Exercises Supine Exercises AAROM Supine Exercise Name Shoulder Flex- scaption/FF ( issued HEP) Side bilateral Resistance AAROM Equipment Used wand Comments cues for hand placement Sitting Exercises AAROM Sitting Exercise Name Shoulder Abduction (issued HEP ) Side right Resistance AAROM Equipment Used wand Comments cues for execution, decrease shoulder elevation compensation PROM Sitting Exercise Name Shoulder PROM Flexion, Abduction Side bilateral Equipment Used Pulleys Standing Exercises Adduction Standing Exercise Name Shoulder Adduction Side right Resistance Green Extension Standing Exercise Name Shoulder Extension Side bilateral Resistance Green ER Standing Exercise Name ER Side bilateral Resistance Lv 1 Abduction Standing Exercise Name Shoulder Abduction Side right Resistance Lv 1 Flexion Standing Exercise Name Shoulder flexion Side right Resistance Lv 1 IR Stretch Standing Exercise Name IR stretch /c Pulleys>IR Towel stretch Side right Manual Therapy Treatment Soft Tissue Mobilization Periscapulars Body Location R Periscapulars Mobilization Type Strumming,Sustained Pressure Body Position Sitting PT-OP-T Assessment and Plan Start: 05/21/23 16:43 Freq: Status: Active Protocol: Document 06/03/23 15:19 SW (Rec: 06/03/23 16:13 SW [id number]) Physical Therapy Assessment Goals Two Impairment Pt unable to perform over-head activities Stationary Engineer Supervisor Goal (LTG) Pt to improve right flexion and abduction to >120? in order to better perform overhead household activities LTG Duration 07/20/23 One Impairment Pt does not have an appropriate home exercise program Short Term Goal (STG) Pt to be independent and compliant with an appropriate HEP STG Duration 06/19/23 Assessment Summary Assessment Inititated wand exercises for increased shldr flex/abd ROM, issued HEP HO, pt tolerated well, cued to not push into increasing pain and for decreased [place] compensation. Continued IR stretch with use of towel today for carryover to HEP at home. Physical Therapy Plan Frequency and Duration Frequency of Treatment 2x/Week Plan of Care Start Date 05/21/23 Plan of Care End Date 07/20/23 Therapeutic Interventions Therapeutic Interventions Home Exercise Program,Joint Mobilizations,Manual Therapy, Neuromuscular Re-education, Patient/Caregiver Education, Self-Care/Home Management,Soft Tissue Mobilization, Therapeutic Activities, Therapeutic Exercises Modalities Cold Pack/Ice Massage,Electric Stimulation,Hot Packs, Ultrasound Next Visit Focus/Plan Next Note Type Treatment Note Next Visit Plan AAROM/PROM, strengthening, pain-control, joint stabilization
--- NOTE | 2023-06-10 16:20 | PT.OTN ---
Current Diagnoses Pain in right shoulder (06/10/23) Stiffness of right shoulder, not elsewhere classified (06/10/23) Adhesive capsulitis of right shoulder (06/10/23) Strain of unspecified muscle, fascia and tendon at shoulder and upper arm level, right arm, initial encounter (06/10/23) Physical Therapy Treatment Note PT-OP-A Visit Information Start: 05/21/23 16:43 Freq: Status: Active Protocol: Document 06/10/23 13:37 SW (Rec: 06/10/23 14:33 SW [id number]) Out-Patient Physical Therapy Visit Information Visit Information Visit Type Treatment Note Visit Start Time 13:45 Visit Stop Time 14:28 Visit Number 5 Number of PORTFOLIO DIRECTOR Visits 2 PT-OP-B Current Condition Start: 05/21/23 16:43 Freq: Status: Active Protocol: Document 05/21/23 15:45 DCW (Rec: 05/24/23 09:40 DCW [id number]) Current Condition History of Current Condition Onset Date 4-5 months ago Current Complaints Right shoulder pain, limited mobility History of Current Condition Pt is a 53 year old female presenting to skilled therapy with a 4-5 month history of fairly limiting shoulder pain. Initial injury occurred when pt hopped off the back of a truck, with her right arm holding onto a pole, which caused her arm to pull awkwardly and pt notes she felt a stretching pop. Has been limited with shoulder mobility and function ever since. Feels the worst either at night trying to sleep, or when reaching back. Referral notes potential subscapularis involvement with possible adhesive capsulitis. MRI has been denied at this point. Treatment Goals Patient/Caregiver Goals To make it feel better. PT-OP-C Subjective Start: 05/21/23 16:43 Freq: Status: Active Protocol: Document 06/10/23 13:37 SW (Rec: 06/10/23 14:33 SW [id number]) OP-PT Subjective Patient Comments Patient Comments Pt reports no new call outs this session. Pt is not waking from pain like before, reports has learned what positions to avoid aggravating shoulder. PT-OP-K Range of Motion Start: 05/21/23 16:43 Freq: Status: Active Protocol: Document 05/21/23 15:45 DCW (Rec: 05/24/23 09:44 DCW [id number]) Shoulder Goniometric Range of Motion Shoulder Right Passive Shoulder ROM WFL No Testing Position Supine Flexion 120 Abduction 92 Right Active Shoulder ROM WFL No Testing Position Sitting Flexion 97 Abduction 86 External Rotation at 0 degrees Abduction 65 Internal Rotation Behind Back (text) T12 Left Active Shoulder ROM WFL Yes Testing Position Sitting Flexion 180 Abduction 180 External Rotation at 0 degrees Abduction 65 Internal Rotation Behind Back (text) T6 PT-OP-L Special Tests Start: 05/21/23 16:43 Freq: Status: Active Protocol: Document 05/21/23 15:45 DCW (Rec: 05/24/23 10:32 DCW [id number]) Special Tests Shoulder Special Tests Apprehension Test Test Results Positive Right Passive ER Rotator Cuff Test Results Positive Right Speed's Biceps Test Results Positive Right Lift-Off Rotator Cuff Test Results Positive Right Acosta Jonas Impingement Test Results Negative Grind Labrum Test Results Positive Right Empty Can Test Results Negative Clunk Test Test Results Negative Drop Arm Rotator Cuff Test Results Negative Belly Press Test Results Negative PT-OP-M Strength Start: 05/21/23 16:43 Freq: Status: Active Protocol: Document 05/21/23 15:45 DCW (Rec: 05/24/23 10:32 DCW [id number]) Shoulder Strength Shoulder Manual Muscle Testing Right Flexion 2+ Poor+ Abduction (C5) 2 Poor External Rotation 4+ Good+ Internal Rotation 2 Poor Left Flexion 4+ Good+ Abduction (C5) 4+ Good+ External Rotation 4+ Good+ Internal Rotation 4+ Good+ PT-OP-Q Treatments Start: 05/21/23 16:43 Freq: Status: Active Protocol: Document 06/10/23 13:37 SW (Rec: 06/10/23 14:33 SW [id number]) Cardio Equipment Upper Body Ergometer (UBE) Duration (Minutes) 3 Seat Position 15 Height 2 Other 2' fwd, 1' bkwd Therapeutic Exercises Sitting Exercises AAROM Sitting Exercise Name Shoulder Abduction (issued HEP ) Side right Resistance AAROM Equipment Used wand Reps/Minutes 10 x 5 hold Comments cues for execution, decrease shoulder elevation compensation Standing Exercises Posterior capsule stretch Standing Exercise Name Posterior capsule stretch Side right Reps/Minutes 2 x 30 IR Standing Exercise Name Isometric Side right Adduction Standing Exercise Name Shoulder Adduction Side right Resistance Green Extension Standing Exercise Name Shoulder Extension Side bilateral Resistance Green ER Standing Exercise Name ER Side bilateral Resistance Lv 1 Abduction Standing Exercise Name Shoulder Abduction Side right Resistance Lv 1 Flexion Standing Exercise Name Shoulder flexion Side right Resistance Lv 1 Rows Standing Exercise Name Rows Side bilateral Resistance Lv 3 Shrugs Standing Exercise Name Shrugs Side bilateral Resistance 3# Manual Therapy Treatment Soft Tissue Mobilization Periscapulars Body Location R Periscapulars Mobilization Type Strumming,Sustained Pressure Body Position Sitting PT-OP-T Assessment and Plan Start: 05/21/23 16:43 Freq: Status: Active Protocol: Document 06/10/23 13:37 (Rec: 06/10/23 14:33 [id number]) Physical Therapy Assessment Goals Two Impairment Pt unable to perform over-head activities Rehabilitation Physician Goal (LTG) Pt to improve right flexion and abduction to >120? in order to better perform overhead household activities LTG Duration 07/20/23 One Impairment Pt does not have an appropriate home exercise program Short Term Goal (STG) Pt to be independent and compliant with an appropriate HEP STG Duration 06/19/23 Assessment Summary Assessment Continued strengthening and ROM exercises this session, pt R shoulder quick to fatigue with low load. Initiated shoulder IR strengthening this session, tolerated isometric well without increase in symptoms, trialed concentric low load pt reported discomfort, continued with isometric, verbal cues for correct execution, to decrease compensation, improved with feedback. Physical Therapy Plan Frequency and Duration Frequency of Treatment 2x/Week Plan of Care Start Date 05/21/23 Plan of Care End Date 07/20/23 Therapeutic Interventions Therapeutic Interventions Home Exercise Program,Joint Mobilizations,Manual Therapy, Neuromuscular Re-education, Patient/Caregiver Education, Self-Care/Home Management,Soft Tissue Mobilization, Therapeutic Activities, Therapeutic Exercises Modalities Cold Pack/Ice Massage,Electric Stimulation,Hot Packs, Ultrasound Next Visit Focus/Plan Next Note Type Treatment Note Next Visit Plan AAROM/PROM, strengthening, pain-control, joint stabilization
--- NOTE | 2023-06-16 16:08 | PT.OTN ---
Current Diagnoses Pain in right shoulder (06/16/23) Stiffness of right shoulder, not elsewhere classified (06/16/23) Adhesive capsulitis of right shoulder (06/16/23) Strain of unspecified muscle, fascia and tendon at shoulder and upper arm level, right arm, initial encounter (06/16/23) Physical Therapy Treatment Note PT-OP-A Visit Information Start: 05/21/23 16:43 Freq: Status: Active Protocol: Document 06/16/23 15:21 SW (Rec: 06/16/23 16:08 [id number]) Out-Patient Physical Therapy Visit Information Visit Information Visit Type Treatment Note Visit Start Time 15:17 Visit Stop Time 15:57 Visit Number 6 Number of TOWER OBSERVER Visits 3 PT-OP-B Current Condition Start: 05/21/23 16:43 Freq: Status: Active Protocol: Document 05/21/23 15:45 DCW (Rec: 05/24/23 09:40 DCW [id number]) Current Condition History of Current Condition Onset Date 4-5 months ago Current Complaints Right shoulder pain, limited mobility History of Current Condition Pt is a 53 year old female presenting to skilled therapy with a 4-5 month history of fairly limiting shoulder pain. Initial injury occurred when pt hopped off the back of a truck, with her right arm holding onto a pole, which caused her arm to pull awkwardly and pt notes she felt a stretching pop. Has been limited with shoulder mobility and function ever since. Feels the worst either at night trying to sleep, or when reaching back. Referral notes potential subscapularis involvement with possible adhesive capsulitis. MRI has been denied at this point. Treatment Goals Patient/Caregiver Goals To make it feel better. PT-OP-C Subjective Start: 05/21/23 16:43 Freq: Status: Active Protocol: Document 06/16/23 15:21 SW (Rec: 06/16/23 16:08 [id number]) OP-PT Subjective Patient Comments Patient Comments Pt reports feels improvement in range, reaching up in cupboard can go a little higher than before. PT-OP-K Range of Motion Start: 05/21/23 16:43 Freq: Status: Active Protocol: Document 05/21/23 15:45 DCW (Rec: 05/24/23 09:44 DCW [id number]) Shoulder Goniometric Range of Motion Shoulder Right Passive Shoulder ROM WFL No Testing Position Supine Flexion 120 Abduction 92 Right Active Shoulder ROM WFL No Testing Position Sitting Flexion 97 Abduction 86 External Rotation at 0 degrees Abduction 65 Internal Rotation Behind Back (text) T12 Left Active Shoulder ROM WFL Yes Testing Position Sitting Flexion 180 Abduction 180 External Rotation at 0 degrees Abduction 65 Internal Rotation Behind Back (text) T6 PT-OP-L Special Tests Start: 05/21/23 16:43 Freq: Status: Active Protocol: Document 05/21/23 15:45 DCW (Rec: 05/24/23 10:32 DCW [id number]) Special Tests Shoulder Special Tests Apprehension Test Test Results Positive Right Passive ER Rotator Cuff Test Results Positive Right Speed's Biceps Test Results Positive Right Lift-Off Rotator Cuff Test Results Positive Right Acosta Jonas Impingement Test Results Negative Grind Labrum Test Results Positive Right Empty Can Test Results Negative Clunk Test Test Results Negative Drop Arm Rotator Cuff Test Results Negative Belly Press Test Results Negative PT-OP-M Strength Start: 05/21/23 16:43 Freq: Status: Active Protocol: Document 05/21/23 15:45 DCW (Rec: 05/24/23 10:32 DCW [id number]) Shoulder Strength Shoulder Manual Muscle Testing Right Flexion 2+ Poor+ Abduction (C5) 2 Poor External Rotation 4+ Good+ Internal Rotation 2 Poor Left Flexion 4+ Good+ Abduction (C5) 4+ Good+ External Rotation 4+ Good+ Internal Rotation 4+ Good+ PT-OP-Q Treatments Start: 05/21/23 16:43 Freq: Status: Active Protocol: Document 06/16/23 15:21 SW (Rec: 06/16/23 16:08 [id number]) Cardio Equipment Upper Body Ergometer (UBE) Duration (Minutes) 6 Seat Position 15 Height 2 Other 2' fwd, 1' bkwd Therapeutic Exercises Supine Exercises Serratus Punch Supine Exercise Name Serratus Punch Side bilateral Equipment Used 1#>2# Reps/Minutes 2x10 Sitting Exercises AAROM Sitting Exercise Name Shoulder Abduction, FF, ER( cues for gentle, no pushing into pain) Side bilateral Resistance AAROM Equipment Used wand Reps/Minutes 10 x 5 hold Comments cues for execution, decrease shoulder elevation compensation PROM Sitting Exercise Name Shoulder PROM Flexion, Abduction Side bilateral Equipment Used Pulleys Standing Exercises IR Standing Exercise Name Isometric Side right Adduction Standing Exercise Name Shoulder Adduction Side right Resistance Green ER Standing Exercise Name ER Side bilateral Resistance Lv 2 Abduction Standing Exercise Name Shoulder Abduction Side right Resistance Lv 2 Flexion Standing Exercise Name Shoulder flexion Side right Resistance Lv 2 IR Stretch Standing Exercise Name IR stretch /c Pulleys>IR Towel stretch Side right Shrugs Standing Exercise Name Shrugs Side bilateral Resistance 5# PT-OP-T Assessment and Plan Start: 05/21/23 16:43 Freq: Status: Active Protocol: Document 06/16/23 15:21 (Rec: 06/16/23 16:08 [id number]) Physical Therapy Assessment Goals Two Impairment Pt unable to perform over-head activities Intermediate Goal (LTG) Pt to improve right flexion and abduction to >120? in order to better perform overhead household activities LTG Duration 07/20/23 One Impairment Pt does not have an appropriate home exercise program Short Term Goal (STG) Pt to be independent and compliant with an appropriate HEP STG Duration 06/19/23 Assessment Summary Assessment Progressed pt right shoulder strengthening today with increase in resistance, pt tolerated well, appropriate fatigue without increase in symptoms. Pt able to reach higher overhead this session, with decreased compensation from overactivation of upper trap and lateral trunk lean compared to previous 2 sessions. Minimal cues required for form and execution during ther ex, good correction with cues. Physical Therapy Plan Frequency and Duration Frequency of Treatment 2x/Week Plan of Care Start Date 05/21/23 Plan of Care End Date 07/20/23 Therapeutic Interventions Therapeutic Interventions Home Exercise Program,Joint Mobilizations,Manual Therapy, Neuromuscular Re-education, Patient/Caregiver Education, Self-Care/Home Management,Soft Tissue Mobilization, Therapeutic Activities, Therapeutic Exercises Modalities Cold Pack/Ice Massage,Electric Stimulation,Hot Packs, Ultrasound Next Visit Focus/Plan Next Note Type Treatment Note Next Visit Plan AAROM/PROM, strengthening, pain-control, joint stabilization
--- NOTE | 2023-06-28 15:59 | PT.OTN ---
Current Diagnoses Pain in right shoulder (06/28/23) Stiffness of right shoulder, not elsewhere classified (06/28/23) Adhesive capsulitis of right shoulder (06/28/23) Strain of unspecified muscle, fascia and tendon at shoulder and upper arm level, right arm, initial encounter (06/28/23) Physical Therapy Treatment Note PT-OP-A Visit Information Start: 05/21/23 16:43 Freq: Status: Active Protocol: Document 06/28/23 15:15 DCW (Rec: 06/28/23 15:58 DCW [id number]) Out-Patient Physical Therapy Visit Information Visit Information Visit Type Treatment Note Visit Start Time 15:15 Visit Stop Time 16:00 Visit Number 7 Number of SOLAR SYSTEM DESIGNER Visits 0 Evaluation Information Evaluation Date 05/21/23 PT-OP-B Current Condition Start: 05/21/23 16:43 Freq: Status: Active Protocol: Document 05/21/23 15:45 DCW (Rec: 05/24/23 09:40 DCW [id number]) Current Condition History of Current Condition Onset Date 4-5 months ago Current Complaints Right shoulder pain, limited mobility History of Current Condition Pt is a 53 year old female presenting to skilled therapy with a 4-5 month history of fairly limiting shoulder pain. Initial injury occurred when pt hopped off the back of a truck, with her right arm holding onto a pole, which caused her arm to pull awkwardly and pt notes she felt a stretching pop. Has been limited with shoulder mobility and function ever since. Feels the worst either at night trying to sleep, or when reaching back. Referral notes potential subscapularis involvement with possible adhesive capsulitis. MRI has been denied at this point. Treatment Goals Patient/Caregiver Goals To make it feel better. PT-OP-C Subjective Start: 05/21/23 16:43 Freq: Status: Active Protocol: Document 06/28/23 15:15 DCW (Rec: 06/28/23 15:58 DCW [id number]) OP-PT Subjective Patient Comments Patient Comments When I'm doing my exercises, it seems like it gets better, but then it just goes back. Notes she has been getting some carpal tunnel symptoms in her hand doing some of her exercises, wants to check with Dr Cisneros before continuing . PT-OP-K Range of Motion Start: 05/21/23 16:43 Freq: Status: Active Protocol: Document 05/21/23 15:45 DCW (Rec: 05/24/23 09:44 DCW [id number]) Shoulder Goniometric Range of Motion Shoulder Right Passive Shoulder ROM WFL No Testing Position Supine Flexion 120 Abduction 92 Right Active Shoulder ROM WFL No Testing Position Sitting Flexion 97 Abduction 86 External Rotation at 0 degrees Abduction 65 Internal Rotation Behind Back (text) T12 Left Active Shoulder ROM WFL Yes Testing Position Sitting Flexion 180 Abduction 180 External Rotation at 0 degrees Abduction 65 Internal Rotation Behind Back (text) T6 PT-OP-L Special Tests Start: 05/21/23 16:43 Freq: Status: Active Protocol: Document 05/21/23 15:45 DCW (Rec: 05/24/23 10:32 DCW [id number]) Special Tests Shoulder Special Tests Apprehension Test Test Results Positive Right Passive ER Rotator Cuff Test Results Positive Right Speed's Biceps Test Results Positive Right Lift-Off Rotator Cuff Test Results Positive Right Acosta Jonas Impingement Test Results Negative Grind Labrum Test Results Positive Right Empty Can Test Results Negative Clunk Test Test Results Negative Drop Arm Rotator Cuff Test Results Negative Belly Press Test Results Negative PT-OP-M Strength Start: 05/21/23 16:43 Freq: Status: Active Protocol: Document 05/21/23 15:45 DCW (Rec: 05/24/23 10:32 DCW [id number]) Shoulder Strength Shoulder Manual Muscle Testing Right Flexion 2+ Poor+ Abduction (C5) 2 Poor External Rotation 4+ Good+ Internal Rotation 2 Poor Left Flexion 4+ Good+ Abduction (C5) 4+ Good+ External Rotation 4+ Good+ Internal Rotation 4+ Good+ PT-OP-Q Treatments Start: 05/21/23 16:43 Freq: Status: Active Protocol: Document 06/28/23 15:15 DCW (Rec: 06/28/23 15:58 DCW [id number]) Cardio Equipment Upper Body Ergometer (UBE) Duration (Minutes) 5 Seat Position 15 Height 2 Other 2.5' fwd, 2.5' bkwd Therapeutic Exercises Supine Exercises AAROM Supine Exercise Name Shoulder Flex- scaption/FF Side bilateral Resistance AAROM/PROM Sitting Exercises Nerve Glides Sitting Exercise Name Medial nerve glides Side right Manual Therapy Treatment Soft Tissue Mobilization Cervical Body Location R cervical musculature Periscapulars Body Location R Periscapulars Mobilization Type Strumming,Sustained Pressure Body Position Sitting PT-OP-T Assessment and Plan Start: 05/21/23 16:43 Freq: Status: Active Protocol: Document 06/28/23 15:15 DCW (Rec: 06/28/23 15:58 DCW [id number]) Physical Therapy Assessment Impairments Impairments Functional Activities, Functional Mobility,Pain,ROM, Soft Tissue Mobility Goals Two Impairment Pt unable to perform over-head activities Long-Term Goal (LTG) Pt to improve right flexion and abduction to >120? in order to better perform overhead household activities LTG Duration 07/20/23 One Impairment Pt does not have an appropriate home exercise program Short Term Goal (STG) Pt to be independent and compliant with an appropriate HEP STG Duration 06/19/23 Assessment Summary Assessment Positive median nerve tension testing today, addition of nerve glides to HEP. Likely due to increased tone in cervical and shoulder musculature resulting in nerve entrapment. Continue to work on shoulder ROM, STM, strengthening, and nerve glides as tolerated. Physical Therapy Plan Frequency and Duration Frequency of Treatment 2x/Week Plan of Care Start Date 05/21/23 Plan of Care End Date 07/20/23 Therapeutic Interventions Therapeutic Interventions Home Exercise Program,Joint Mobilizations,Manual Therapy, Neuromuscular Re-education, Patient/Caregiver Education, Self-Care/Home Management,Soft Tissue Mobilization, Therapeutic Activities, Therapeutic Exercises Modalities Cold Pack/Ice Massage,Electric Stimulation,Hot Packs, Ultrasound Next Visit Focus/Plan Next Note Type Treatment Note Next Visit Plan AAROM/PROM, strengthening, pain-control, joint stabilization
--- NOTE | 2023-07-06 16:02 | PT.OTN ---
Current Diagnoses Pain in right shoulder (07/06/23) Stiffness of right shoulder, not elsewhere classified (07/06/23) Adhesive capsulitis of right shoulder (07/06/23) Strain of unspecified muscle, fascia and tendon at shoulder and upper arm level, right arm, initial encounter (07/06/23) Physical Therapy Treatment Note PT-OP-A Visit Information Start: 05/21/23 16:43 Freq: Status: Active Protocol: Document 07/06/23 15:17 DCW (Rec: 07/06/23 16:02 DCW [id number]) Out-Patient Physical Therapy Visit Information Visit Information Visit Type Treatment Note Visit Start Time 15:17 Visit Stop Time 16:00 Visit Number 8 Number of CODING SPEC Visits 0 Evaluation Information Evaluation Date 05/21/23 PT-OP-B Current Condition Start: 05/21/23 16:43 Freq: Status: Active Protocol: Document 05/21/23 15:45 DCW (Rec: 05/24/23 09:40 DCW [id number]) Current Condition History of Current Condition Onset Date 4-5 months ago Current Complaints Right shoulder pain, limited mobility History of Current Condition Pt is a 53 year old female presenting to skilled therapy with a 4-5 month history of fairly limiting shoulder pain. Initial injury occurred when pt hopped off the back of a truck, with her right arm holding onto a pole, which caused her arm to pull awkwardly and pt notes she felt a stretching pop. Has been limited with shoulder mobility and function ever since. Feels the worst either at night trying to sleep, or when reaching back. Referral notes potential subscapularis involvement with possible adhesive capsulitis. MRI has been denied at this point. Treatment Goals Patient/Caregiver Goals To make it feel better. PT-OP-C Subjective Start: 05/21/23 16:43 Freq: Status: Active Protocol: Document 07/06/23 15:17 DCW (Rec: 07/06/23 16:02 DCW [id number]) OP-PT Subjective Patient Comments Patient Comments Pt notes her tingling symptoms have been better recently. PT-OP-K Range of Motion Start: 05/21/23 16:43 Freq: Status: Active Protocol: Document 05/21/23 15:45 DCW (Rec: 05/24/23 09:44 DCW [id number]) Shoulder Goniometric Range of Motion Shoulder Right Passive Shoulder ROM WFL No Testing Position Supine Flexion 120 Abduction 92 Right Active Shoulder ROM WFL No Testing Position Sitting Flexion 97 Abduction 86 External Rotation at 0 degrees Abduction 65 Internal Rotation Behind Back (text) T12 Left Active Shoulder ROM WFL Yes Testing Position Sitting Flexion 180 Abduction 180 External Rotation at 0 degrees Abduction 65 Internal Rotation Behind Back (text) T6 PT-OP-L Special Tests Start: 05/21/23 16:43 Freq: Status: Active Protocol: Document 05/21/23 15:45 DCW (Rec: 05/24/23 10:32 [facility] [id number]) Special Tests Shoulder Special Tests Apprehension Test Test Results Positive Right Passive ER Rotator Cuff Test Results Positive Right Speed's Biceps Test Results Positive Right Lift-Off Rotator Cuff Test Results Positive Right Acosta Jonas Impingement Test Results Negative Grind Labrum Test Results Positive Right Empty Can Test Results Negative Clunk Test Test Results Negative Drop Arm Rotator Cuff Test Results Negative Belly Press Test Results Negative PT-OP-M Strength Start: 05/21/23 16:43 Freq: Status: Active Protocol: Document 05/21/23 15:45 DCW (Rec: 05/24/23 10:32 [facility] [id number]) Shoulder Strength Shoulder Manual Muscle Testing Right Flexion 2+ Poor+ Abduction (C5) 2 Poor External Rotation 4+ Good+ Internal Rotation 2 Poor Left Flexion 4+ Good+ Abduction (C5) 4+ Good+ External Rotation 4+ Good+ Internal Rotation 4+ Good+ PT-OP-Q Treatments Start: 05/21/23 16:43 Freq: Status: Active Protocol: Document 07/06/23 15:17 DCW (Rec: 07/06/23 16:02 [facility] [id number]) Cardio Equipment Upper Body Ergometer (UBE) Duration (Minutes) 5 Seat Position 15 Height 2 Other 2.5' fwd, 2.5' bkwd Therapeutic Exercises Prone Exercises I's, Y's, T's Prone Exercise Name Prone I's, Y's, T's Side right Resistance 3# Standing Exercises Chest Press Standing Exercise Name Chest Press Side bilateral Equipment Used PVC Wall Ball Standing Exercise Name Circles Side right Abduction Standing Exercise Name Shoulder Abduction Side bilateral Resistance 4# Flexion Standing Exercise Name Shoulder flexion Side bilateral Resistance 4# Other Exercises Resisted Ambulation Other Exercise Name Resisted UE side-stepping Side bilateral Equipment Used Green Manual Therapy Treatment Soft Tissue Mobilization Cervical Body Location R cervical musculature Periscapulars Body Location R Periscapulars Mobilization Type Strumming,Sustained Pressure Body Position Sitting PT-OP-T Assessment and Plan Start: 05/21/23 16:43 Freq: Status: Active Protocol: Document 07/06/23 15:17 DCW (Rec: 07/06/23 16:02 DCW [id number]) Physical Therapy Assessment Impairments Impairments Functional Activities, Functional Mobility,Pain,ROM, Soft Tissue Mobility Goals Two Impairment Pt unable to perform over-head activities Prison Goal (LTG) Pt to improve right flexion and abduction to >120? in order to better perform overhead household activities LTG Duration 07/20/23 One Impairment Pt does not have an appropriate home exercise program Short Term Goal (STG) Pt to be independent and compliant with an appropriate HEP STG Duration 06/19/23 Assessment Summary Assessment Pt demonstrating improvement in tone in supraspinatus and infraspinatus, as well as improved AROM of right shoulder, even with increased resistance. Continue to focus on strengthening and joint stabilization Physical Therapy Plan Frequency and Duration Frequency of Treatment 2x/Week Plan of Care Start Date 05/21/23 Plan of Care End Date 07/20/23 Therapeutic Interventions Therapeutic Interventions Home Exercise Program,Joint Mobilizations,Manual Therapy, Neuromuscular Re-education, Patient/Caregiver Education, Self-Care/Home Management,Soft Tissue Mobilization, Therapeutic Activities, Therapeutic Exercises Modalities Cold Pack/Ice Massage,Electric Stimulation,Hot Packs, Ultrasound Next Visit Focus/Plan Next Note Type Treatment Note Next Visit Plan AAROM/PROM, strengthening, pain-control, joint stabilization
--- NOTE | 2023-07-14 16:01 | PT.OTN ---
Current Diagnoses Pain in right shoulder (07/14/23) Stiffness of right shoulder, not elsewhere classified (07/14/23) Adhesive capsulitis of right shoulder (07/14/23) Strain of unspecified muscle, fascia and tendon at shoulder and upper arm level, right arm, initial encounter (07/14/23) Physical Therapy Treatment Note PT-OP-A Visit Information Start: 05/21/23 16:43 Freq: Status: Active Protocol: Document 07/14/23 15:15 DCW (Rec: 07/14/23 16:01 DCW [id number]) Out-Patient Physical Therapy Visit Information Visit Information Visit Type Treatment Note Visit Start Time 15:15 Visit Stop Time 16:00 Visit Number 9 Number of WASTEWATER PROCESS ENGINEER Visits 0 Evaluation Information Evaluation Date 05/21/23 PT-OP-B Current Condition Start: 05/21/23 16:43 Freq: Status: Active Protocol: Document 05/21/23 15:45 DCW (Rec: 05/24/23 09:40 DCW [id number]) Current Condition History of Current Condition Onset Date 4-5 months ago Current Complaints Right shoulder pain, limited mobility History of Current Condition Pt is a 53 year old female presenting to skilled therapy with a 4-5 month history of fairly limiting shoulder pain. Initial injury occurred when pt hopped off the back of a truck, with her right arm holding onto a pole, which caused her arm to pull awkwardly and pt notes she felt a stretching pop. Has been limited with shoulder mobility and function ever since. Feels the worst either at night trying to sleep, or when reaching back. Referral notes potential subscapularis involvement with possible adhesive capsulitis. MRI has been denied at this point. Treatment Goals Patient/Caregiver Goals To make it feel better. PT-OP-C Subjective Start: 05/21/23 16:43 Freq: Status: Active Protocol: Document 07/14/23 15:15 DCW (Rec: 07/14/23 16:01 DCW [id number]) OP-PT Subjective Patient Comments Patient Comments [facility], about the same. PT-OP-K Range of Motion Start: 05/21/23 16:43 Freq: Status: Active Protocol: Document 05/21/23 15:45 DCW (Rec: 05/24/23 09:44 DCW [id number]) Shoulder Goniometric Range of Motion Shoulder Right Passive Shoulder ROM WFL No Testing Position Supine Flexion 120 Abduction 92 Right Active Shoulder ROM WFL No Testing Position Sitting Flexion 97 Abduction 86 External Rotation at 0 degrees Abduction 65 Internal Rotation Behind Back (text) T12 Left Active Shoulder ROM WFL Yes Testing Position Sitting Flexion 180 Abduction 180 External Rotation at 0 degrees Abduction 65 Internal Rotation Behind Back (text) T6 PT-OP-L Special Tests Start: 05/21/23 16:43 Freq: Status: Active Protocol: Document 05/21/23 15:45 DCW (Rec: 05/24/23 10:32 [facility] [id number]) Special Tests Shoulder Special Tests Apprehension Test Test Results Positive Right Passive ER Rotator Cuff Test Results Positive Right Speed's Biceps Test Results Positive Right Lift-Off Rotator Cuff Test Results Positive Right Acosta Jonas Impingement Test Results Negative Grind Labrum Test Results Positive Right Empty Can Test Results Negative Clunk Test Test Results Negative Drop Arm Rotator Cuff Test Results Negative Belly Press Test Results Negative PT-OP-M Strength Start: 05/21/23 16:43 Freq: Status: Active Protocol: Document 05/21/23 15:45 DCW (Rec: 05/24/23 10:32 [facility] [id number]) Shoulder Strength Shoulder Manual Muscle Testing Right Flexion 2+ Poor+ Abduction (C5) 2 Poor External Rotation 4+ Good+ Internal Rotation 2 Poor Left Flexion 4+ Good+ Abduction (C5) 4+ Good+ External Rotation 4+ Good+ Internal Rotation 4+ Good+ PT-OP-Q Treatments Start: 05/21/23 16:43 Freq: Status: Active Protocol: Document 07/14/23 15:15 DCW (Rec: 07/14/23 16:01 AZW [id number]) Cardio Equipment Upper Body Ergometer (UBE) Duration (Minutes) 5 Seat Position 15 Height 2 Other 2.5' fwd, 2.5' bkwd Therapeutic Exercises Supine Exercises AAROM Supine Exercise Name Shoulder Flex- scaption/FF Side bilateral Resistance AAROM/PROM Standing Exercises Chest Press Standing Exercise Name Chest Press Side bilateral Equipment Used PVC ER Standing Exercise Name ER/IR Side right Resistance Green Abduction Standing Exercise Name Shoulder Abduction Side bilateral Resistance 4# Flexion Standing Exercise Name Shoulder flexion Side bilateral Resistance 4# Other Exercises Resisted Ambulation Other Exercise Name Resisted UE side-stepping Side bilateral Equipment Used Green Manual Therapy Treatment Soft Tissue Mobilization Cervical Body Location R cervical musculature Periscapulars Body Location R Periscapulars Mobilization Type Strumming,Sustained Pressure Body Position Sitting PT-OP-T Assessment and Plan Start: 05/21/23 16:43 Freq: Status: Active Protocol: Document 07/14/23 15:15 DCW (Rec: 07/14/23 16:01 DCW [id number]) Physical Therapy Assessment Impairments Impairments Functional Activities, Functional Mobility,Pain,ROM, Soft Tissue Mobility Goals Two Impairment Pt unable to perform over-head activities Senior Living Goal (LTG) Pt to improve right flexion and abduction to >120? in order to better perform overhead household activities LTG Duration 07/20/23 One Impairment Pt does not have an appropriate home exercise program Short Term Goal (STG) Pt to be independent and compliant with an appropriate HEP STG Duration 06/19/23 Assessment Summary Assessment Showing some good improvement with PROM, although still fairly limited with AROM. Continue to focus on pain-free ROM, shoulder strengthening, STM, and flexibility. Physical Therapy Plan Frequency and Duration Frequency of Treatment 2x/Week Plan of Care Start Date 05/21/23 Plan of Care End Date 07/20/23 Therapeutic Interventions Therapeutic Interventions Home Exercise Program,Joint Mobilizations,Manual Therapy, Neuromuscular Re-education, Patient/Caregiver Education, Self-Care/Home Management,Soft Tissue Mobilization, Therapeutic Activities, Therapeutic Exercises Modalities Cold Pack/Ice Massage,Electric Stimulation,Hot Packs, Ultrasound Next Visit Focus/Plan Next Note Type Treatment Note Next Visit Plan AAROM/PROM, strengthening, pain-control, joint stabilization
--- NOTE | 2023-07-21 11:58 | PT.OTN ---
Current Diagnoses Pain in right shoulder (07/21/23) Stiffness of right shoulder, not elsewhere classified (07/21/23) Adhesive capsulitis of right shoulder (07/21/23) Strain of unspecified muscle, fascia and tendon at shoulder and upper arm level, right arm, initial encounter (07/21/23) Physical Therapy Treatment Note PT-OP-A Visit Information Start: 05/21/23 16:43 Freq: Status: Active Protocol: Document 07/21/23 11:17 DCW (Rec: 07/21/23 11:58 DCW [id number]) Out-Patient Physical Therapy Visit Information Visit Information Visit Type Progress Note Visit Start Time 11:17 Visit Stop Time 12:00 Visit Number 10 Number of HISTORY CARD CLERK Visits 0 Evaluation Information Evaluation Date 05/21/23 PT-OP-B Current Condition Start: 05/21/23 16:43 Freq: Status: Active Protocol: Document 05/21/23 15:45 DCW (Rec: 05/24/23 09:40 DCW [id number]) Current Condition History of Current Condition Onset Date 4-5 months ago Current Complaints Right shoulder pain, limited mobility History of Current Condition Pt is a 53 year old female presenting to skilled therapy with a 4-5 month history of fairly limiting shoulder pain. Initial injury occurred when pt hopped off the back of a truck, with her right arm holding onto a pole, which caused her arm to pull awkwardly and pt notes she felt a stretching pop. Has been limited with shoulder mobility and function ever since. Feels the worst either at night trying to sleep, or when reaching back. Referral notes potential subscapularis involvement with possible adhesive capsulitis. MRI has been denied at this point. Treatment Goals Patient/Caregiver Goals To make it feel better. PT-OP-C Subjective Start: 05/21/23 16:43 Freq: Status: Active Protocol: Document 07/21/23 11:17 DCW (Rec: 07/21/23 11:58 DCW [id number]) OP-PT Subjective Patient Comments Patient Comments Pt notes minimal changes. PT-OP-K Range of Motion Start: 05/21/23 16:43 Freq: Status: Active Protocol: Document 07/21/23 11:17 DCW (Rec: 07/21/23 11:33 DCW [id number]) Shoulder Goniometric Range of Motion Shoulder Right Passive Shoulder ROM WFL No Testing Position Supine Flexion 120 Abduction 95 Right Active Flexion 111 Abduction 91 External Rotation at 0 degrees Abduction 62 Internal Rotation Behind Back (text) T10 PT-OP-L Special Tests Start: 05/21/23 16:43 Freq: Status: Active Protocol: Document 07/21/23 11:17 DCW (Rec: 07/21/23 11:33 DCW [id number]) Special Tests Shoulder Special Tests Apprehension Test Test Results Positive Right Passive ER Rotator Cuff Test Results Positive Right Speed's Biceps Test Results Positive Right Lift-Off Rotator Cuff Test Results Positive Right Acosta Jonas Impingement Test Results Negative Grind Labrum Test Results Positive Right Empty Can Test Results Negative Clunk Test Test Results Negative Drop Arm Rotator Cuff Test Results Negative Belly Press Test Results Negative PT-OP-M Strength Start: 05/21/23 16:43 Freq: Status: Active Protocol: Document 05/21/23 15:45 DCW (Rec: 05/24/23 10:32 DCW [id number]) Shoulder Strength Shoulder Manual Muscle Testing Right Flexion 2+ Poor+ Abduction (C5) 2 Poor External Rotation 4+ Good+ Internal Rotation 2 Poor Left Flexion 4+ Good+ Abduction (C5) 4+ Good+ External Rotation 4+ Good+ Internal Rotation 4+ Good+ PT-OP-Q Treatments Start: 05/21/23 16:43 Freq: Status: Active Protocol: Document 07/21/23 11:17 DCW (Rec: 07/21/23 11:58 DCW [id number]) Manual Therapy Treatment Soft Tissue Mobilization Cervical Body Location R cervical musculature Periscapulars Body Location R Periscapulars Mobilization Type Strumming,Sustained Pressure Body Position Sitting PT-OP-T Assessment and Plan Start: 05/21/23 16:43 Freq: Status: Active Protocol: Document 07/21/23 11:17 DCW (Rec: 07/21/23 11:58 DCW [id number]) Physical Therapy Assessment Impairments Impairments Functional Activities, Functional Mobility,Pain,ROM, Soft Tissue Mobility Goals Two Impairment Pt unable to perform over-head activities Code Clerk Goal (LTG) Pt to improve right flexion and abduction to >120? in order to better perform overhead household activities LTG Duration 09/20/23 One Impairment Pt does not have an appropriate home exercise program Short Term Goal (STG) Pt to be independent and compliant with an appropriate HEP STG Duration Met Assessment Summary Assessment Some mild improvements overall with pain and ROM, but largely minimal changes. At this point, may continue to benefit from skilled therapeutic intervention, but would strongly recommend further advanced imaging to rule in-out structural damage. Physical Therapy Plan Frequency and Duration Frequency of Treatment 2x/Week Plan of Care Start Date 07/21/23 Plan of Care End Date 09/20/23 Therapeutic Interventions Therapeutic Interventions Home Exercise Program,Joint Mobilizations,Manual Therapy, Neuromuscular Re-education, Patient/Caregiver Education, Self-Care/Home Management,Soft Tissue Mobilization, Therapeutic Activities, Therapeutic Exercises Modalities Cold Pack/Ice Massage,Electric Stimulation,Hot Packs, Ultrasound Other Referrals/Consults Referrals/Consults Recommended Recommend advanced imaging/MRI Next Visit Focus/Plan Next Note Type Treatment Note Next Visit Plan AAROM/PROM, strengthening, pain-control, joint stabilization
--- NOTE | 2023-07-21 11:59 | PT.OPPOC ---
Physical, Occupational & Speech Therapy At [facility] Current Diagnoses Pain in right shoulder (07/21/23) Stiffness of right shoulder, not elsewhere classified (07/21/23) Adhesive capsulitis of right shoulder (07/21/23) Strain of unspecified muscle, fascia and tendon at shoulder and upper arm level, right arm, initial encounter (07/21/23) Visit Care Team Role Provider Type Laureano Cisneros DO Attending Provider Physician Family Provider Primary Care Provider Referring Provider Specialty: Family Practice Address: [address] [place] [address], [facility] Email: [email or web address] Plan Of Care PT-OP-T Assessment and Plan Start: 05/21/23 16:43 Freq: Status: Active Protocol: Document 07/21/23 11:17 DCW (Rec: 07/21/23 11:58 DCW [id number]) Physical Therapy Assessment Impairments Impairments Functional Activities, Functional Mobility,Pain,ROM, Soft Tissue Mobility Goals Two Impairment Pt unable to perform over-head activities Photogrammetrist Goal (LTG) Pt to improve right flexion and abduction to >120? in order to better perform overhead household activities LTG Duration 09/20/23 One Impairment Pt does not have an appropriate home exercise program Short Term Goal (STG) Pt to be independent and compliant with an appropriate HEP STG Duration Met Assessment Summary Assessment Some mild improvements overall with pain and ROM, but largely minimal changes. At this point, may continue to benefit from skilled therapeutic intervention, but would strongly recommend further advanced imaging to rule in-out structural damage. Physical Therapy Plan Frequency and Duration Frequency of Treatment 2x/Week Plan of Care Start Date 07/21/23 Plan of Care End Date 09/20/23 Therapeutic Interventions Therapeutic Interventions Home Exercise Program,Joint Mobilizations,Manual Therapy, Neuromuscular Re-education, Patient/Caregiver Education, Self-Care/Home Management,Soft Tissue Mobilization, Therapeutic Activities, Therapeutic Exercises Modalities Cold Pack/Ice Massage,Electric Stimulation,Hot Packs, Ultrasound Other Referrals/Consults Referrals/Consults Recommended Recommend advanced imaging/MRI Next Visit Focus/Plan Next Note Type Treatment Note Next Visit Plan AAROM/PROM, strengthening, pain-control, joint stabilization Plan of Care Dates Plan of Care Start Date 07/21/23 Plan of Care End Date 09/20/23 Electronically Signed by: Milton Yoon, PT 07/21/23 1129 If you are in agreement with this Plan of Care, please return a signed and dated copy. I have reviewed this Plan of Care and certify that the skilled therapy services above are required to meet the patient?s needs. Physician Signature Date Printed Name and Credentials Clinical Instructor Signature Printed Name and Credentials
--- NOTE | 2023-07-28 11:13 | PT.OTN ---
Current Diagnoses Pain in right shoulder (07/28/23) Stiffness of right shoulder, not elsewhere classified (07/28/23) Adhesive capsulitis of right shoulder (07/28/23) Strain of unspecified muscle, fascia and tendon at shoulder and upper arm level, right arm, initial encounter (07/28/23) Physical Therapy Treatment Note PT-OP-A Visit Information Start: 05/21/23 16:43 Freq: Status: Active Protocol: Document 07/28/23 10:32 DCW (Rec: 07/28/23 11:12 DCW [id number]) Out-Patient Physical Therapy Visit Information Visit Information Visit Type Treatment Note Visit Start Time 10:32 Visit Stop Time 11:15 Visit Number 11 Number of BLACK ASH BURNER OPERATOR Visits 0 Evaluation Information Evaluation Date 05/21/23 PT-OP-B Current Condition Start: 05/21/23 16:43 Freq: Status: Active Protocol: Document 05/21/23 15:45 DCW (Rec: 05/24/23 09:40 DCW [id number]) Current Condition History of Current Condition Onset Date 4-5 months ago Current Complaints Right shoulder pain, limited mobility History of Current Condition Pt is a 53 year old female presenting to skilled therapy with a 4-5 month history of fairly limiting shoulder pain. Initial injury occurred when pt hopped off the back of a truck, with her right arm holding onto a pole, which caused her arm to pull awkwardly and pt notes she felt a stretching pop. Has been limited with shoulder mobility and function ever since. Feels the worst either at night trying to sleep, or when reaching back. Referral notes potential subscapularis involvement with possible adhesive capsulitis. MRI has been denied at this point. Treatment Goals Patient/Caregiver Goals To make it feel better. PT-OP-C Subjective Start: 05/21/23 16:43 Freq: Status: Active Protocol: Document 07/28/23 10:32 DCW (Rec: 07/28/23 11:12 DCW [id number]) OP-PT Subjective Patient Comments Patient Comments Pt notes she was exercising her shoulder in the pool, reports she had some increased pain afterward, more than just post-workout soreness. PT-OP-K Range of Motion Start: 05/21/23 16:43 Freq: Status: Active Protocol: Document 07/21/23 11:17 DCW (Rec: 07/21/23 11:33 DCW [id number]) Shoulder Goniometric Range of Motion Shoulder Right Passive Shoulder ROM WFL No Testing Position Supine Flexion 120 Abduction 95 Right Active Flexion 111 Abduction 91 External Rotation at 0 degrees Abduction 62 Internal Rotation Behind Back (text) T10 PT-OP-L Special Tests Start: 05/21/23 16:43 Freq: Status: Active Protocol: Document 07/21/23 11:17 DCW (Rec: 07/21/23 11:33 DCW [id number]) Special Tests Shoulder Special Tests Apprehension Test Test Results Positive Right Passive ER Rotator Cuff Test Results Positive Right Speed's Biceps Test Results Positive Right Lift-Off Rotator Cuff Test Results Positive Right Acosta Jonas Impingement Test Results Negative Grind Labrum Test Results Positive Right Empty Can Test Results Negative Clunk Test Test Results Negative Drop Arm Rotator Cuff Test Results Negative Belly Press Test Results Negative PT-OP-M Strength Start: 05/21/23 16:43 Freq: Status: Active Protocol: Document 05/21/23 15:45 DCW (Rec: 05/24/23 10:32 DCW [id number]) Shoulder Strength Shoulder Manual Muscle Testing Right Flexion 2+ Poor+ Abduction (C5) 2 Poor External Rotation 4+ Good+ Internal Rotation 2 Poor Left Flexion 4+ Good+ Abduction (C5) 4+ Good+ External Rotation 4+ Good+ Internal Rotation 4+ Good+ PT-OP-Q Treatments Start: 05/21/23 16:43 Freq: Status: Active Protocol: Document 07/28/23 10:32 DCW (Rec: 07/28/23 11:12 DCW [id number]) Cardio Equipment Upper Body Ergometer (UBE) Duration (Minutes) 5 Seat Position 12 Height 5 Other 2.5' fwd, 2.5' bkwd Therapeutic Exercises Standing Exercises Chest Press Standing Exercise Name Chest Press Side bilateral Resistance 5# Equipment Used PVC Abduction Standing Exercise Name Shoulder Abduction Side bilateral Resistance 4# Flexion Standing Exercise Name Shoulder flexion Side bilateral Resistance 4# IR Stretch Standing Exercise Name IR stretch /c Pulleys>IR Towel stretch Other Exercises Body Blade Other Exercise Name Body Blade Side right Resistance Yellow Comments Flexion, Abduction Manual Therapy Treatment Soft Tissue Mobilization Cervical Body Location R cervical musculature Periscapulars Body Location R Periscapulars Mobilization Type Strumming,Sustained Pressure Body Position Supine PT-OP-T Assessment and Plan Start: 05/21/23 16:43 Freq: Status: Active Protocol: Document 07/28/23 10:32 DCW (Rec: 07/28/23 11:12 DCW [id number]) Physical Therapy Assessment Impairments Impairments Functional Activities, Functional Mobility,Pain,ROM, Soft Tissue Mobility Goals Two Impairment Pt unable to perform over-head activities Commutator Presser Goal (LTG) Pt to improve right flexion and abduction to >120? in order to better perform overhead household activities LTG Duration 09/20/23 One Impairment Pt does not have an appropriate home exercise program Short Term Goal (STG) Pt to be independent and compliant with an appropriate HEP STG Duration Met Assessment Summary Assessment Discussed again may be time for pt to obtain MRI for further imaging. Continue to focus on shoulder mobility and strengthening as tolerated. Physical Therapy Plan Frequency and Duration Frequency of Treatment 2x/Week Plan of Care Start Date 07/21/23 Plan of Care End Date 09/20/23 Therapeutic Interventions Therapeutic Interventions Home Exercise Program,Joint Mobilizations,Manual Therapy, Neuromuscular Re-education, Patient/Caregiver Education, Self-Care/Home Management,Soft Tissue Mobilization, Therapeutic Activities, Therapeutic Exercises Modalities Cold Pack/Ice Massage,Electric Stimulation,Hot Packs, Ultrasound Other Referrals/Consults Referrals/Consults Recommended Recommend advanced imaging/MRI Next Visit Focus/Plan Next Note Type Treatment Note Next Visit Plan AAROM/PROM, strengthening, pain-control, joint stabilization
--- NOTE | 2023-08-20 12:42 | PT.OTN ---
Current Diagnoses Pain in right shoulder (08/20/23) Stiffness of right shoulder, not elsewhere classified (08/20/23) Adhesive capsulitis of right shoulder (08/20/23) Strain of unspecified muscle, fascia and tendon at shoulder and upper arm level, right arm, initial encounter (08/20/23) Physical Therapy Treatment Note PT-OP-A Visit Information Start: 05/21/23 16:43 Freq: Status: Active Protocol: Document 08/20/23 12:02 DCW (Rec: 08/20/23 12:42 DCW [id number]) Out-Patient Physical Therapy Visit Information Visit Information Visit Type Treatment Note Visit Start Time 12:02 Visit Stop Time 11:15 Visit Number 12 Number of CHAINSTITCH SEWING MACHINE OPERATOR Visits 0 Evaluation Information Evaluation Date 05/21/23 PT-OP-B Current Condition Start: 05/21/23 16:43 Freq: Status: Active Protocol: Document 05/21/23 15:45 DCW (Rec: 05/24/23 09:40 DCW [id number]) Current Condition History of Current Condition Onset Date 4-5 months ago Current Complaints Right shoulder pain, limited mobility History of Current Condition Pt is a 53 year old female presenting to skilled therapy with a 4-5 month history of fairly limiting shoulder pain. Initial injury occurred when pt hopped off the back of a truck, with her right arm holding onto a pole, which caused her arm to pull awkwardly and pt notes she felt a stretching pop. Has been limited with shoulder mobility and function ever since. Feels the worst either at night trying to sleep, or when reaching back. Referral notes potential subscapularis involvement with possible adhesive capsulitis. MRI has been denied at this point. Treatment Goals Patient/Caregiver Goals To make it feel better. PT-OP-C Subjective Start: 05/21/23 16:43 Freq: Status: Active Protocol: Document 08/20/23 12:02 DCW (Rec: 08/20/23 12:42 DCW [id number]) OP-PT Subjective Patient Comments Patient Comments I think it's more sore, but I 've been trying to do more. PT-OP-K Range of Motion Start: 05/21/23 16:43 Freq: Status: Active Protocol: Document 07/21/23 11:17 DCW (Rec: 07/21/23 11:33 DCW [id number]) Shoulder Goniometric Range of Motion Shoulder Right Passive Shoulder ROM WFL No Testing Position Supine Flexion 120 Abduction 95 Right Active Flexion 111 Abduction 91 External Rotation at 0 degrees Abduction 62 Internal Rotation Behind Back (text) T10 PT-OP-L Special Tests Start: 05/21/23 16:43 Freq: Status: Active Protocol: Document 07/21/23 11:17 DCW (Rec: 07/21/23 11:33 DCW [id number]) Special Tests Shoulder Special Tests Apprehension Test Test Results Positive Right Passive ER Rotator Cuff Test Results Positive Right Speed's Biceps Test Results Positive Right Lift-Off Rotator Cuff Test Results Positive Right Acosta Jonas Impingement Test Results Negative Grind Labrum Test Results Positive Right Empty Can Test Results Negative Clunk Test Test Results Negative Drop Arm Rotator Cuff Test Results Negative Belly Press Test Results Negative PT-OP-M Strength Start: 05/21/23 16:43 Freq: Status: Active Protocol: Document 05/21/23 15:45 DCW (Rec: 05/24/23 10:32 DCW [id number]) Shoulder Strength Shoulder Manual Muscle Testing Right Flexion 2+ Poor+ Abduction (C5) 2 Poor External Rotation 4+ Good+ Internal Rotation 2 Poor Left Flexion 4+ Good+ Abduction (C5) 4+ Good+ External Rotation 4+ Good+ Internal Rotation 4+ Good+ PT-OP-Q Treatments Start: 05/21/23 16:43 Freq: Status: Active Protocol: Document 08/20/23 12:02 DCW (Rec: 08/20/23 12:42 DCW [id number]) Cardio Equipment Upper Body Ergometer (UBE) Duration (Minutes) 6 Seat Position 12 Height 5 Other 2.5' fwd, 2.5' bkwd Therapeutic Exercises Sitting Exercises PROM Sitting Exercise Name Shoulder PROM Flexion, Abduction Side bilateral Equipment Used Pulleys Standing Exercises Abduction Standing Exercise Name Shoulder Abduction Side bilateral Resistance 4# Flexion Standing Exercise Name Shoulder flexion Side bilateral Resistance 4# Manual Therapy Treatment Soft Tissue Mobilization Cervical Body Location R cervical musculature Periscapulars Body Location R Periscapulars Mobilization Type Strumming,Sustained Pressure Body Position Supine PT-OP-T Assessment and Plan Start: 05/21/23 16:43 Freq: Status: Active Protocol: Document 08/20/23 12:02 DCW (Rec: 08/20/23 12:42 DCW [id number]) Physical Therapy Assessment Impairments Impairments Functional Activities, Functional Mobility,Pain,ROM, Soft Tissue Mobility Goals Two Impairment Pt unable to perform over-head activities Senior Living Goal (LTG) Pt to improve right flexion and abduction to >120? in order to better perform overhead household activities LTG Duration 09/20/23 One Impairment Pt does not have an appropriate home exercise program Short Term Goal (STG) Pt to be independent and compliant with an appropriate HEP STG Duration Met Assessment Summary Assessment Pt planning to contact PCP next week in regards to an MRI . Continue to work on mobility and strengthening. Physical Therapy Plan Frequency and Duration Frequency of Treatment 2x/Week Plan of Care Start Date 07/21/23 Plan of Care End Date 09/20/23 Therapeutic Interventions Therapeutic Interventions Home Exercise Program,Joint Mobilizations,Manual Therapy, Neuromuscular Re-education, Patient/Caregiver Education, Self-Care/Home Management,Soft Tissue Mobilization, Therapeutic Activities, Therapeutic Exercises Modalities Cold Pack/Ice Massage,Electric Stimulation,Hot Packs, Ultrasound Other Referrals/Consults Referrals/Consults Recommended Recommend advanced imaging/MRI Next Visit Focus/Plan Next Note Type Treatment Note Next Visit Plan AAROM/PROM, strengthening, pain-control, joint stabilization
--- NOTE | 2023-08-27 15:58 | PT.OTN ---
Current Diagnoses Pain in right shoulder (08/27/23) Stiffness of right shoulder, not elsewhere classified (08/27/23) Adhesive capsulitis of right shoulder (08/27/23) Strain of unspecified muscle, fascia and tendon at shoulder and upper arm level, right arm, initial encounter (08/27/23) Physical Therapy Treatment Note PT-OP-A Visit Information Start: 05/21/23 16:43 Freq: Status: Active Protocol: Document 08/27/23 15:20 DCW (Rec: 08/27/23 15:58 DCW [id number]) Out-Patient Physical Therapy Visit Information Visit Information Visit Type Treatment Note Visit Start Time 15:20 Visit Stop Time 15:50 Visit Number 13 Number of HEALTHCARE SOCIAL WORKER Visits 0 Evaluation Information Evaluation Date 05/21/23 PT-OP-B Current Condition Start: 05/21/23 16:43 Freq: Status: Active Protocol: Document 05/21/23 15:45 DCW (Rec: 05/24/23 09:40 DCW [id number]) Current Condition History of Current Condition Onset Date 4-5 months ago Current Complaints Right shoulder pain, limited mobility History of Current Condition Pt is a 53 year old female presenting to skilled therapy with a 4-5 month history of fairly limiting shoulder pain. Initial injury occurred when pt hopped off the back of a truck, with her right arm holding onto a pole, which caused her arm to pull awkwardly and pt notes she felt a stretching pop. Has been limited with shoulder mobility and function ever since. Feels the worst either at night trying to sleep, or when reaching back. Referral notes potential subscapularis involvement with possible adhesive capsulitis. MRI has been denied at this point. Treatment Goals Patient/Caregiver Goals To make it feel better. PT-OP-C Subjective Start: 05/21/23 16:43 Freq: Status: Active Protocol: Document 08/27/23 15:20 DCW (Rec: 08/27/23 15:58 DCW [id number]) OP-PT Subjective Patient Comments Patient Comments It's the same. I'm waiting for Dr Cisneros to get back to me (regarding MRI). PT-OP-K Range of Motion Start: 05/21/23 16:43 Freq: Status: Active Protocol: Document 07/21/23 11:17 DCW (Rec: 07/21/23 11:33 DCW [id number]) Shoulder Goniometric Range of Motion Shoulder Right Passive Shoulder ROM WFL No Testing Position Supine Flexion 120 Abduction 95 Right Active Flexion 111 Abduction 91 External Rotation at 0 degrees Abduction 62 Internal Rotation Behind Back (text) T10 PT-OP-L Special Tests Start: 05/21/23 16:43 Freq: Status: Active Protocol: Document 07/21/23 11:17 DCW (Rec: 07/21/23 11:33 DCW [id number]) Special Tests Shoulder Special Tests Apprehension Test Test Results Positive Right Passive ER Rotator Cuff Test Results Positive Right Speed's Biceps Test Results Positive Right Lift-Off Rotator Cuff Test Results Positive Right Acosta Jonas Impingement Test Results Negative Grind Labrum Test Results Positive Right Empty Can Test Results Negative Clunk Test Test Results Negative Drop Arm Rotator Cuff Test Results Negative Belly Press Test Results Negative PT-OP-M Strength Start: 05/21/23 16:43 Freq: Status: Active Protocol: Document 05/21/23 15:45 DCW (Rec: 05/24/23 10:32 DCW [id number]) Shoulder Strength Shoulder Manual Muscle Testing Right Flexion 2+ Poor+ Abduction (C5) 2 Poor External Rotation 4+ Good+ Internal Rotation 2 Poor Left Flexion 4+ Good+ Abduction (C5) 4+ Good+ External Rotation 4+ Good+ Internal Rotation 4+ Good+ PT-OP-Q Treatments Start: 05/21/23 16:43 Freq: Status: Active Protocol: Document 08/27/23 15:20 DCW (Rec: 08/27/23 15:58 DCW [id number]) Cardio Equipment Upper Body Ergometer (UBE) Duration (Minutes) 6 Seat Position 12 Height 5 Other 2.5' fwd, 2.5' bkwd Therapeutic Exercises Standing Exercises Abduction Standing Exercise Name Shoulder Abduction Side bilateral Resistance 4# Flexion Standing Exercise Name Shoulder flexion Side bilateral Resistance 4# Other Exercises Body Blade Other Exercise Name Body Blade Side right Resistance Yellow Comments Flexion, Abduction Manual Therapy Treatment Soft Tissue Mobilization Cervical Body Location R cervical musculature Periscapulars Body Location R Periscapulars Mobilization Type Strumming,Sustained Pressure Body Position Supine PT-OP-T Assessment and Plan Start: 05/21/23 16:43 Freq: Status: Active Protocol: Document 08/27/23 15:20 DCW (Rec: 08/27/23 15:58 DCW [id number]) Physical Therapy Assessment Impairments Impairments Functional Activities, Functional Mobility,Pain,ROM, Soft Tissue Mobility Goals Two Impairment Pt unable to perform over-head activities Hair Preparer Goal (LTG) Pt to improve right flexion and abduction to >120? in order to better perform overhead household activities LTG Duration 09/20/23 One Impairment Pt does not have an appropriate home exercise program Short Term Goal (STG) Pt to be independent and compliant with an appropriate HEP STG Duration Met Assessment Summary Assessment Pt largely plateauing at this time. Will likely work toward discharge to independent HEP with hopes pt is able to get in for MRI. Physical Therapy Plan Frequency and Duration Frequency of Treatment 2x/Week Plan of Care Start Date 07/21/23 Plan of Care End Date 09/20/23 Therapeutic Interventions Therapeutic Interventions Home Exercise Program,Joint Mobilizations,Manual Therapy, Neuromuscular Re-education, Patient/Caregiver Education, Self-Care/Home Management,Soft Tissue Mobilization, Therapeutic Activities, Therapeutic Exercises Modalities Cold Pack/Ice Massage,Electric Stimulation,Hot Packs, Ultrasound Other Referrals/Consults Referrals/Consults Recommended Recommend advanced imaging/MRI Next Visit Focus/Plan Next Note Type Treatment Note Next Visit Plan AAROM/PROM, strengthening, pain-control, joint stabilization
--- NOTE | 2023-11-09 16:54 | PT-OP ANOTE ---
Spoke with nurse Bella from pt's PCP office today, pt has received MRI, showing near-full thickness supraspinatus tear. PCP office inquiring if pt should return to PT, or referral to ortho. As patient has attended 13 visits over three months, PT has likely plateaued, and therapist recommended referral to Ortho. Nursing in agreement.
--- NOTE | 2024-01-31 17:55 | PT.OPDS ---
Current Diagnoses Pain in right shoulder (08/27/23) Stiffness of right shoulder, not elsewhere classified (08/27/23) Adhesive capsulitis of right shoulder (08/27/23) Strain of unspecified muscle, fascia and tendon at shoulder and upper arm level, right arm, initial encounter (08/27/23) Visit Care Team Role Provider Type Laureano Cisneros DO Attending Provider Physician Family Provider Primary Care Provider Referring Provider Specialty: [facility] Address: [address] [place] [address], [facility] Email: [email or web address] Visit Number Visit Number [id number] Discharge Summary PT-OP-B Current Condition Start: 05/21/23 16:43 Freq: Status: Active Protocol: Document 05/21/23 15:45 DCW (Rec: 05/24/23 09:40 DCW [id number]) Current Condition History of Current Condition Onset Date 4-5 months ago Current Complaints Right shoulder pain, limited mobility History of Current Condition Pt is a 53 year old female presenting to skilled therapy with a 4-5 month history of fairly limiting shoulder pain. Initial injury occurred when pt hopped off the back of a truck, with her right arm holding onto a pole, which caused her arm to pull awkwardly and pt notes she felt a stretching pop. Has been limited with shoulder mobility and function ever since. Feels the worst either at night trying to sleep, or when reaching back. Referral notes potential subscapularis involvement with possible adhesive capsulitis. MRI has been denied at this point. Treatment Goals Patient/Caregiver Goals To make it feel better. PT-OP-C Subjective Start: 05/21/23 16:43 Freq: Status: Active Protocol: Document 08/27/23 15:20 DCW (Rec: 08/27/23 15:58 DCW [id number]) OP-PT Subjective Patient Comments Patient Comments It's the same. I'm waiting for Dr Cisneros to get back to me (regarding MRI). PT-OP-K Range of Motion Start: 05/21/23 16:43 Freq: Status: Active Protocol: Document 07/21/23 11:17 DCW (Rec: 07/21/23 11:33 DCW [id number]) Shoulder Goniometric Range of Motion Shoulder Right Passive Shoulder ROM WFL No Testing Position Supine Flexion 120 Abduction 95 Right Active Flexion 111 Abduction 91 External Rotation at 0 degrees Abduction 62 Internal Rotation Behind Back (text) T10 PT-OP-L Special Tests Start: 05/21/23 16:43 Freq: Status: Active Protocol: Document 07/21/23 11:17 DCW (Rec: 07/21/23 11:33 DCW [id number]) Special Tests Shoulder Special Tests Apprehension Test Test Results Positive Right Passive ER Rotator Cuff Test Results Positive Right Speed's Biceps Test Results Positive Right Lift-Off Rotator Cuff Test Results Positive Right [place] Impingement Test Results Negative Grind Labrum Test Results Positive Right Empty Can Test Results Negative Clunk Test Test Results Negative Drop Arm Rotator Cuff Test Results Negative Belly Press Test Results Negative PT-OP-M Strength Start: 05/21/23 16:43 Freq: Status: Active Protocol: Document 05/21/23 15:45 DCW (Rec: 05/24/23 10:32 DCW [id number]) Shoulder Strength Shoulder Manual Muscle Testing Right Flexion 2+ Poor+ Abduction (C5) 2 Poor External Rotation 4+ Good+ Internal Rotation 2 Poor Left Flexion 4+ Good+ Abduction (C5) 4+ Good+ External Rotation 4+ Good+ Internal Rotation 4+ Good+ PT-OP-T Assessment and Plan Start: 05/21/23 16:43 Freq: Status: Active Protocol: Document 01/31/24 17:54 DCW (Rec: 01/31/24 17:55 DCW [id number]) Physical Therapy Assessment Assessment Summary Assessment Pt has not scheduled a follow- up, and has not been seen in more than five months. Pt will be discharged from skilled therapy at this time. Will need a new referral in order to return in the future. Physical Therapy Plan Discharge Physical Therapy Discharge Reasons No Longer Attending PT
== END 2024-02-02 10:15 | disposition home or self-care (01) ==
LOC: PHYS 15:15
PROVIDERS: Family Provider Family Medicine; PCP Family Medicine; Referring Provider Family Medicine; Visit Provider Family Medicine
DX: M75.01 Adhesive capsulitis of right shoulder (principal); S46.911A Strain of unspecified muscle, fascia and tendon at shoulder and upper arm level, right arm, initial encounter; M25.511 Pain in right shoulder; M25.611 Stiffness of right shoulder, not elsewhere classified
CPT/HCPCS: 97110; 97140; 97162

== ENCOUNTER → 2023-10-19 07:04 | Outpatient (CLI) | payer OTHER, SELFPAY ==
[2022-05-12 10:46] VITALS: BMI 36.3
--- NOTE | 2023-10-19 11:15 | DI.MRI.S_ITS ---
PROCEDURE: MR SHOULDER RT WO CON INDICATIONS: unresolved pain after physical therapy TECHNIQUE: Noncontrast oblique coronal T2 fast spin echo with fat saturation, oblique sagittal T1 spin echo and T2 fast spin echo with fat saturation, axial T1 spin echo and T2 fast spin echo with fat saturation through the shoulder. COMPARISON: [facility], CR, XR SHOULDER RT MIN 2V, 03/23/2023, 10:11. FINDINGS: Image quality: Somewhat limited evaluation given patient motion. Rotator cuff: In the supraspinatus, there is focal, bursa-sided, near full-thickness tear of the most anterior footprint of the supraspinatus (series 8, image 14, and series 10, image 6). Additional mild tendinosis of the supraspinatus. The infraspinatus is unremarkable. The teres minor and the subscapularis are unremarkable. No fatty atrophy or muscle edema.. Bones and bursae: Moderate degenerative changes of the acromioclavicular joint. Type 1 acromion. No os acromial. Trace subacromial/subdeltoid bursitis. Mild subchondral cystic changes in the greater tuberosity, reactive. No acute fracture. No focal chondral defects of the glenohumeral joint. Capsule and soft tissues: The labrum is grossly intact. The extra-articular biceps tendon is unremarkable. The intra-articular biceps tendon is unremarkable as well. Trace glenohumeral effusion. Mild subcoracoid bursitis. No intra-articular body. IMPRESSION: 1. Somewhat limited exam given patient motion. 2. Focal, bursal sided, near full-thickness tear of the most anterior footprint of the supraspinatus. 3. Moderate degenerative changes of the acromioclavicular joint. Dictated by: Kristi Valadez M.D. on 10/19/2023 at 19:46 Approved by: Krisit Valadez M.D. on 10/19/2023 at 19:55
== END ==
PROVIDERS: Family Provider Family Medicine; PCP Family Medicine; Referring Provider Family Medicine; Visit Provider Family Medicine
DX: S46.011D Strain of muscle(s) and tendon(s) of the rotator cuff of right shoulder, subsequent encounter (principal); M75.01 Adhesive capsulitis of right shoulder; M25.511 Pain in right shoulder; G89.29 Other chronic pain
CPT/HCPCS: 73221

== ENCOUNTER → 2023-12-08 06:49 | Outpatient (CLI) | payer OTHER, SELFPAY ==
[2022-05-12 10:46] VITALS: BMI 36.3
[2023-12-08 08:52] LABS: Add Manual Diff / Slide Review NO; Basophils Absolute Auto 100 /uL (0-100); Basophils Percent Auto 0.7 % (0-2); Eosinophils Absolute Auto 100 /uL (0-450); Eosinophils Percent Auto 1.8 % (2-4); Hematocrit 41.5 % (36-46); Hemoglobin 13.8 g/dL (12.0-16.0); Lymphocytes Absolute Auto 2300 /uL (1100-4500); Lymphocytes Percent Auto 33.2 % (25-40); Mean Corpuscular HGB Conc 33.3 % (30-36); Mean Corpuscular Hemoglobin 29.3 PG (26-34); Mean Corpuscular Volume 88.1 fL (80-100); Monocytes Absolute Auto 400 /uL (0-900); Monocytes Percent Auto 5.9 % (3-14); Neutrophils Absolute Auto 4100 /uL (1500-7000); Neutrophils Percent Auto 58.4 % (50-75); Platelet Count 182 X10^3/uL (150-400); Red Blood Cell Count 4.71 X10^6/uL (4.0-5.2); Red Cell Distribution Width 14.4 % (11.6-14.8); White Blood Cell Count 7.1 X10^3/uL (4.5-11.0)
[2023-12-08 09:17] LABS: Alanine Aminotransferase 31 IU/L (<35); Albumin Globulin Ratio 1.3 (1.0-2.8); Alkaline Phosphatase 66 U/L (38-126); Aspartate Aminotransferase 28 IU/L (14-36); Bilirubin Total 0.5 mg/dL (0.2-1.3); Blood Urea Nitrogen 12 mg/dL (7-17); Calcium 9.9 mg/dL (8.4-10.2); Carbon Dioxide 27 mmol/L (22-32); Chloride 107 mmol/L (98-107); Cholesterol 116 mg/dL (140-199); Estimated Glomerular Filt Rate > 60 mL/min (>60); Glucose 97 mg/dL (70-100); HDL Cholesterol 42 mg/dL (40-60); HEMOLYSIS < 15 (0-50); LDL Cholesterol Calculated 59 mg/dL (<100); Sodium 140 mmol/L (137-145); Triglycerides 75 mg/dL (35-150)
[2023-12-08 09:51] LABS: TSH w/ Reflex to FT4 1.24 uIU/mL (0.47-4.68)
== END ==
PROVIDERS: Family Provider Family Medicine; PCP Family Medicine; Referring Provider Family Medicine; Visit Provider Family Medicine
DX: E11.9 Type 2 diabetes mellitus without complications (principal); E78.2 Mixed hyperlipidemia; I10 Essential (primary) hypertension; Z79.899 Other long term (current) drug therapy; E87.6 Hypokalemia
CPT/HCPCS: 36415; 80053; 80061; 83036; 84443; 85025

== ENCOUNTER → 2023-12-13 06:33 | Outpatient (CLI) | payer OTHER, SELFPAY ==
[2022-05-12 10:46] VITALS: BMI 36.3
[2023-12-13 07:44] LABS: Collection Time Urine 24 Hours; Microalbumin 24 Hour Urine 10.9 mg/day (<30); Microalbumin Excretion Rate Ur 7.5 ug/min (<20); Microalbumin Urine Random 0.7 mg/dL (0-1.6); Total Volume Urine 1550 mL
== END ==
PROVIDERS: Family Provider Family Medicine; PCP Family Medicine; Referring Provider Family Medicine; Visit Provider Family Medicine
DX: E11.65 Type 2 diabetes mellitus with hyperglycemia (principal)
CPT/HCPCS: 82043

== ENCOUNTER 2024-03-01 06:20 | Emergency (ER) | payer OTHER, SELFPAY ==
[2022-05-12 10:46] VITALS: BMI 36.3
[2024-03-01 06:34] VITALS: BP 167/99; PULSE 80; RESP 16; TEMP 35.9; O2SAT 98; BMI 30.5
--- NOTE | 2024-03-01 06:38 | ED_ITS ---
HPI - Back Pain/Injury General Chief Complaint: Back Pain/Injury Stated Complaint: back pain Time Seen by Provider: 03/01/24 06:21 History of Present Illness HPI Narrative: 53-year-old female presents requesting a Toradol shot for lower back pain. She states that several days ago she woke up with a very tight and stiff lower back. She has been taking Tylenol and ibuprofen and stretching with out significant relief. She states that approximately 1 year ago when she had something similar happen she received a Toradol shot in the emergency department and that helped her a lot. She denies bowel or bladder incontinence, denies saddle anesthesia. It is able to ambulate without difficulty. Related Data Previous Rx's Medication Instructions Recorded doxycycline hyclate 100 mg tablet 100 mg PO BID #20 tabs 02/08/23 naproxen 500 mg tablet 500 mg PO BID PRN shoulder pain 06/10/23 #60 tabs semaglutide 0.25 mg or 0.5 mg (2 0.5 mg (0.736 mL) SUBCUT QWEEK #12 08/30/23 mg/3 mL) subcutaneous pen injector mL (Ozempic) alprazolam 0.25 mg tablet 0.25 mg PO TID PRN pre procedure 09/16/23 sedation #3 tabs albuterol sulfate 90 mcg/actuation 2 puff inhalation Q4-6H PRN 10/19/23 aerosol inhaler shortness of breath or wheezing #8.5 grams blood-glucose sensor (Dexcom G6 #3 ea 10/26/23 Sensor device) metformin 1,000 mg tablet 1,000 mg PO BID #180 tabs 12/23/23 rosuvastatin 10 mg tablet 10 mg PO DAILY #90 tabs 12/23/23 empagliflozin 25 mg tablet 25 mg PO QAM #90 tabs 01/11/24 (Jardiance) lisinopril 40 mg tablet 40 mg PO BID #180 tabs 02/02/24 blood-glucose transmitter (Dexcom #1 ea 02/23/24 G6 Transmitter device) Allergies Allergy/AdvReac Type Severity Reaction Status Date / Time morphine AdvReac Severe Makes her Verified 12/14/23 08:44 sick oxycodone AdvReac Nausea Verified 12/14/23 08:44 Patient History Medical History Well adult exam Adhesive capsulitis Right shoulder strain Weight loss counseling, encounter for Lipoma of anterior chest wall [id number] condition Migraine headache with aura Asymptomatic PVCs Somatic dysfunction of lower extremity Piriformis syndrome of right side 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 Intermittent palpitations Body posture problem Segmental and somatic dysfunction of abdomen and other regions Lumbar region somatic dysfunction Thoracic region somatic dysfunction Cervical somatic dysfunction Chronic neck pain Sacral region somatic dysfunction Pelvic somatic dysfunction Chronic right-sided low back pain without sciatica Screen for colon cancer Reflux esophagitis Conjunctivitis Type 2 diabetes mellitus Mixed hyperlipidemia Asthma (~2002) Hay fever (~1999) Shoulder pain Chicken pox (~1973) Anemia Ovarian cyst (~2015) Fibroids (~2015) Kidney stones (~2016) GERD (gastroesophageal reflux disease) (~2016) Right knee sprain Surgical History History of hysterectomy (04/15/21) H/O right knee surgery Anesthesia Status post endometrial ablation (~01/2016) Family History Mother Age: 79 Heart disease Hypertension Diabetes mellitus Sister Age: 57 Heart disease Hypertension Mental health problem Diabetes mellitus Sister Age: 55 Heart disease Hypertension Father Cancer Grandmother Diabetes mellitus Social History household members: spouse Smoking Status: Never smoker alcohol intake: current Smoking Status: Never smoker alcohol intake frequency: 0-2 drinks per day Substance Use Type: does not use Exam Initial Vital Signs Initial Vital Signs: Vital Signs Temperature 96.6 F L 03/01/24 06:34 Pulse Rate 80 03/01/24 06:34 Respiratory Rate 16 03/01/24 06:34 Blood Pressure 167/99 H 03/01/24 06:34 Pulse Oximetry 98 03/01/24 06:34 Oxygen Delivery Method Room Air 03/01/24 06:34 Const: Awake, alert, no acute distress, nontoxic appearing MSK: no midline tenderness, generalized tenderness along lower lumbar back. Skin: Warm, Dry, intact, no rashes Neuro: AO x3, CN II-XII grossly intact, moves all extremities, normal gait Course Orders Ordered: Discontinued Medications Ketorolac Tromethamine (Ketorolac 30 Mg/Ml Vial) 30 mg IM NOW ONE Stop: 03/01/24 06:39 Last Admin: 03/01/24 06:42 Dose: 30 mg Documented By: MARIA DE JESUS SOLANO - Back Pain/Injury MDM Narrative Medical decision making narrative: Patient requesting Toradol injection for lower back pain so that she may go to [facility] today. No signs or symptoms of cauda equina. No trauma, no indication for imaging. Toradol shot administered. Supportive measures counseled for home Discharge Plan Departure Patient Disposition: Home Clinical Impression: Low back pain Instructions: DI for Back Strain or Sprain Activity Restrictions/Additional Instructions: Continue to take Tylenol and ibuprofen per label instructions for pain. Continue to stretch gently to help loosen up your lower back. You may also consider getting massage therapy. Prescriptions: No Action naproxen 500 mg tablet 500 mg PO BID PRN (Reason: shoulder pain) Qty: 60 1RF Rx Instructions: take twice a day as needed for shoulder pain Ozempic 0.25 mg or 0.5 mg (2 mg/3 mL) pen injector 0.5 mg SUBCUT QWEEK Qty: 12 3RF Rx Instructions: Please dispense a full 3 mo supply with 3 refills. 1 year total alprazolam 0.25 mg tablet 0.25 mg PO TID PRN (Reason: pre procedure sedation) Qty: 3 0RF albuterol sulfate 90 mcg/actuation HFA aerosol inhaler 2 puff inhalation Q4-6H PRN (Reason: shortness of breath or wheezing) Qty: 8.5 3RF (DME) Dexcom G6 Sensor Device See Rx Instructions .ROUTE .COMPLEX Qty: 3 5RF Dose Instruction: USE TO MONITOR BLOOD SUGARS Rx Instructions: USE TO MONITOR BLOOD SUGARS metformin 1,000 mg tablet 1,000 mg PO BID Qty: 180 3RF rosuvastatin 10 mg tablet 10 mg PO DAILY Qty: 90 3RF Jardiance 25 mg tablet 25 mg PO QAM Qty: 90 3RF lisinopril 40 mg tablet 40 mg PO BID Qty: 180 3RF (DME) Dexcom G6 Transmitter Device See Rx Instructions .ROUTE .COMPLEX Qty: 1 0RF Dose Instruction: USE TO CONTINUOUSLY MONITOR BLOOD SUGAR Rx Instructions: USE TO CONTINUOUSLY MONITOR BLOOD SUGAR doxycycline hyclate 100 mg tablet 100 mg PO BID Qty: 20 0RF Referrals: Laureano Cisneros, DO [Primary Care Provider] - Stand Alone Forms: Patient Portal/API/Survey
[2024-03-01] MEDS: KETOROLAC 30 MG/ML VIAL IM (06:42)
== END 2024-03-01 06:49 | disposition home or self-care (01) ==
PROVIDERS: Emergency Provider Emergency Medicine; Family Provider Family Medicine; PCP Family Medicine
DX: M54.50 Low back pain, unspecified (principal)
CPT/HCPCS: 96372; 99283; J1885

== ENCOUNTER → 2024-05-31 06:54 | Outpatient (CLI) | payer OTHER, SELFPAY ==
[2022-05-12 10:46] VITALS: BMI 36.3
[2024-05-31 08:15] LABS: Hemoglobin A1C% w Est Avg Glu 6.1 % (4.0-6.0)
[2024-05-31 08:21] LABS: Alanine Aminotransferase 28 IU/L (<35); Albumin 4.4 g/dL (3.5-5.0); Albumin Globulin Ratio 1.7 (1.0-2.8); Alkaline Phosphatase 72 U/L (38-126); Aspartate Aminotransferase 26 IU/L (14-36); BUN Creatinine Ratio 17.9 (6-22); Bilirubin Total 0.5 mg/dL (0.2-1.3); Blood Urea Nitrogen 10 mg/dL (7-17); Calcium 9.9 mg/dL (8.4-10.2); Carbon Dioxide 27 mmol/L (22-32); Chloride 107 mmol/L (98-107); Estimated Glomerular Filt Rate > 60 mL/min (>60); Globulin 2.6 g/dL (1.7-4.1); Glucose 100 mg/dL (70-100); HEMOLYSIS < 15 (0-50); Potassium 4.3 mmol/L (3.4-5.1); Sodium 141 mmol/L (137-145)
== END ==
PROVIDERS: Family Provider Family Medicine; PCP Family Medicine; Referring Provider Family Medicine; Visit Provider Family Medicine
DX: E11.9 Type 2 diabetes mellitus without complications (principal); E78.2 Mixed hyperlipidemia
CPT/HCPCS: 36415; 80053; 83036

== ENCOUNTER → 2025-02-15 09:40 | Outpatient (CLI) | payer OTHER, SELFPAY ==
[2022-05-12 10:46] VITALS: BMI 36.3
[2025-02-15 10:47] LABS: Hemoglobin A1C% w Est Avg Glu 6.0 % (4.0-6.0)
[2025-02-15 10:59] LABS: Alanine Aminotransferase 29 IU/L (<35); Albumin 4.7 g/dL (3.5-5.0); Albumin Globulin Ratio 1.6 (1.0-2.8); Alkaline Phosphatase 85 U/L (38-126); Blood Urea Nitrogen 10 mg/dL (7-17); Calcium 10.8 mg/dL (8.4-10.2); Carbon Dioxide 25 mmol/L (22-32); Chloride 107 mmol/L (98-107); Cholesterol 106 mg/dL (140-199); Estimated Glomerular Filt Rate > 60 mL/min (>60); Globulin 3.0 g/dL (1.7-4.1); Glucose 88 mg/dL (70-99); HDL Cholesterol 43 mg/dL (40-60); HEMOLYSIS < 15 (0-50); Potassium 4.8 mmol/L (3.4-5.1); Sodium 142 mmol/L (137-145); Total Protein 7.7 g/dL (6.3-8.2); Triglycerides 71 mg/dL (35-150)
[2025-02-15 11:53] LABS: Microalbumi Creatinin Ratio Ur 12.0 ug/mg CR (<30)
== END ==
PROVIDERS: Family Provider Family Medicine; PCP Family Medicine; Referring Provider Family Medicine; Visit Provider Family Medicine
DX: I10 Essential (primary) hypertension (principal); E11.9 Type 2 diabetes mellitus without complications; E78.2 Mixed hyperlipidemia
CPT/HCPCS: 36415; 80053; 80061; 82043; 82570; 83036